=== PATIENT | male | born 1960 | race Caucasian/White ===

== ENCOUNTER 2023-11-04 16:54 | Inpatient (IN) | payer BC, SELFPAY ==
[2023-11-04] VITALS (18 sets, daily range): BP systolic 98–135; BP diastolic 67–115
[2023-11-04] MEDS: LOW STRENGTH ASPIRIN 246 MG PO (14:41)
[2023-11-04 14:48] LABS: % Basophils 0.1 % (0-2); % Eosinophils 0.1 % (0-6); % Immature Granulocytes 0.2 % (0-0.5); % Lymphocytes 19.4 % (20.5-51.1); % Monocytes 8.5 % (1.7-9.3); % Neutrophils 71.7 % (42.2-75.2); Absolute Monocytes 0.9 10^3/uL (0.1-0.6); Absolute Neutrophils 7.2 10^3/uL (1.4-6.5); Hemoglobin 11.5 g/dL (13.0-18.0); Mean Corp Hgb Conc. 32.9 g/dL (33.0-37.0); Mean Corpuscular Hgb 29.2 pg (27.0-31.0); Mean Corpuscular Volume 88.8 fL (80.0-94.0); Mean Platelet Volume 9.5 fL (7.4-10.4); Nucleated Red Blood Cells % 0 % (-); Platelet Count 317 10^3/uL (130-400); Red Blood Cell Count 3.94 10^6/uL (4.70-6.10); Red Cell Dist. Width 12.8 % (11.5-14.5); White Blood Cell Count 10.1 10^3/uL (4.8-10.8)
--- NOTE | 2023-11-04 14:48 | ED.GENMED ---
History of Present Illness
<Jono Rose, DO - Last Filed: 11/04/23 16:08>
General
Chief Complaint: Chest Pain
Source: patient
Exam Limitations: none
Time Seen by Provider: 11/04/23 14:33
History of Present Illness
History of Present Illness:
See MDM
Past History
<Jono Rose, DO - Last Filed: 11/04/23 16:08>
Past History
ED Past Medical History: CVA and NIDDM
Social History
Tobacco: Smoker
Alcohol: None
Phy Exam
<Jono Rose, DO - Last Filed: 11/04/23 16:08>
Physical Exam
Physical Exam:
See MDM
Scores
<Jono Rose, DO - Last Filed: 11/04/23 16:08>
Heart Score for Chest Pain Patients
STEMI patient?: No
History: Highly Suspicious
ECG: Significant ST-Depression
Age: >45 - <65 years
Risk Factors: >/= 3 Risk Factors or History of CAD
Troponin: >/= 3 x Normal Limit
Heart Score for Chest Pain Patients: 9
Heart Score Risk: 72.7 % MACE over next 6 weeks
<Erica Fabian, DO - Last Filed: 11/04/23 16:56>
Heart Score for Chest Pain Patients
Heart Score for Chest Pain Patients: 9
Heart Score Risk: 72.7 % MACE over next 6 weeks
Course
<Jono Rose, DO - Last Filed: 11/04/23 16:08>
Orders/Labs/Results
Orders:
Orders
11/04/23 14:19
Electrocardiogram (*1) Urgent
Reason for Study: Chest Pain
EKG- Treatment ONCE
11/04/23 14:37
Electrocardiogram (*1) Urgent
Reason for Study: Chest Pain
Cardiac Monitoring- Treatment ONCE
IV Insert/Care/Rem.- Treatment PRN
O2 Therapy [RESP] Urgent
Titrate/Wean O2 to maintain O2 sat greater than (%): 90
Special Instructions: Maintain sats >/=90%
Pulse Ox/spot Check [RESP] Urgent
Quantity: 1
Special Instructions: ON ROOM AIR
11/04/23 14:39
Comprehensive Metabolic Panel Urgent
Creatine Phosphokinase Urgent
NT-proBNP Urgent
Comment: ADD ON
Prothrombin Time Urgent
Troponin I Urgent
Aspirin Chewable [Low Strength Aspirin] 324 mg PO NOW STA
11/04/23 14:41
Echo 2D MMode Color/Doppler Routine
Reason for Study: abnormal EKG, chest pain
Complete Blood Count/With Diff Urgent
11/04/23 14:46
Heparin 4,000 units IV NOW STA
11/04/23 14:47
CARDIOLOGY CONSULT Urgent
Consulting Provider: Genaro Ziegler
Was physician already notified: Yes
Nursing to Place Non Medication Order As Directed
Physician Order: PTT 6 hours after initial start of Heparin infusion
Above order entered?: Yes
11/04/23 14:50
CR Chest Portable - 1 View Urgent
Comment:
Reason For Exam: exertional dyspnea
Reason Study Needs to be Portable: Patient Unstable
11/04/23 Dinner
1200 Calorie (10 carb) Diabetic
Flush Continuous pump feedings with water (mL/hr): 25
Heparin 38493 Units/250 ml 25,000 units in 250 ml IV PER PROTOCOL
Weight to be used for heparin protocol in kilograms (kg):: 74.6
Protocol:: Cardiac Tx/Acute Coronary
PTT Goal Range to be used:: PTT 73 to 111 seconds
Order type:: Initial
INITIAL Infusion Dose (UNITS/KG/hr) & then follow protocol:: 15 units/kg/hr
Infusion Dose in UNITS/hr & then follow protocol (UNITS/hr):: 1,100
INFUSION RATE in mL/hr & then follow protocol (mL/hr):: 11
PTT less than or equal to 64 seconds:: Increase rate by 200 units/hr (+ 2 mL/hr)
PTT 64.1 to 72.9 seconds:: Increase rate by 100 units/hr (+ 1 mL/hr)
PTT 73 to 111 seconds:: Target Range. No change in rate.
PTT 111.1 to 130.9 seconds:: Decrease rate by 100 units/hr (- 1 mL/hr)
PTT 131 to 199.9 seconds:: HOLD for 1 hr. Then decrease rate by 200 units/hr (- 2 mL/hr)
PTT greater than or equal to 200 seconds:: HOLD for 2 hrs & Notify Provider. Then decrease by 200 units/hr (-
2 mL/hr)
Lab follow-up:: Each change, PTT q6h until 2 consecutive are therapeutic. Then PTT
daily.
11/04/23 15:22
Add On- LAB Routine
Tests Added?: CK and CK MB
11/04/23 15:44
Add On- LAB Routine
Tests Added?: NT pro BNP
11/04/23 16:07
Add On- LAB Urgent
Tests Added?: BNP
11/04/23 16:43
Admit/Transfer Patient As Directed
Co-Sign Provider:
Level of Care: Inpatient admission
Assign to:: Telemetry
Physician / Group: Rui
Transfer to: Telemetry
Diagnosis: ACS
Patient Condition: Fair
Reason for Telemetry: Chest Pain syndromes
Date to Stop Telemetry: 11/06/23
Time to Stop Telemetry: 11:00
Reason for Hospitalization: ACS
Expected length of stay greater than two midnights?: Yes
ELOS- Estimated Length of Stay in days: 2
I certify the patient meets the requirements for IP care: Yes
11/04/23 16:45
Code Status As Directed
Resuscitation Status: Full Code
11/04/23 16:53
Dextrose 50%-Water [Dextrose 50% Syringe] 12.5 grams IV [id number] PRN
Dextrose 50%-Water [Dextrose 50% Syringe] 12.5 grams IV [id number] PRN
Glucagon [GlucaGen] 1 mg IM PRN PRN
Glucagon [GlucaGen] 1 mg IM PRN PRN
11/04/23 16:54
Bedside Glucose Monitoring As Directed
Frequency: AC&HS
Comment: Change to q6h if pt on TPN, tube feeding or not eating
11/04/23 16:55
Bedside Glucose Monitoring As Directed
Frequency: AC&HS
Comment: Change to q6h if pt on TPN, tube feeding or not eating
11/04/23 18:00
Rosuvastatin Calcium [Crestor] 20 mg PO QPM
11/04/23 20:00
EKG [Electrocardiogram (*1)] Routine
Reason for Study: Abnormal EKG
11/04/23 20:17
PTT Urgent
11/05/23 02:00
Troponin I Q6H
11/05/23 06:00
EKG [Electrocardiogram (*1)] IN AM
Reason for Study: Abnormal EKG
NPO
Allow oral meds: Yes
Allow clear liquids: No
Hgba1c [Glycohemoglobin (HgbA1c)] IN AM
Lipid Profile [Cardiovascular Evaluation] IN AM
11/05/23 07:30
Insulin Aspart Corrective Low [Novolog Flexpen-Low Resistance] See Protocol SC AC
Insulin Aspart Corrective Mod [Novolog Flexpen-Moderate Resistance] See Protocol SC AC
11/05/23 08:00
Aspirin Chewable [Low Strength Aspirin] 81 mg PO DAILY
11/06/23 11:00
DC Protocol for Telemetry ONCE
Abnormal Lab Results
11/04/23 11/04/23
14:39 14:41
RBC 3.94 L 10^6/uL
(4.70-6.10)
Hgb 11.5 L g/dL
(13.0-18.0)
Hct 35.0 L %
(39.0-52.0)
MCHC 32.9 L g/dL
(33.0-37.0)
Absolute Neuts (auto) 7.2 H 10^3/uL
(1.4-6.5)
Absolute Monos (auto) 0.9 H 10^3/uL
(0.1-0.6)
Lymphocytes % 19.4 L %
(20.5-51.1)
PT 15.1 H Sec
(11.4-14.6)
Sodium 131 L mmol/L
(135-145)
BUN 35 H mg/dl
(9-20)
Glucose 218 H mg/dl
(70-99)
Total Bilirubin 2.0 H mg/dl
(0.2-1.3)
Troponin I 7.580 H* ng/ml
11/04/23 14:41
11/04/23 14:39
Vital Signs
Initial and Last Documented VS:
Initial Vital Signs
BP
127/92
11/04/23 14:43
Last Documented Vital Signs
Temp Pulse Resp BP Pulse Ox
99.9 F 99 23 110/74 95
11/04/23 14:48 11/04/23 16:15 11/04/23 16:15 11/04/23 16:15 11/04/23 16:15
<Erica Fabian, DO - Last Filed: 11/04/23 16:56>
Orders/Labs/Results
Orders:
Orders
11/04/23 14:19
Electrocardiogram (*1) Urgent
Reason for Study: Chest Pain
EKG- Treatment ONCE
11/04/23 14:37
Electrocardiogram (*1) Urgent
Reason for Study: Chest Pain
Cardiac Monitoring- Treatment ONCE
IV Insert/Care/Rem.- Treatment PRN
O2 Therapy [RESP] Urgent
Titrate/Wean O2 to maintain O2 sat greater than (%): 90
Special Instructions: Maintain sats >/=90%
Pulse Ox/spot Check [RESP] Urgent
Quantity: 1
Special Instructions: ON ROOM AIR
11/04/23 14:39
Comprehensive Metabolic Panel Urgent
Creatine Phosphokinase Urgent
NT-proBNP Urgent
Comment: ADD ON
Prothrombin Time Urgent
Troponin I Urgent
Aspirin Chewable [Low Strength Aspirin] 324 mg PO NOW STA
11/04/23 14:41
Echo 2D MMode Color/Doppler Routine
Reason for Study: abnormal EKG, chest pain
Complete Blood Count/With Diff Urgent
11/04/23 14:46
Heparin 4,000 units IV NOW STA
11/04/23 14:47
CARDIOLOGY CONSULT Urgent
Consulting Provider: Genaro Ziegler
Was physician already notified: Yes
Nursing to Place Non Medication Order As Directed
Physician Order: PTT 6 hours after initial start of Heparin infusion
Above order entered?: Yes
11/04/23 14:50
CR Chest Portable - 1 View Urgent
Comment:
Reason For Exam: exertional dyspnea
Reason Study Needs to be Portable: Patient Unstable
11/04/23 Dinner
1200 Calorie (10 carb) Diabetic
Flush Continuous pump feedings with water (mL/hr): 25
Heparin 43363 Units/250 ml 25,000 units in 250 ml IV PER PROTOCOL
Weight to be used for heparin protocol in kilograms (kg):: 74.6
Protocol:: Cardiac Tx/Acute Coronary
PTT Goal Range to be used:: PTT 73 to 111 seconds
Order type:: Initial
INITIAL Infusion Dose (UNITS/KG/hr) & then follow protocol:: 15 units/kg/hr
Infusion Dose in UNITS/hr & then follow protocol (UNITS/hr):: 1,100
INFUSION RATE in mL/hr & then follow protocol (mL/hr):: 11
PTT less than or equal to 64 seconds:: Increase rate by 200 units/hr (+ 2 mL/hr)
PTT 64.1 to 72.9 seconds:: Increase rate by 100 units/hr (+ 1 mL/hr)
PTT 73 to 111 seconds:: Target Range. No change in rate.
PTT 111.1 to 130.9 seconds:: Decrease rate by 100 units/hr (- 1 mL/hr)
PTT 131 to 199.9 seconds:: HOLD for 1 hr. Then decrease rate by 200 units/hr (- 2 mL/hr)
PTT greater than or equal to 200 seconds:: HOLD for 2 hrs & Notify Provider. Then decrease by 200 units/hr (-
2 mL/hr)
Lab follow-up:: Each change, PTT q6h until 2 consecutive are therapeutic. Then PTT
daily.
11/04/23 15:22
Add On- LAB Routine
Tests Added?: CK and CK MB
11/04/23 15:44
Add On- LAB Routine
Tests Added?: NT pro BNP
11/04/23 16:07
Add On- LAB Urgent
Tests Added?: BNP
11/04/23 16:43
Admit/Transfer Patient As Directed
Co-Sign Provider:
Level of Care: Inpatient admission
Assign to:: Telemetry
Physician / Group: Rui
Transfer to: Telemetry
Diagnosis: ACS
Patient Condition: Fair
Reason for Telemetry: Chest Pain syndromes
Date to Stop Telemetry: 11/06/23
Time to Stop Telemetry: 11:00
Reason for Hospitalization: ACS
Expected length of stay greater than two midnights?: Yes
ELOS- Estimated Length of Stay in days: 2
I certify the patient meets the requirements for IP care: Yes
11/04/23 16:45
Code Status As Directed
Resuscitation Status: Full Code
11/04/23 16:53
Dextrose 50%-Water [Dextrose 50% Syringe] 12.5 grams IV [id number] PRN
Dextrose 50%-Water [Dextrose 50% Syringe] 12.5 grams IV [id number] PRN
Glucagon [GlucaGen] 1 mg IM PRN PRN
Glucagon [GlucaGen] 1 mg IM PRN PRN
11/04/23 16:54
Bedside Glucose Monitoring As Directed
Frequency: AC&HS
Comment: Change to q6h if pt on TPN, tube feeding or not eating
11/04/23 16:55
Bedside Glucose Monitoring As Directed
Frequency: AC&HS
Comment: Change to q6h if pt on TPN, tube feeding or not eating
11/04/23 18:00
Rosuvastatin Calcium [Crestor] 20 mg PO QPM
11/04/23 20:00
EKG [Electrocardiogram (*1)] Routine
Reason for Study: Abnormal EKG
11/04/23 20:17
PTT Urgent
11/05/23 02:00
Troponin I Q6H
11/05/23 06:00
EKG [Electrocardiogram (*1)] IN AM
Reason for Study: Abnormal EKG
NPO
Allow oral meds: Yes
Allow clear liquids: No
Hgba1c [Glycohemoglobin (HgbA1c)] IN AM
Lipid Profile [Cardiovascular Evaluation] IN AM
11/05/23 07:30
Insulin Aspart Corrective Low [Novolog Flexpen-Low Resistance] See Protocol SC AC
Insulin Aspart Corrective Mod [Novolog Flexpen-Moderate Resistance] See Protocol SC AC
11/05/23 08:00
Aspirin Chewable [Low Strength Aspirin] 81 mg PO DAILY
11/06/23 11:00
DC Protocol for Telemetry ONCE
Abnormal Lab Results
11/04/23 11/04/23
14:39 14:41
RBC 3.94 L 10^6/uL
(4.70-6.10)
Hgb 11.5 L g/dL
(13.0-18.0)
Hct 35.0 L %
(39.0-52.0)
MCHC 32.9 L g/dL
(33.0-37.0)
Absolute Neuts (auto) 7.2 H 10^3/uL
(1.4-6.5)
Absolute Monos (auto) 0.9 H 10^3/uL
(0.1-0.6)
Lymphocytes % 19.4 L %
(20.5-51.1)
PT 15.1 H Sec
(11.4-14.6)
Sodium 131 L mmol/L
(135-145)
BUN 35 H mg/dl
(9-20)
Glucose 218 H mg/dl
(70-99)
Total Bilirubin 2.0 H mg/dl
(0.2-1.3)
Troponin I 7.580 H* ng/ml
11/04/23 14:41
11/04/23 14:39
Vital Signs
Initial and Last Documented VS:
Initial Vital Signs
BP
127/92
11/04/23 14:43
Last Documented Vital Signs
Temp Pulse Resp BP Pulse Ox
99.9 F 99 23 110/74 95
11/04/23 14:48 11/04/23 16:15 11/04/23 16:15 11/04/23 16:15 11/04/23 16:15
<Jono Rose, DO - Last Filed: 11/04/23 16:08>
MDM/Problems Addressed
Differential Diagnosis Includes:
HPI and MDM Narrative:
62-year-old male presenting with exertional dyspnea since Wednesday. Patient followed up with the cardiology office today and had a concerning EKG. He was sent in for further evaluation. The triage nurse came to me immediately after EKG was done.
The EKG was concerning for ST elevation anteriorly with ST depression laterally. This appears unchanged from EKG done earlier in the cardiology office. STEMI alert was not called based on the fact that the patient has no active symptoms. I
reached out to the cardiology team immediately and we discussed loading with aspirin and starting heparin.
Physical exam
General: Well appearing and non-toxic
HEENT: protecting airway
Neck: appears supple
CV: No evidence of cyanosis. Regular rate and rhythm
Resp: No accessory muscle use. Lungs clear
Abd: Non-distended
Extremities: No deformities
Neuro: alert
Psych: Normal affect
Skin: Intact
Problems Addressed including Acute and Chronic Conditions affecting care:
1. Acute coronary syndrome
Acuity: acute
Prognosis: unstable
Details: Given his history his symptoms and concerning EKG, will start heparin and ultimately admit. Patient will require cardiac catheterization.
Updates
4 PM Case rediscussed with cardiology after they evaluated patient. They believe the cardiac event few days the troponin is elevated. Bedside echo happening now. Will continue heparin and admit. On multiple reassessments, patient denies symptoms
at rest
Differential Diagnosis (but not limited to): STEMI, NSTEMI, unstable angina
Testing considered: D-dimer but no leg edema or tenderness
Drug therapy (if applicable): OTC meds, please see d/c instruction regarding Rx drugs
Amount and/or Complexity of Data Reviewed
Clinical info obtained from: Patient
External data reviewed: History of stroke. Patient no longer on Plavix
Labs I independently reviewed (but not limited to): Elevated troponin
Radiology: X-ray independently reviewed: Questional pulmonary edema on chest x-ray
Pulse Ox: not hypoxic
EKG independently reviewed: Sinus rhythm, normal axis, ST elevation in V2 and V3. Lateral ST depression
Plow Holder: Sinus rhythm
Critical Care: The high probability of a clinically significant, sudden or life threatening deterioration of the cardiovascular system(s) required my full and direct attention, intervention and personal management. The aggregate critical care time
was 43 minutes. This time is in addition to time spent performing reported procedures but includes the following:
[x] Data Review and interpretation
[x] Patient assessment and monitoring of vital signs
[x] Documentation
[x] Medication orders and management
Risk of Complication:
Social Determinants of health: Good social support
Discussed with other providers: Cardiology
Escalation of Care includes Admit/Obs: Patient has concerning signs and symptoms for acute coronary syndrome requiring IV heparin and admission
Occasional wrong word or 'sound a like' substitutions may have occurred due to the inherent limitations of voice recognition software. Read the chart carefully and recognize, using context, where substitutions have occurred.
<Jono Rose, DO - Last Filed: 11/04/23 16:08>
*Critical Care Note
Total Time (30-74mins, 75-104mins- exclusive of procedures): 43 min
ED Attending Note
<Jono Rose, DO - Last Filed: 11/04/23 16:08>
-
Portions of this chart may have been created with voice recognition software.� Occasional wrong word or��sound alike� substitutions may have occurred due to the inherent limitations of voice recognition software.
Discharge Plan
Departure
Patient Disposition: Admit
Date of Disposition: 11/04/23
Time of Disposition: 16:07
Admit to: Telemetry
Presentation/result/management discussed w/ accepting MD/DO: Hospitalist
Discharge Problem:
ACS (acute coronary syndrome)
Interventions
Interventions:
*Risk Screen - Suicide Last Done: 11/04/23 14:44
*General Assessment Last Done: 11/04/23 14:46
*Neglect/Abuse Screening Last Done: 11/04/23 14:46
ED- Fall Risk Assessment Last Done: 11/04/23 14:44
*ED COVID-19 Vaccine History Last Done: 11/04/23 14:46
ED- Cardiac Assessment Last Done: 11/04/23 14:44
--- NOTE | 2023-11-04 14:48 | W.PN.CD ---
Addendum entered and electronically signed by Genaro Ziegler MD 11/04/23 16:36:
I saw and examined the patient.
The CUSTOMER OPERATIONS REPRESENTATIVE's note was reviewed and I agree with the note.
Comment: 62M with poorly controlled risk factors presenting 4-5 days after 12-24 hours of anginal type CP. Troponin is 7.6 (CK/MB normal) and echo shows LV dysfunction. This is a missed UT.
- ASA/UFH
- high intensity statin
- echo being done now
- Trend trops -> next should be lower
- Likely LHC in AM
Original Note:
Today's Communication / Plan
-
-Heparin, ASA
-echo now
-cath with timing to be determined
-increase statin dosing
-check lipids , A1C
-follow trops, EKG's
Impression / Plan
-
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 He
has also had ACOSTA. EKG in office was abnormal with sinus tachycardia with ST/T changes. No CP at present. On O2 by HI for SOB, O2 sat 91%.
NSTEMI:
-ASA given, heparin initiated- requires intensive monitoring
-initial trop 7.6, EKG quite abnormal as noted
-currently CP free, possibly occurred Wednesday when he had symptoms
-trend trops, EKG's- echo now
-cardiac cath- timing to be determined
Hx CVA:
-on ASA, statin
-patient with PFO, but declined closure (per OP notes)
DM2:
-on medical therapy as OP
-hold metformin for cath
-SSI
-check A1C
Dyslipidemia:
-update lipids
-continue statin, but increase dosing
Physical Exam
Vital Signs/Labs
Vital Signs
Pulse Resp BP Pulse Ox
112 35 119/84 91
11/04/23 14:45 11/04/23 14:45 11/04/23 14:45 11/04/23 14:45
11/03/23 11/04/23 11/05/23
06:59 06:59 06:59
Actual Weight 74.6 kg
Physical Exam
Constitutional: No acute distress
Respiratory: Other (on O2 by HI)
Neuro/Psych: AO x 3
Data Reviewed
-
Date of Service: November 04, 2023
EKG: Tracing Personally Visualized and interpreted (from office today ST 110 BPM, ST/T abnormalities)
Medical Tests (PFT, Pathology etc): Other (echo ordered)
Labs: Labs Reviewed by me
[2023-11-04] MEDS: HEPARIN 25000 UNITS/250 ML IV (14:57)
[2023-11-04] MEDS: HEPARIN 4000 UNITS IV (15:01)
[2023-11-04 15:03] LABS: INR 1.18; PT 15.1 Sec (11.4-14.6)
[2023-11-04 15:10] LABS: ALT (SGPT) 36 U/L (0-50); AST (SGOT) 41 U/L (17-59); Albumin 4.1 g/dl (3.5-5.0); Alkaline Phosphatase 92 U/L (38-126); Blood Urea Nitrogen 35 mg/dl (9-20); Calcium 9.1 mg/dl (8.4-10.2); Carbon Dioxide 25 mmol/L (22-30); Chloride 98 mmol/L (98-107); Estimated Creatinine Clearance 66 ml/min; Glucose 218 mg/dl (70-99); Potassium 4.2 mmol/L (3.5-5.1); Sodium 131 mmol/L (135-145); Total Protein 6.9 g/dl (6.3-8.2); eGFR > 60.00
[2023-11-04 15:43] LABS: Creatine Phosphokinase 119 U/L (55-170)
[2023-11-04 16:02] LABS: CKMB 2.3 ng/ml (0.0-2.4)
--- NOTE | 2023-11-04 16:21 | CARDSERVLU ---
Echocardiogram with [facility] completed after protocol screening completed. Allergies verified.
Patent IV site: Right antecubital site clear
IV site flushed with 0.9% NaCl pre and post administration.
Diluted bolus method utilized to enhance visualization of ventricular peck.
Total volume given: __3__ mL
Patient tolerated all procedures well without complications.
--- NOTE | 2023-11-04 16:57 | HPS.HSE ---
Addendum entered and electronically signed by Erica Fabian DO 11/04/23 17:56:
Allergies
Allergy/AdvReac Type Severity Reaction Status Date / Time
povidone-iodine Allergy Hives Verified 04/02/23 19:54
[From Betadine]
Home Medications
glipizide 5 mg tablet 5 mg PO BID Diabetes #60 tabs 04/05/23
metformin 500 mg tablet,extended release 24 hr 500 mg PO BID Diabetes #60 tabs 04/05/23
aspirin 81 mg tablet,delayed release 81 mg PO DAILY 11/04/23
rosuvastatin 5 mg tablet 5 mg PO DAILY 11/04/23
Original Note:
Family Physician
-
Family Physician: NO INTERVIEW UNKNOWN
Chief Complaint
-
Chest Pain/SOB x Wednesday
History of Present Illness
62yo M with PMH DM2, HLD, Hx PFO, CVA (2022, cognitive deficits), Former Tobacco Abuse presents to ER with chest and ACOSTA. Pt states on wednesday while at home he noticed substernal 'intense' chest pain 02/01, non radiating. +Chills/Flushing. He states
wednesday he felt better but on Wednesday when doing his routine 1-1.25 mile walk he was SOB 6minutes in (very atypical for him). +LH. Denies fever, chills, chest pain, palps, wheezing, cough, sob, abd pain, n/v/d/c, dysura, calf or leg pain. Pt does
endorse poor po intake lately. Also reports last A1C being increased to around 9 but no changes were made ultimately 2/2 insurance cost complications.
ER course: Pt presents RR 23, HR 99, other V.S.S. Na 131, BUN/Cr 35/1.0, BG 218, Trop 7.58. EKG with concern for ST-Elevations anteriorly and reciprocal ST-depressions laterally. Pt evaluated by cardio. Tentative plan for cath in AM. Started on
heparin gtt.
Medical History
Past Medical History
Past Medical History: Reports Other (DM2, HLD, CVA (2022, cognitive deficit), PFO)
Additional Past Medical History:
CVA, HLD, DM2
Past Surgical History: Reports None
Social History
Tobacco: Former Smoker (Previously 1/2-1PPD smoker x 30 years. Quit 03/2023 after CVA. )
Alcohol: Occasional (socially)
Drug: None
Personal:
Living: With Family
Family History
Family History: Other (Mother wtih DM. Paternal GM withy early age [place]. Brother with Atrial Fibrillation and CVA. Other Brother of unknown cardiac etiology)
Allergies / Home Medications
Allergies reflects when Allergies were last updated in [employer].
Home Medications with original date entered in [employer]
Allergy/Medication List:
None
Review of Systems
-
A 12 point ROS was completed and negative except as noted: Yes
Physical Exam
Vital Signs
Vital Signs
Temp Pulse Resp BP Pulse Ox
99.9 F 99 23 110/74 95
11/04/23 14:48 11/04/23 16:15 11/04/23 16:15 11/04/23 16:15 11/04/23 16:15
Physical Exam
General: Well Developed, Well Nourished and No Apparent Distress
HEENT: NormoCephalic, Moist mucous membranes and Atraumatic
Respiratory: Clear
Cardiac: S1/S2, Regular Rhythm and Other (No reproducible Chest pain); No Murmur or Rub
GI: Soft, Non Tender, Non Distended and Normal Bowel Sounds; No Organomegaly
Rectal: Deferred by Provider
Musculoskeletal: No Clubbing, No Cyanosis and No Edema
Skin: No Rash
Neuro: Nonfocal/grossly intact
Laboratory Results
-
11/04/23 14:41
11/04/23 14:39
Laboratory Results
PT 15.1 Sec (11.4-14.6) H 11/04/23 14:39
INR 1.18 11/04/23 14:39
APTT Cancelled 11/04/23 14:47
Total Bilirubin 2.0 mg/dl (0.2-1.3) H 11/04/23 14:39
AST 41 U/L (17-59) 11/04/23 14:39
ALT 36 U/L (0-50) 11/04/23 14:39
Alkaline Phosphatase 92 U/L (38-126) 11/04/23 14:39
Troponin I Cancelled 11/04/23 20:00
Data Reviewed
-
Diagnostic Radiology: Image Personally Visualized and interpreted
Medical Tests (Nuc Med, Echo, EKG etc): Image Personally Visualized and interpreted
Lab Data: Labs Reviewed by me
Old Records: Reviewed
Impression/Plan
-
ACS / Hx HLD
- EKG ST @ 113bpm, Inferior q-waves, ST-elevation V1-V2, ST-Dep V4-V6, I-AVL, TWI V4-V6, I-AVL, QTC 430ms
- No active chest pain. Suspect acute event likely occurred wednesday
- CXR with possible congestion, though history more likely consistent with mild dehydration. Check BNP
- Trop 7.58. Trend per [facility] protocol. Repeat EKG of AM
- S/P ASA 324mg. Continue heparin bolus/gtt started in ER
- Obtain TTE
- Check Lipids/A1C
- Increase to high intensity statin and continue daily aspirin
- NPO at midnight for tentative cath
Hyponatremia
- Na 131 on admission with chemistry suggestive of pre-renal azotemia. Pt also endorses limited PO intake
- Will give NS @ 70cc/hr and trend for improvement
Uncontrolled DM2 with Hyperglycemia
- BG 218 on admission. Reports A1C rechecked July and increased to ~9
- He was initially told to start jardiance but had insurance cost complications
- Continue home glipizide. SSI/accuchecks. Metformin on hold 08/27 tentative cath
- Recheck A1C
CVA (2022)
- Hx noted. Continue bASA and high intensity statin
Hx PFO
- Declined PFO closure in past
Code Status: Full
Diet: Diabetic, NPO at midnight
DVT ppx - Heparin gtt
[2023-11-04 17:43] LABS: NT-proBNP 10500 pg/ml
[2023-11-04 18:17] LABS: Glucose - Point of Care 165 mg/dl (70-99)
[2023-11-04 20:26] LABS: APTT 48.3 Sec (23.4-35.0)
--- NOTE | 2023-11-04 20:32 | PTCARENOTE ---
ECG obtained as ordered, photo of ECG result sent to LEARNING AND DEVELOPMENT CONSULTANT via tiger text. Pt asymptomatic. No new orders provided. Will continue to monitor.
[2023-11-04] MEDS: CRESTOR 20 MG PO (20:54)
[2023-11-04] MEDS: GLUCOTROL 5 MG PO (20:54)
[2023-11-04] MEDS: 0.45%NACL 1000 IV (20:56)
[2023-11-04 21:34] LABS: Glucose - Point of Care 206 mg/dl (70-99)
[2023-11-05] VITALS (17 sets, daily range): BP systolic 89–122; BP diastolic 61–85; PULSE 107–114; BMI 28.2
[2023-11-05 02:29] LABS: % Basophils 0.1 % (0-2); % Eosinophils 0.6 % (0-6); % Immature Granulocytes 0.2 % (0-0.5); % Lymphocytes 13.2 % (20.5-51.1); % Monocytes 6.9 % (1.7-9.3); Absolute Eosinophils 0.1 10^3/uL (0-0.7); Absolute Lymphocytes 1.3 10^3/uL (1.2-3.4); Absolute Monocytes 0.7 10^3/uL (0.1-0.6); Absolute Neutrophils 7.5 10^3/uL (1.4-6.5); Hematocrit 32.6 % (39.0-52.0); Hemoglobin 11.4 g/dL (13.0-18.0); Mean Corpuscular Hgb 29.8 pg (27.0-31.0); Mean Corpuscular Volume 85.1 fL (80.0-94.0); Mean Platelet Volume 9.3 fL (7.4-10.4); Nucleated Red Blood Cells % 0 % (-); Platelet Count 316 10^3/uL (130-400); Red Blood Cell Count 3.83 10^6/uL (4.70-6.10); Red Cell Dist. Width 12.9 % (11.5-14.5); White Blood Cell Count 9.5 10^3/uL (4.8-10.8)
[2023-11-05] MEDS: TYLENOL 650 MG PO (02:34)
[2023-11-05 02:44] LABS: APTT 42.1 Sec (23.4-35.0)
[2023-11-05 03:14] LABS: Blood Urea Nitrogen 33 mg/dl (9-20); Carbon Dioxide 25 mmol/L (22-30); Chloride 99 mmol/L (98-107); Estimated Creatinine Clearance 73 ml/min; Glucose 198 mg/dl (70-99); HDL Cholesterol 38 mg/dl; LDL Cholesterol, Calculated 85 mg/dl; Magnesium 1.8 mg/dl (1.6-2.3); Sodium 131 mmol/L (135-145); Total Cholesterol 149 mg/dl (50-199); Triglyceride 130 mg/dl (10-149); Very Low Density Lipoprotein 26 mg/dl (0-30); eGFR > 60.00
[2023-11-05 07:27] LABS: Glucose - Point of Care 202 mg/dl (70-99)
[2023-11-05] MEDS: GLUCOTROL PO (07:55)
[2023-11-05] MEDS: LOW STRENGTH ASPIRIN 81 MG PO (09:03)
[2023-11-05] MEDS: NOVOLOG FLEXPEN-MODERATE RESISTANCE 3 UNITS SC (09:04)
[2023-11-05 09:23] LABS: APTT 38.2 Sec (23.4-35.0)
[2023-11-05 09:40] LABS: Osmolality Urine 811 mOsm/kg (300-900)
[2023-11-05 09:58] LABS: Glycohemoglobin (HgbA1c) 8.5 % (4.0-5.6)
[2023-11-05 10:15] LABS: Urine Sodium 6 mmol/L (30-90)
--- NOTE | 2023-11-05 11:23 | W.PN.CD ---
Today's Communication / Plan
-
- LHC today
- Add SLGT2i and BB now
- Add MRA and Entresto after LHC
- repeat echo in 90 days to assess for ICD indication
Impression / Plan
-
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 He
has also had ACOSTA. EKG in office was abnormal with sinus tachycardia with ST/T changes. No CP at present. On O2 by NV for SOB, O2 sat 91%.
NSTEMI:
- ASA/UFH
- statin
- CK/MB/troponin consistent with missed NH
- LHC today
ICM EF 30%
- Add SLGT2i and BB now
- Add MRA and Entresto after LHC
- repeat echo in 90 days to assess for ICD indication
Hx CVA:
-on ASA, statin
-patient with PFO, but declined closure (per OP notes)
DM2:
-on medical therapy as OP
-hold metformin for cath
-SSI
-check A1C -? 8.5
Dyslipidemia:
-update lipids
-continue statin, but increase dosing
Dispo
- LHC
- add GDMT for ICM
Subjective: No CP, palps, or dyspnea
TTE Baljeet 11: Severely reduced left ventricular systolic function. LV ejection fraction is 25-30% by visual assessment. There are regional wall motion abnormalities concerning for severe CAD (below). Mild mitral regurgitation. Color flow pattern
suggestive of PFO. Compared to prior study of Mar 2023, LV dysfunction is new.
Laboratory Data
11/04/23 11/05/23
14:39 02:22
Hgb 11.4 L
Creatinine 0.9
Hemoglobin A1c 8.5 H
Troponin I 7.580 H* 6.000 H*
Triglycerides 130
Total Cholesterol 149
LDL Cholesterol, Calc 85
HDL Cholesterol 38
Generic Name Dose Route Start Last Admin
Trade Name Kari PRN Reason Stop Dose Admin
Heparin Sodium 25,000 units in 250 mls @ 0 mls/hr 11/04/23 15:00 11/04/23 14:57
Heparin 46401 Units/250 Ml IV 250 mls
PER PROTOCOL HAYDE
Protocol
Per Protocol
Rosuvastatin Calcium 20 mg 11/04/23 18:00 11/04/23 20:54
Rosuvastatin (Crestor) 20 Mg Tablet PO 12/02/23 17:59 20 mg
QPM HAYDE
Aspirin 81 mg 11/05/23 08:00 11/05/23 09:03
Aspirin 81 Mg Chewable Tablet PO 12/03/23 07:59 81 mg
DAILY HAYDE
Physical Exam
Vital Signs/Labs
Vital Signs
Temp Pulse Resp BP Pulse Ox
37.1 C 105 20 112/78 90
11/05/23 07:30 11/05/23 07:30 11/05/23 07:30 11/05/23 07:30 11/05/23 07:30
11/04/23 11/05/23 11/06/23
06:59 06:59 06:59
Actual Weight 164 lb
11/05/23 02:22
11/05/23 02:22
PT 15.1 Sec (11.4-14.6) H 11/04/23 14:39
INR 1.18 11/04/23 14:39
APTT Cancelled 11/05/23 18:00
Magnesium 1.8 mg/dl (1.6-2.3) 11/05/23 02:22
Triglycerides 130 mg/dl (10-149) 11/05/23 02:22
LDL Cholesterol, Calc 85 mg/dl 11/05/23 02:22
VLDL Cholesterol, Calc 26 mg/dl (0-30) 11/05/23 02:22
HDL Cholesterol 38 mg/dl 11/05/23 02:22
11/04/23 11/04/23 11/04/23
14:39 16:24 20:00
Dvz-C-Ahgixjwaeur Pept [id number] Cancelled Cancelled
LAB Results
11/04/23 11/04/23 11/05/23
14:39 20:00 02:22
Troponin I 7.580 H* Cancelled 6.000 H*
Physical Exam
Constitutional: No acute distress and Comfortable
EENT: Anicteric and Moist mucous membranes
Cardiovascular: Rhythm & rate is regular, Pedal edema is absent, Systolic murmur absent and Diastolic murmur absent
Respiratory: Respiratory effort normal
GI: Soft, Distention absent, Non tender and Normal bowel sounds
Neuro/Psych: Alert and Oriented
Data Reviewed
-
Date of Service: November 05, 2023
[2023-11-05 11:43] LABS: Glucose - Point of Care 133 mg/dl (70-99)
[2023-11-05] MEDS: NOVOLOG FLEXPEN-MODERATE RESISTANCE SC ×2 (11:52→17:30)
--- NOTE | 2023-11-05 11:55 | W.PN.HOSP.TC ---
Today's Communication/Plan
-
Stop IVF
Lasix 40 IV BID
BB
Cath today
Assessment / Plan
Assessment / Plan
62-year-old male with chest pain which is also some shortness of breath.
Cardiovascular system S1-S2 appreciated
Chest bilateral rales
Abdomen soft and nontender
No pedal edema
# Chest pain
Echo following 24-severely reduced LV systolic function. Ejection fraction 25 to 30%. Regional wall motion abnormalities concerning for coronary artery disease
Patient has ischemic changes on EKG
Elevated troponin
Treating as non-STEMI
Continue aspirin, Statin,BB,heparin drip
# Acute hypoxic respiratory insufficiency
likely secondary to CHF-acute systolic
Chest x-ray reviewed by me
diuresis
SGLT2 inhibitor and beta-blockers added
May benefit from ARNI after cath
# Hyperlipidemia-continue statin
# Hyponatremia-check serum and urine osmolality studies
Likely secondary to hypervolemia
# Poorly controlled diabetes with hyperglycemia
Check hemoglobin A1c hemoglobin A1c 8.5
Sliding scale coverage
Continue glipizide ,hold metformin to the dye
# History of PFO-declined closure in the past
# CVA 2022 continue aspirin and statin
# Ex-smoker
# Full code
# DVT prophylaxis-heparin
Discussed with at bedside
Discussed with nursing
Anticipated Discharge: > 48 hours
Subjective/Interval History
-
Date of Service: November 05, 2023
Objective Data
-
Labs:
Laboratory Results
11/05/23 11/05/23 11/05/23
02:22 08:55 15:00
WBC 9.5
Hgb 11.4 L
Hct 32.6 L
Plt Count 316
APTT 42.1 H 38.2 H Pending
Sodium 131 L
Potassium 5.0
Chloride 99
Carbon Dioxide 25
BUN 33 H
Creatinine 0.9
Glucose 198 H
Calcium 9.0
11/05/23
18:00
WBC
Hgb
Hct
Plt Count
APTT Cancelled
Sodium
Potassium
Chloride
Carbon Dioxide
BUN
Creatinine
Glucose
Calcium
Vital Signs:
Vital Signs
Temp Pulse Resp BP Pulse Ox
98.8 F 105 22 112/78 95
11/05/23 11:40 11/05/23 07:30 11/05/23 11:40 11/05/23 07:30 11/05/23 11:40
I&O
11/04/23 11/05/23 11/06/23
06:59 06:59 06:59
Intake Total 980 / 980
Balance 980 / 980
[2023-11-05] MEDS: FARXIGA 10 MG PO (12:17)
--- NOTE | 2023-11-05 13:30 | CM ---
Consult received from Cardiology regarding medication costs for: Brilinta 90 mg BID, Entresto 24-26 BID, Farxiga 10 mg daily and Jardiance 10 mg daily:
Brilinta 90 mg BID-30-450.15 90-1230.45
Entresto 24-26 BID 30-686.01-90-1876.23
Farxiga 10 mg 30-580.67 90-1587.80
Jardiance 30 mg- 609.41 90-days 1666.47
This information was relayed back to Huong Oro from Cardiology.
Will meet with patient to obtain information for assessment.
[2023-11-05 15:25] LABS: APTT 53.2 Sec (23.4-35.0)
--- NOTE | 2023-11-05 15:41 | CM ---
Reviewed chart, met with patient to obtain information for assessment. Patient stated that he lives with his in a two story home with two steps to enter. He described himself as independent with all his ADLs, personal care, dressing and
bathing. He can drive and can get himself to all his appointments and get to the provider. 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
Patient denied DME. He had o2 at time of assessment but does not have home o2 and is hoping to be able to wean.
He has never had VN services or been to a SNF.
Patient has a prescription plan and uses [facility] in [place] for all of his medications.
His PCP is Dr. Alexandre Mcmillan.
Patient expressed that he feels he will be able to return home with his at discharge. Will watch for o2 needs.
Plan: Case management will continue to follow and assist with discharge planning. Home no needs vrs home with o2.
[2023-11-05] MEDS: LASIX IV (16:01)
--- NOTE | 2023-11-05 16:19 | ITS.CL.CATH ---
[facility] - Catheterization
Cardiac Catheterization
Procedure Report:
CARDIAC CATHETERIZATION REPORT
Date of Procedure: 11/05/2023
Referring: Genaro Ziegler MD
HEMODYNAMIC DATA (RHC done at weight 164 lbs on 6 L/min O2)
AO: 122/82
LV: 122/34
PCWP: 30
PA: 57/34
RV: 57/17
RA: 15
Oximetry: Ao 85%, PA 52%, cardiac output 5.0, cardiac index 2.8
LEFT VENTRICULOGRAPHY: Distal anterolateral and apical akinesis with severe inferior hypokinesis with EF visually estimated at 25%. There is 1+ mitral regurgitation.
CORONARY ANGIOGRAPHY
Dominance: Right
Left Main: 20% distal tapering
LAD: 70% proximal LAD stenosis at the takeoff of the large D1. The mid LAD is occluded at the takeoff of the third septal publications editor with YAMILETH grade 0 flow distal to the occlusion. There is faint retrograde collateral filling of the distal LAD.
The large third septal publications editor has 90% ostial stenosis.
Circumflex: 30% proximal circumflex stenosis. OM1 and OM 2 are small. OM 3 is large with 30% proximal stenosis. There is AV groove collateralization of the distal right AV groove with filling of two right posterolateral branches and the RPDA
RCA: Proximal RCA occlusion. There is [id number]-omrtt collateral filling of the distal RCA branches.
Closure Device: None-the procedure was performed via the right radial artery and right femoral vein. The Bruce's test was normal prior to the procedure.
Radiation (mGy): 307
DAP (cm2.Gy): 33.8
Fluoroscopy time: 4.2 minutes
CONCLUSIONS
1: Late presentation anterior infarction
2: Elevated filling pressures with moderate pulmonary hypertension
3. Distal anterolateral and apical akinesis with severe inferior hypokinesis with EF estimated at 25%
4. Mild mitral regurgitation
5. 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
6. At this time, medical therapy is recommended for his CAD; however, if there is evidence of significant provokable ischemia in the LAD distribution PCI of the proximal and mid LAD is a reasonable option. I see no role for CABG
7. Medication directed at his LV dysfunction and diuresis is recommended at this time. I will order a Lexiscan for Tuesday 11/07 to determine whether there is significant provokable ischemia in the LAD distribution
8. Continue dual antiplatelet therapy (post [place] indication)
Copy to: Tomy Wells DO, Alexandre De La Torre MD
Nick Diaz MD, [facility], [facility]
--- NOTE | 2023-11-05 16:39 | W.PN.UPDATE ---
Update Note
Progress Note Update
Patient arrived for cardiac cath with O2 sat 85% on 6 L/min O2. Left and right heart catheterization performed. The degree of hypoxemia is disproportionate to the elevation in filling pressures and I am concerned about the possibility of a
pulmonary embolism. We will obtain a CT PE study prior to transfer to the IVU
--- NOTE | 2023-11-05 17:05 | PTCARENOTE ---
Received pt from phlebotomist medical lab assistant. AOx3, no complaints of pain or discomfort. Educated pt on bedrest/limitations and expected OOB time. On 6L O2. Oriented to room and unit. Call amezquita within reach.
[2023-11-05 17:07] LABS: Osmolality Serum 287 mOsm/kg (275-300)
[2023-11-05] MEDS: LASIX 40 MG IV (17:24)
[2023-11-05] MEDS: GLUCOTROL 5 MG PO (17:24)
[2023-11-05] MEDS: COZAAR 25 MG PO (17:24)
[2023-11-05] MEDS: CRESTOR 20 MG PO (17:30)
[2023-11-05 17:31] LABS: Glucose - Point of Care 105 mg/dl (70-99)
[2023-11-05 18:01] LABS: Glucose - Point of Care 107 mg/dl (70-99)
--- NOTE | 2023-11-05 18:16 | W.PN.UPDATE ---
Update Note
Progress Note Update
Cardiac cath noted
Lasix ordered
CT with no PE but airspace disease unclear of pneumonia or CHF.
Will treat with doxycycline and ceftriaxone and get blood cultures
Obtain sputum cultures if possible
Check COVID
1 time temperature of 100.7 noted
[2023-11-05 19:22] LABS: COVID-19 Antigen Negative (Negative)
--- NOTE | 2023-11-05 20:00 | PTCARENOTE ---
received pt from previous shift on o2 at 5lnc. o2 sat=96%. pt denies chest pain or discomfort. lungs decreased at r base.occasional dry cough noted.family with pt. very interested in pt care. pt and family educated on cad and chf. booklets given.
questions answered. support provided frequently.blood culture drawn as ordered.
[2023-11-05] MEDS: STERILE WATER FOR INJECTION 10 ML IV (21:10)
[2023-11-05] MEDS: ROCEPHIN 1000 MG IV (21:10)
[2023-11-05] MEDS: VIBRAMYCIN 100 MG PO (21:11)
[2023-11-05 21:33] LABS: Glucose - Point of Care 104 mg/dl (70-99)
[2023-11-05] MEDS: TOPROL XL PO (23:31)
[2023-11-05] MEDS: TOPROL XL 12.5 MG PO (23:32)
[2023-11-06] VITALS (8 sets, daily range): BP systolic 86–112; BP diastolic 59–70; BMI 27.3
--- NOTE | 2023-11-06 00:12 | PTCARENOTE ---
meds given as ordered. weanining o2 as tolerated. pt denies pain or discomfort. states his breathing has improved.o2 sat=97% on 2lnc at this time.bp has been lower. 95/63, 99/70, 89/63. spoke with cardiac pa about toprol xl dose for tonight. dose
decreased to 12.5 mg and given as ordered by cardiac pa.side effects reviewed with pt and . both state understanding.will observe.
[2023-11-06 04:24] LABS: Hematocrit 30.4 % (39.0-52.0); Hemoglobin 10.6 g/dL (13.0-18.0); Mean Corp Hgb Conc. 34.9 g/dL (33.0-37.0); Mean Corpuscular Hgb 29.5 pg (27.0-31.0); Mean Corpuscular Volume 84.7 fL (80.0-94.0); Mean Platelet Volume 9.5 fL (7.4-10.4); Platelet Count 387 10^3/uL (130-400); Red Blood Cell Count 3.59 10^6/uL (4.70-6.10); Red Cell Dist. Width 12.7 % (11.5-14.5); White Blood Cell Count 7.2 10^3/uL (4.8-10.8)
[2023-11-06 07:16] LABS: Glucose - Point of Care 87 mg/dl (70-99)
[2023-11-06] MEDS: NOVOLOG FLEXPEN-MODERATE RESISTANCE SC ×3 (07:25→17:47)
[2023-11-06] MEDS: GLUCOTROL 5 MG PO ×2 (08:36→17:49)
[2023-11-06] MEDS: VIBRAMYCIN 100 MG PO ×2 (08:36→21:07)
[2023-11-06] MEDS: LOW STRENGTH ASPIRIN 81 MG PO (08:36)
[2023-11-06] MEDS: FARXIGA 10 MG PO (08:36)
[2023-11-06] MEDS: LASIX 40 MG IV ×2 (08:37→16:47)
--- NOTE | 2023-11-06 08:53 | W.PN.CD ---
Today's Communication / Plan
-
- Stress Wednesday to eval for ischemia
- Added SLGT2i and BB
- Add MRA and Entresto when BP supports
- continue diuresis
Impression / Plan
-
Assessment/Plan: 62M with late presentation of anterior [place]
Anterior [place]
- ASA/statin
- LHC below
- Stress Wednesday to eval for ischemia
ICM EF 30%
- Added SLGT2i and BB
- Add MRA and Entresto when BP supports
- continue diuresis
- repeat echo in 90 days to assess for ICD indication
Hx CVA:
-on ASA, statin
-patient with PFO, but declined closure (per OP notes)
DM2:
Dyslipidemia:
Dispo: explained situation, etc., at length to patient and family
Subjective: No CP, palps, or dyspnea
TTE Aug 05: Severely reduced left ventricular systolic function. LV ejection fraction is 25-30% by visual assessment. There are regional wall motion abnormalities concerning for severe CAD (below). Mild mitral regurgitation. Color flow pattern
suggestive of PFO. Compared to prior study of Mar 2023, LV dysfunction is new.
RHC Aug 06 (164 lbs.): RA 15, RV 57/17, PA 57/34, PCWP 30
C Aug 06: LVEDP 34, CI 2.8, EF 25%. 70%pLAD and 100% mLAD, 90% third septal, 30 pLCx, 100% pRCA with right to left collateral
Laboratory Data
11/04/23 11/05/23
14:39 02:22
Hgb 11.4 L
Creatinine 0.9
Hemoglobin A1c 8.5 H
Troponin I 7.580 H* 6.000 H*
Triglycerides 130
Total Cholesterol 149
LDL Cholesterol, Calc 85
HDL Cholesterol 38
Generic Name Dose Route Start Last Admin
Trade Name Freq PRN Reason Stop Dose Admin
Heparin Sodium 25,000 units in 250 mls @ 0 mls/hr 11/04/23 15:00 11/04/23 14:57
Heparin 49856 Units/250 Ml IV 250 mls
PER PROTOCOL HAYDE
Protocol
Per Protocol
Rosuvastatin Calcium 20 mg 11/04/23 18:00 11/04/23 20:54
Rosuvastatin (Crestor) 20 Mg Tablet PO 12/02/23 17:59 20 mg
QPM HAYDE
Aspirin 81 mg 11/05/23 08:00 11/05/23 09:03
Aspirin 81 Mg Chewable Tablet PO 12/03/23 07:59 81 mg
DAILY HAYDE
Physical Exam
Vital Signs/Labs
Vital Signs
Temp Pulse Resp BP Pulse Ox
37.0 C 90 16 99/65 95
11/06/23 07:09 11/06/23 07:09 11/06/23 07:09 11/05/23 23:32 11/06/23 07:09
11/05/23 11/06/23 11/07/23
06:59 06:59 06:59
Actual Weight 164 lb
11/06/23 03:56
11/05/23 02:22
PT 15.1 Sec (11.4-14.6) H 11/04/23 14:39
INR 1.18 11/04/23 14:39
APTT Cancelled 11/05/23 18:00
Magnesium 1.8 mg/dl (1.6-2.3) 11/05/23 02:22
Triglycerides 130 mg/dl (10-149) 11/05/23 02:22
LDL Cholesterol, Calc 85 mg/dl 11/05/23 02:22
VLDL Cholesterol, Calc 26 mg/dl (0-30) 11/05/23 02:22
HDL Cholesterol 38 mg/dl 11/05/23 02:22
11/04/23 11/04/23 11/04/23
14:39 16:24 20:00
Nkp-Z-Ntybtofityy Pept [id number] Cancelled Cancelled
LAB Results
11/04/23 11/04/23 11/05/23
14:39 20:00 02:22
Troponin I 7.580 H* Cancelled 6.000 H*
Physical Exam
Constitutional: No acute distress
EENT: Anicteric and Moist mucous membranes
Cardiovascular: Rhythm & rate is regular, Pedal edema is absent, Systolic murmur absent and Diastolic murmur absent
Respiratory: Respiratory effort normal
GI: Soft, Distention absent, Non tender and Normal bowel sounds
Neuro/Psych: Alert
Data Reviewed
-
Date of Service: November 06, 2023
[2023-11-06] MEDS: COZAAR PO (09:31)
[2023-11-06 12:05] LABS: Glucose - Point of Care 146 mg/dl (70-99)
--- NOTE | 2023-11-06 12:23 | PTCARENOTE ---
11/06/23 Received patient from prior shift in bed with and son at bedside. Explained all procedures, plan of care, medications and side effects. All questions were answered and support given. Pt is AAO x4, no complaints of pain or shortness of
breath. BP this am was less then 100 Systolic. Per Cardiology hold Cozaar and Toprol XL discontinued. Pt on 2L NC @97%. Will monitor throughout shift.
--- NOTE | 2023-11-06 12:57 | W.PN.HOSP.TC ---
Today's Communication/Plan
-
see bold
Assessment / Plan
Assessment / Plan
Gen: NAD, AAOx3.
Eyes: EOMI, PERRLA, no scleral icterus.
Neck: supple.
CV: RRR, +S1/S2, no m/r/g.
Resp: CTAB, no rales, wheezes, or rhonchi.
Abd: +BS, soft, NT, ND
Skin: No rashes.
Neuro: CN 2-12 intact, non-focal.
Psych: Normal mood and affect.
Echo: EF 25-30% (new from mar 2023), RWMA concerning for severe CAD, mild MR
Cardiac cath 11/05/23:
1: Late presentation anterior infarction
2: Elevated filling pressures with moderate pulmonary hypertension
3. Distal anterolateral and apical akinesis with severe inferior hypokinesis with EF estimated at 25%
4. Mild mitral regurgitation
5. 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
6. At this time, medical therapy is recommended for his CAD; however, if there is evidence of significant provokable ischemia in the LAD distribution PCI of the proximal and mid LAD is a reasonable option. I see no role for CABG
7. Medication directed at his LV dysfunction and diuresis is recommended at this time. I will order a Lexiscan for Tuesday 11/07 to determine whether there is significant provokable ischemia in the LAD distribution
8. Continue dual antiplatelet therapy (post [place] indication)
Acute NSTEMI:
-trop peaked at 7.580
-was on heparin gtt, now off
-echo and cath above
-stress test 11/08/23
-cont GDMT with ASA/statin/ARB/Farxiga/BB
-for Entresto at some point in future as per cards
Acute hypoxic respiratory insufficiency due to acute HFrEF:
-cont IV lasix
-cont BB
-daily wts, I/Os, FR
Other problems:
DM2: a1c 8.5%. Cont Glipizide/Farxiga/SSI/accuchecks/diabetic diet
Hyperlipidemia: continue statin
Hypervolemic hyponatremia, mild
h/o PFO: declined closure in the past
h/o CVA 2022: cont ASA/statin
h/o tobacco abuse disorder
FULL/Lovenox
Anticipated Discharge: > 48 hours
Subjective/Interval History
-
Date of Service: November 06, 2023
Denies CP/SOB.
Objective Data
-
Labs:
Laboratory Results
11/06/23
03:56
WBC 7.2
Hgb 10.6 L
Hct 30.4 L
Plt Count 387 D
Vital Signs:
Vital Signs
Temp Pulse Resp BP Pulse Ox
98.3 F 95 16 99/65 100
11/06/23 11:24 11/06/23 11:24 11/06/23 11:24 11/05/23 23:32 11/06/23 11:24
I&O
11/05/23 11/06/23 11/07/23
06:59 06:59 06:59
Intake Total 980 / 980
Output Total 600 / 600
Balance 980 / 980 -600 / -600
[2023-11-06 17:44] LABS: Glucose - Point of Care 128 mg/dl (70-99)
[2023-11-06] MEDS: LOVENOX 40 MG SC (17:49)
[2023-11-06] MEDS: CRESTOR 20 MG PO (17:49)
[2023-11-06] MEDS: STERILE WATER FOR INJECTION 10 ML IV (21:07)
[2023-11-06] MEDS: ROCEPHIN 1000 MG IV (21:07)
[2023-11-06 21:16] LABS: Glucose - Point of Care 157 mg/dl (70-99)
[2023-11-06] MEDS: TOPROL XL 25 MG PO (22:19)
[2023-11-07] VITALS (7 sets, daily range): BP systolic 96–137; BP diastolic 61–124; BMI 27.0
[2023-11-07 08:11] LABS: Glucose - Point of Care 112 mg/dl (70-99)
[2023-11-07] MEDS: LASIX 40 MG IV (08:38)
[2023-11-07] MEDS: COZAAR 25 MG PO (08:39)
[2023-11-07] MEDS: VIBRAMYCIN 100 MG PO ×2 (08:39→21:47)
[2023-11-07] MEDS: GLUCOTROL 5 MG PO ×2 (08:39→17:05)
[2023-11-07] MEDS: FARXIGA 10 MG PO (08:39)
[2023-11-07] MEDS: LOW STRENGTH ASPIRIN 81 MG PO (08:39)
[2023-11-07] MEDS: NOVOLOG FLEXPEN-MODERATE RESISTANCE SC ×2 (08:40→12:52)
--- NOTE | 2023-11-07 08:50 | W.PN.CD ---
Today's Communication / Plan
-
- Stress tomorrow to eval for ischemia
- continue diuresis but lower to po and check BMP
Impression / Plan
-
Assessment/Plan: 62M with late presentation of anterior [place]
Anterior [place]
- ASA/statin
- LHC below
- Stress tomorrow to eval for ischemia
ICM EF 30%
- Added ARB, SLGT2i and BB - BP limiting
- Add MRA when BP supports
- continue diuresis but lower to po and check BMP
- repeat echo in 90 days to assess for ICD indication
Hx CVA:
-on ASA, statin
-patient with PFO, but declined closure (per OP notes)
DM2:
Dyslipidemia:
Dispo: Carlos MPI in AM to decide if revascularization is indicated
Subjective: No CP, palps, or dyspnea
TTE Aug 05: Severely reduced left ventricular systolic function. LV ejection fraction is 25-30% by visual assessment. There are regional wall motion abnormalities concerning for severe CAD (below). Mild mitral regurgitation. Color flow pattern
suggestive of PFO. Compared to prior study of Mar 2023, LV dysfunction is new.
RHC Aug 06 (164 lbs.): RA 15, RV 57/17, PA 57/34, PCWP 30
C Aug 06: LVEDP 34, CI 2.8, EF 25%. 70%pLAD and 100% mLAD, 90% third septal, 30 pLCx, 100% pRCA with right to left collateral
Laboratory Data
11/04/23 11/05/23
14:39 02:22
Hgb 11.4 L
Creatinine 0.9
Hemoglobin A1c 8.5 H
Troponin I 7.580 H* 6.000 H*
Triglycerides 130
Total Cholesterol 149
LDL Cholesterol, Calc 85
HDL Cholesterol 38
Generic Name Dose Route Start Last Admin
Trade Name Freq PRN Reason Stop Dose Admin
Heparin Sodium 25,000 units in 250 mls @ 0 mls/hr 11/04/23 15:00 11/04/23 14:57
Heparin 88154 Units/250 Ml IV 250 mls
PER PROTOCOL HAYDE
Protocol
Per Protocol
Rosuvastatin Calcium 20 mg 11/04/23 18:00 11/04/23 20:54
Rosuvastatin (Crestor) 20 Mg Tablet PO 12/02/23 17:59 20 mg
QPM HAYDE
Aspirin 81 mg 11/05/23 08:00 11/05/23 09:03
Aspirin 81 Mg Chewable Tablet PO 12/03/23 07:59 81 mg
DAILY HAYDE
Physical Exam
Vital Signs/Labs
Vital Signs
Temp Pulse Resp BP Pulse Ox
37.0 C 87 20 100/64 96
11/07/23 05:11 11/07/23 05:00 11/07/23 07:36 11/07/23 07:36 11/07/23 07:36
11/06/23 11/07/23 11/08/23
06:59 06:59 06:59
Actual Weight 158 lb 11.725 oz 157 lb 6.561 oz
11/06/23 03:56
11/05/23 02:22
PT 15.1 Sec (11.4-14.6) H 11/04/23 14:39
INR 1.18 11/04/23 14:39
APTT Cancelled 11/05/23 18:00
Magnesium 1.8 mg/dl (1.6-2.3) 11/05/23 02:22
Triglycerides 130 mg/dl (10-149) 11/05/23 02:22
LDL Cholesterol, Calc 85 mg/dl 11/05/23 02:22
VLDL Cholesterol, Calc 26 mg/dl (0-30) 11/05/23 02:22
HDL Cholesterol 38 mg/dl 11/05/23 02:22
11/04/23 11/04/23 11/04/23
14:39 16:24 20:00
Rqy-J-Acoqltbfpbn Pept [id number] Cancelled Cancelled
LAB Results
11/04/23 11/04/23 11/05/23
14:39 20:00 02:22
Troponin I 7.580 H* Cancelled 6.000 H*
Physical Exam
Constitutional: No acute distress
EENT: Anicteric and Moist mucous membranes
Cardiovascular: Rhythm & rate is regular, Pedal edema is absent, JVD pressure is normal, Systolic murmur absent and Diastolic murmur absent
Respiratory: Respiratory effort normal
GI: Soft, Distention absent, Non tender and Normal bowel sounds
Neuro/Psych: Alert
Data Reviewed
-
Date of Service: November 07, 2023
--- NOTE | 2023-11-07 09:25 | W.PN.HOSP.TC ---
Today's Communication/Plan
-
Check BMP
May restart metformin after that
Stress test tomorrow
CXR in am
Assessment / Plan
Assessment / Plan
CT of the chest-no PE. Moderate bilateral upper and lower lobe central space disease concerning for pneumonia. CHF not excluded. Moderate bilateral pleural effusions right larger than left new. Mild bibasilar consolidation which may represent
pneumonia or atelectasis new.
Echo: EF 25-30% (new from mar 2023), RWMA concerning for severe CAD, mild MR
Cardiac cath 11/05/23:
1: Late presentation anterior infarction
2: Elevated filling pressures with moderate pulmonary hypertension
3. Distal anterolateral and apical akinesis with severe inferior hypokinesis with EF estimated at 25%
4. Mild mitral regurgitation
5. 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
6. At this time, medical therapy is recommended for his CAD; however, if there is evidence of significant provokable ischemia in the LAD distribution PCI of the proximal and mid LAD is a reasonable option. I see no role for CABG
7. Medication directed at his LV dysfunction and diuresis is recommended at this time. I will order a Lexiscan for Tuesday 11/07 to determine whether there is significant provokable ischemia in the LAD distribution
8. Continue dual antiplatelet therapy (post [place] indication)
Patient feels a lot better today. Off oxygen
Cardiovascular system S1-S2 appreciated
Chest clear to auscultation
Abdomen soft and nontender
No pedal edema
#Acute NSTEMI:
-trop peaked at 7.580
-echo and cath above
-stress test 11/08/23
-cont GDMT with ASA/statin/ARB/Farxiga/BB
-for Entresto at some point in future as per cards
#Acute hypoxic respiratory insufficiency due to acute HFrEF:
-cont IV lasix
-cont BB
-daily wts, I/Os, FR
-BMP today
# Fever-with findings of pneumonia on CT started the patient on Doxy and ceftriaxone
COVID serology negative
Repeat chest x-ray tomorrow
# Hyponatremia secondary to fluid overload
Continue Lasix
#DM2: a1c 8.5%. Cont Glipizide/Farxiga/SSI/accuchecks/diabetic diet
Restart metformin after BMP
#Hyperlipidemia: continue statin
#h/o PFO: declined closure in the past
#h/o CVA 2022: cont ASA/Statin
#h/o tobacco abuse disorder
#FULL CODE
#DVT Prophylaxis-Lovenox
Discussed with at bedside
Anticipated Discharge: Within 24 hours
Subjective/Interval History
-
Date of Service: November 07, 2023
Objective Data
-
Vital Signs:
Vital Signs
Temp Pulse Resp BP Pulse Ox
98.6 F 87 20 100/64 96
11/07/23 05:11 11/07/23 05:00 11/07/23 07:36 11/07/23 07:36 11/07/23 07:36
I&O
11/06/23 11/07/23 11/08/23
06:59 06:59 06:59
Output Total 600 / 600
Balance -600 / -600
[2023-11-07 10:55] LABS: Blood Urea Nitrogen 39 mg/dl (9-20); Calcium 9.5 mg/dl (8.4-10.2); Carbon Dioxide 31 mmol/L (22-30); Chloride 95 mmol/L (98-107); Estimated Creatinine Clearance 55 ml/min; Glucose 221 mg/dl (70-99); Potassium 4.7 mmol/L (3.5-5.1); Sodium 135 mmol/L (135-145); eGFR > 60.00
[2023-11-07 12:52] LABS: Glucose - Point of Care 141 mg/dl (70-99)
--- NOTE | 2023-11-07 13:46 | CHAP ---
Mr. Macias was in good spirits, smiling. He said his recovery will be a process, but he seemed encouraged. I assured him we're here for him.
[2023-11-07] MEDS: CRESTOR 20 MG PO (17:05)
[2023-11-07] MEDS: LOVENOX 40 MG SC (17:05)
[2023-11-07 17:06] LABS: Glucose - Point of Care 160 mg/dl (70-99)
[2023-11-07] MEDS: NOVOLOG FLEXPEN-MODERATE RESISTANCE 1 UNITS SC (17:06)
[2023-11-07] MEDS: STERILE WATER FOR INJECTION 10 ML IV (21:46)
[2023-11-07] MEDS: ROCEPHIN 1000 MG IV (21:46)
[2023-11-07] MEDS: GLUCOPHAGE XR EXTENDED RELEASE 500 MG PO (21:47)
[2023-11-08] VITALS (8 sets, daily range): BP systolic 90–118; BP diastolic 57–76; BMI 26.7
[2023-11-08 04:27] LABS: Hematocrit 36.3 % (39.0-52.0); Hemoglobin 12.5 g/dL (13.0-18.0); Mean Corp Hgb Conc. 34.4 g/dL (33.0-37.0); Mean Corpuscular Hgb 29.3 pg (27.0-31.0); Mean Platelet Volume 8.8 fL (7.4-10.4); Platelet Count 500 10^3/uL (130-400); Red Blood Cell Count 4.27 10^6/uL (4.70-6.10); Red Cell Dist. Width 12.4 % (11.5-14.5); White Blood Cell Count 7.2 10^3/uL (4.8-10.8)
[2023-11-08 05:00] LABS: Blood Urea Nitrogen 43 mg/dl (9-20); Calcium 9.4 mg/dl (8.4-10.2); Carbon Dioxide 28 mmol/L (22-30); Chloride 95 mmol/L (98-107); Estimated Creatinine Clearance 66 ml/min; Glucose 94 mg/dl (70-99); Potassium 4.1 mmol/L (3.5-5.1); Sodium 135 mmol/L (135-145); eGFR > 60.00
--- NOTE | 2023-11-08 07:37 | W.PN.CD ---
Today's Communication / Plan
-
jardiance 10mg daily
Impression / Plan
-
Assessment/Plan: 62M with late presentation of anterior RI
Anterior RI
- ASA/statin. GOAL LDL<55.
- Was on crestor 5 with LDL 85. Now on crestor 20. Will need lipids in 6-8wks with LFTs
- [facility] 4-12 showed severe CAD with occlusion of mid LAD and prox RCA.
- Stress tomorrow to today for ischemia
-IF there is significant anterior ischemiam favor LAD PCI (prox stenosis and mid occlusion)
ICM EF 30%
- Added ARB, SLGT2i and BB - BP limiting
- Was on Jardiance which was stopped due to high cost. He says after high deductible met it will only be $20/month so will resume
- Add MRA when BP supports
- continue diuresis but lower to po and check BMP
- Feels dramatically better after 9 lb diuresis. Now move to once daily furosemide/KCL
- repeat echo in 90 days to assess for ICD indication
Hx CVA:
-on ASA, statin
-patient with PFO, but declined closure (per OP notes)
DM2:
Dyslipidemia:
Possible PNA: On ABX per medicine
Dispo: Carlos MPI in AM to decide if revascularization is indicated
Subjective: No CP, palps, or dyspnea
TTE Aug 05: Severely reduced left ventricular systolic function. LV ejection fraction is 25-30% by visual assessment. There are regional wall motion abnormalities concerning for severe CAD (below). Mild mitral regurgitation. Color flow pattern
suggestive of PFO. Compared to prior study of Mar 2023, LV dysfunction is new.
[facility] Aug 06 (164 lbs.): RA 15, RV 57/17, PA 57/34, PCWP 30
[facility] Aug 06: LVEDP 34, CI 2.8, EF 25%. 70%pLAD and 100% mLAD, 90% third septal, 30 pLCx, 100% pRCA with right to left collateral
Laboratory Data
11/04/23 11/05/23
14:39 02:22
Hgb 11.4 L
Creatinine 0.9
Hemoglobin A1c 8.5 H
Troponin I 7.580 H* 6.000 H*
Triglycerides 130
Total Cholesterol 149
LDL Cholesterol, Calc 85
HDL Cholesterol 38
Generic Name Dose Route Start Last Admin
Trade Name Kari PRN Reason Stop Dose Admin
Heparin Sodium 25,000 units in 250 mls @ 0 mls/hr 11/04/23 15:00 11/04/23 14:57
Heparin 52539 Units/250 Ml IV 250 mls
PER PROTOCOL HAYDE
Protocol
Per Protocol
Rosuvastatin Calcium 20 mg 11/04/23 18:00 11/04/23 20:54
Rosuvastatin (Crestor) 20 Mg Tablet PO 12/02/23 17:59 20 mg
QPM HAYDE
Aspirin 81 mg 11/05/23 08:00 11/05/23 09:03
Aspirin 81 Mg Chewable Tablet PO 12/03/23 07:59 81 mg
DAILY HAYDE
Physical Exam
Vital Signs/Labs
Vital Signs
Temp Pulse Resp BP Pulse Ox
98.7 F 75 18 96/61 94
11/07/23 20:00 11/07/23 20:00 11/07/23 20:00 11/07/23 16:14 11/07/23 16:15
11/07/23 11/08/23 11/09/23
06:59 06:59 06:59
Actual Weight 158 lb 11.725 oz 155 lb 3.287 oz
11/08/23 04:09
11/08/23 04:09
PT 15.1 Sec (11.4-14.6) H 11/04/23 14:39
INR 1.18 11/04/23 14:39
APTT Cancelled 11/05/23 18:00
Magnesium 1.8 mg/dl (1.6-2.3) 11/05/23 02:22
Triglycerides 130 mg/dl (10-149) 11/05/23 02:22
LDL Cholesterol, Calc 85 mg/dl 11/05/23 02:22
VLDL Cholesterol, Calc 26 mg/dl (0-30) 11/05/23 02:22
HDL Cholesterol 38 mg/dl 11/05/23 02:22
11/04/23 11/04/23 11/04/23
14:39 16:24 20:00
Jhp-O-Nezaciqqrtg Pept 23579 Cancelled Cancelled
Physical Exam
Constitutional: No acute distress and Comfortable
EENT: Anicteric
Cardiovascular: Rhythm & rate is regular
Respiratory: Respiratory effort normal
GI: Soft and Non tender
Neuro/Psych: AO x 3 and Motor deficits absent
Data Reviewed
-
Date of Service: November 08, 2023
[2023-11-08] MEDS: LOW STRENGTH ASPIRIN 81 MG PO (07:48)
[2023-11-08] MEDS: NOVOLOG FLEXPEN-MODERATE RESISTANCE SC ×3 (07:54→19:23)
[2023-11-08 08:03] LABS: Glucose - Point of Care 101 mg/dl (70-99)
[2023-11-08] MEDS: LEXISCAN 0.400000000000000022 MG IV (10:13)
[2023-11-08] MEDS: LASIX 20 MG PO (12:15)
[2023-11-08] MEDS: GLUCOPHAGE XR EXTENDED RELEASE 500 MG PO (12:16)
[2023-11-08] MEDS: COZAAR 25 MG PO (12:17)
[2023-11-08] MEDS: KCL 20 MEQ PO (12:21)
[2023-11-08] MEDS: VIBRAMYCIN 100 MG PO ×2 (12:25→19:53)
[2023-11-08] MEDS: JARDIANCE 10 MG PO (12:26)
[2023-11-08 12:40] LABS: Glucose - Point of Care 135 mg/dl (70-99)
--- NOTE | 2023-11-08 12:47 | W.PN.HOSP.TC ---
Today's Communication/Plan
-
see bold, further plan depends on results of stress test
Assessment / Plan
Assessment / Plan
Gen: NAD, AAOx3.
Eyes: EOMI, PERRLA, no scleral icterus.
Neck: supple.
CV: RRR, +S1/S2, no m/r/g.
Resp: CTAB, no rales, wheezes, or rhonchi.
Abd: +BS, soft, NT, ND
Skin: No rashes.
Neuro: CN 2-12 intact, non-focal.
Psych: Normal mood and affect.
11/05/23 19:35 Blood/Venous Blood Culture - Preliminary
No Growth in 48 hours- Final report to follow
11/05/23 18:55 Blood/Venous Blood Culture - Preliminary
No Growth in 48 hours- Final report to follow
CT of the chest: No PE. Moderate bilateral upper and lower lobe central space disease concerning for pneumonia. CHF not excluded. Moderate bilateral pleural effusions right larger than left new. Mild bibasilar consolidation which may represent
pneumonia or atelectasis new.
Echo: EF 25-30% (new from mar 2023), RWMA concerning for severe CAD, mild MR
Cardiac cath 11/05/23:
1: Late presentation anterior infarction
2: Elevated filling pressures with moderate pulmonary hypertension
3. Distal anterolateral and apical akinesis with severe inferior hypokinesis with EF estimated at 25%
4. Mild mitral regurgitation
5. 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
6. At this time, medical therapy is recommended for his CAD; however, if there is evidence of significant provokable ischemia in the LAD distribution PCI of the proximal and mid LAD is a reasonable option. I see no role for CABG
7. Medication directed at his LV dysfunction and diuresis is recommended at this time. I will order a Lexiscan for Tuesday 11/07 to determine whether there is significant provokable ischemia in the LAD distribution
8. Continue dual antiplatelet therapy (post [place] indication)
Acute NSTEMI:
-trop peaked at 7.580
-echo and cath above
-stress test 11/08/23
-cont GDMT with ASA/statin/ARB/Farxiga/BB
-for Entresto at some point in future as per cards
Acute hypoxic respiratory insufficiency due to acute HFrEF:
-was on IV lasix, now transitioned to PO Lasix
-cont BB
-daily wts, I/Os, FR
-BMP today
B/L PNA:
-COVID NEG
-cont doxy/ceftriaxone
Other problems:
Hypervolemic hyponatremia, resolved with Lasix
DM2: a1c 8.5%. Cont Glipizide/Farxiga/SSI/Metformin/accuchecks/diabetic diet
Hyperlipidemia: continue statin
h/o PFO: declined closure in the past
h/o CVA 2022: cont ASA/Statin
h/o tobacco abuse disorder
FULL/Lovenox
Anticipated Discharge: Within 24 hours
Subjective/Interval History
-
Date of Service: November 08, 2023
Denies CP/SOB.
Objective Data
-
Labs:
Laboratory Results
11/08/23
04:09
WBC 7.2
Hgb 12.5 L
Hct 36.3 L
Plt Count 500 H D
Sodium 135
Potassium 4.1
Chloride 95 L
Carbon Dioxide 28
BUN 43 H
Creatinine 1.0
Glucose 94
Calcium 9.4
Vital Signs:
Vital Signs
Temp Pulse Resp BP Pulse Ox
98.1 F 84 16 96/58 98
11/08/23 12:00 11/08/23 08:30 11/08/23 12:00 11/08/23 07:41 11/08/23 12:00
--- NOTE | 2023-11-08 13:47 | CM ---
Reviewed chart. Mr. Macias was transferred to IVU. Met with and Mrs. Macias to review discharge plans. He states prior to admission he resdies with his spouse in a two story home with two steps to enter. He states his bedroom/full bathroom
are on the first floor. He states prior to admission he was independent with ambulation and adls. He states he does not have any DME in the home. He has a prescription plan. His Jardiance co-pay would be $609. a month until his deductible of
$6000.00 has been met. After he mets his deductible his co-pay would be $25.00 a month. The Entresto co-pay would be $686.01 then after his deductible has been met his co-pay would be $25.00 a month and 90 day supply would be $50.00 . Placed the
free and $10.00 coupon in his red discharge folder. Medical work-up in progress. The discharge plan is to return home with his spouse when medically stable.
--- NOTE | 2023-11-08 16:27 | W.PN.UPDATE ---
Update Note
Progress Note Update
billing
[2023-11-08] MEDS: CRESTOR 20 MG PO (17:35)
[2023-11-08] MEDS: GLUCOTROL PO (17:35)
[2023-11-08] MEDS: GLUCOTROL 5 MG PO (17:36)
[2023-11-08] MEDS: LOVENOX 40 MG SC (17:37)
[2023-11-08 18:14] LABS: Glucose - Point of Care 123 mg/dl (70-99)
[2023-11-08] MEDS: ROCEPHIN 1000 MG IV (19:52)
[2023-11-08] MEDS: STERILE WATER FOR INJECTION 10 ML IV (19:53)
--- NOTE | 2023-11-08 20:45 | PTCARENOTE ---
Pt without complaints at change of shift- at bedside- plan of care discussed- pt verbalized understanding. BP soft- 90s/50s. HR 80s-90s. Ambulating the room/halls as a self.
[2023-11-08 22:03] LABS: Glucose - Point of Care 76 mg/dl (70-99)
[2023-11-08] MEDS: GLUCOPHAGE XR EXTENDED RELEASE PO (22:05)
[2023-11-08] MEDS: TOPROL XL 25 MG PO (22:05)
[2023-11-09] VITALS (15 sets, daily range): BP systolic 82–101; BP diastolic 56–76; PULSE 68–72; BMI 26.5
[2023-11-09 07:18] LABS: Glucose - Point of Care 91 mg/dl (70-99)
[2023-11-09] MEDS: GLUCOTROL 5 MG PO ×2 (07:37→18:22)
[2023-11-09] MEDS: LOW STRENGTH ASPIRIN 81 MG PO (07:37)
[2023-11-09] MEDS: VIBRAMYCIN 100 MG PO ×2 (07:37→19:48)
[2023-11-09] MEDS: LASIX 20 MG PO (07:38)
[2023-11-09] MEDS: COZAAR 25 MG PO (07:38)
[2023-11-09] MEDS: KCL 20 MEQ PO (07:38)
[2023-11-09] MEDS: JARDIANCE 10 MG PO (07:48)
[2023-11-09] MEDS: NOVOLOG FLEXPEN-MODERATE RESISTANCE SC ×3 (09:06→18:25)
--- NOTE | 2023-11-09 09:07 | W.PN.HOSP.TC ---
Today's Communication/Plan
-
d/c
Assessment / Plan
Assessment / Plan
Gen: NAD, AAOx3.
Eyes: EOMI, PERRLA, no scleral icterus.
Neck: supple.
CV: remains RRR, +S1/S2, no m/r/g.
Resp: remains CTAB, no rales, wheezes, or rhonchi.
Abd: +BS, soft, NT, ND
Skin: No rashes.
Neuro: remains CN 2-12 intact, non-focal.
Psych: Normal mood and affect.
11/05/23 19:35 Blood/Venous Blood Culture - Preliminary
No Growth in 72 hours- Final report to follow
11/05/23 18:55 Blood/Venous Blood Culture - Preliminary
No Growth in 72 hours- Final report to follow
CT of the chest: No PE. Moderate bilateral upper and lower lobe central space disease concerning for pneumonia. CHF not excluded. Moderate bilateral pleural effusions right larger than left new. Mild bibasilar consolidation which may represent
pneumonia or atelectasis new.
CXR 11/08/23: Unremarkable exam
Echo: EF 25-30% (new from mar 2023), RWMA concerning for severe CAD, mild MR
Cardiac cath 11/05/23:
1: Late presentation anterior infarction
2: Elevated filling pressures with moderate pulmonary hypertension
3. Distal anterolateral and apical akinesis with severe inferior hypokinesis with EF estimated at 25%
4. Mild mitral regurgitation
5. 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
6. At this time, medical therapy is recommended for his CAD; however, if there is evidence of significant provokable ischemia in the LAD distribution PCI of the proximal and mid LAD is a reasonable option. I see no role for CABG
7. Medication directed at his LV dysfunction and diuresis is recommended at this time. I will order a Lexiscan for Tuesday 11/07 to determine whether there is significant provokable ischemia in the LAD distribution
8. Continue dual antiplatelet therapy (post [place] indication)
Acute NSTEMI:
-trop peaked at 7.580
-echo and cath above
-Nuclear stress test 11/08/23: Large perfusion defects consistent with prior infarct involving apical, anterior, inferior septal and distal anterolateral and distal inferolateral peck. Small degree of olena-infarct ischemia (distal inferolateral and
anterolateral peck).
-cont GDMT with ASA/statin/ARB/Farxiga/BB
-for Entresto at some point in future as per cards
Acute hypoxic respiratory insufficiency due to acute HFrEF:
-was on IV lasix, now transitioned to PO Lasix
-cont BB
-daily wts, I/Os, FR
-BMP today
Possible B/L PNA:
-CT scan and CXR above. In retrospect, acute HFrEF due to acute NSTEMI is more likely the diagnosis.
-COVID NEG
-afebrile, no leukocytosis, not hypoxemic
-cont doxy/ceftriaxone (today day 5, last day)
Other problems:
Hypervolemic hyponatremia, resolved with Lasix
DM2: a1c 8.5%. Cont Glipizide/Farxiga/SSI/Metformin/accuchecks/diabetic diet
Hyperlipidemia: continue statin
h/o PFO: declined closure in the past
h/o CVA 2022: cont ASA/Statin
h/o tobacco abuse disorder
FULL/Lovenox
Total time spent on d/c = 34 min. This included today's physical exam, progress note, review of laboratory and diagnostic data, preparation of discharge documents and prescriptions, and discussions about the pt's hospital course and discharge plan
with the patient and other biomedical scientist involved in the patient's care.
Anticipated Discharge: Today
Subjective/Interval History
-
Date of Service: November 09, 2023
Denies CP/SOB.
Objective Data
-
Vital Signs:
Vital Signs
Temp Pulse Resp BP Pulse Ox
98 F 78 16 95/67 98
11/09/23 07:08 11/09/23 08:00 11/09/23 07:08 11/09/23 07:10 11/09/23 08:00
I&O
11/08/23 11/09/23 11/10/23
06:59 06:59 06:59
Intake Total 480 / 480
Balance 480 / 480
[2023-11-09] MEDS: GLUCOPHAGE XR EXTENDED RELEASE 500 MG PO ×2 (09:11→22:12)
--- NOTE | 2023-11-09 09:16 | W.PN.UPDATE ---
Update Note
Progress Note Update
ara 11/09/23. Large perfusion defects consistent with prior infarct involving apical, anterior, inferior septal and distal anterolateral and distal inferolateral peck. Small degree of periinfarct ischmia ( distal inferolateral and
anteralateral peck). Full report to follow
--- NOTE | 2023-11-09 12:12 | W.PN.CD ---
Today's Communication / Plan
-
patient feels well. relatively low blood pressures.
ambulate and check orthostatics vitals . If continues to be without symptoms BP stable then can consider discharge
Impression / Plan
-
Assessment/Plan: 62M with late presentation of anterior KS
Anterior KS
- ASA/statin. GOAL LDL<55.
- Was on crestor 5 with LDL 85. Now on crestor 20. Will need lipids in 6-8wks with LFTs
- [facility] 4-12 showed severe CAD with occlusion of mid LAD and prox RCA.
- stress with large areas of infarct and small periinfarct ischemia. Plan for continued medical therapy
-
ICM EF 30%
- Added ARB, SLGT2i and BB - BP limiting
- Was on Jardiance which was stopped due to high cost. He says after high deductible met it will only be $20/month so will resume
- Feels dramatically better after 9 lb diuresis. Now move to once daily furosemide/KCL
- repeat echo in 90 days to assess for ICD indication
Hx CVA:
-on ASA, statin
-patient with PFO, but declined closure (per OP notes)
DM2:
Dyslipidemia:
Possible PNA: On ABX per medicine
Dispo: Carlos MPI in AM to decide if revascularization is indicated
Subjective: No CP, palps, or dyspnea
TTE Aug 05: Severely reduced left ventricular systolic function. LV ejection fraction is 25-30% by visual assessment. There are regional wall motion abnormalities concerning for severe CAD (below). Mild mitral regurgitation. Color flow pattern
suggestive of PFO. Compared to prior study of Mar 2023, LV dysfunction is new.
[facility] Aug 06 (164 lbs.): RA 15, RV 57/17, PA 57/34, PCWP 30
[facility] Aug 06: LVEDP 34, CI 2.8, EF 25%. 70%pLAD and 100% mLAD, 90% third septal, 30 pLCx, 100% pRCA with right to left collateral
Laboratory Data
11/04/23 11/05/23
14:39 02:22
Hgb 11.4 L
Creatinine 0.9
Hemoglobin A1c 8.5 H
Troponin I 7.580 H* 6.000 H*
Triglycerides 130
Total Cholesterol 149
LDL Cholesterol, Calc 85
HDL Cholesterol 38
Generic Name Dose Route Start Last Admin
Trade Name Kari PRN Reason Stop Dose Admin
Heparin Sodium 25,000 units in 250 mls @ 0 mls/hr 11/04/23 15:00 11/04/23 14:57
Heparin 32632 Units/250 Ml IV 250 mls
PER PROTOCOL HAYDE
Protocol
Per Protocol
Rosuvastatin Calcium 20 mg 11/04/23 18:00 11/04/23 20:54
Rosuvastatin (Crestor) 20 Mg Tablet PO 12/02/23 17:59 20 mg
QPM HAYDE
Aspirin 81 mg 11/05/23 08:00 11/05/23 09:03
Aspirin 81 Mg Chewable Tablet PO 12/03/23 07:59 81 mg
DAILY HAYDE
Physical Exam
Vital Signs/Labs
Vital Signs
Temp Pulse Resp BP Pulse Ox
98.4 F 77 16 95/67 99
11/09/23 11:19 11/09/23 11:19 11/09/23 11:19 11/09/23 07:10 11/09/23 11:19
11/08/23 11/09/23 11/10/23
06:59 06:59 06:59
Actual Weight 70.4 kg 70 kg
11/08/23 04:09
11/08/23 04:09
PT 15.1 Sec (11.4-14.6) H 11/04/23 14:39
INR 1.18 11/04/23 14:39
APTT Cancelled 11/05/23 18:00
Magnesium 1.8 mg/dl (1.6-2.3) 11/05/23 02:22
Triglycerides 130 mg/dl (10-149) 11/05/23 02:22
LDL Cholesterol, Calc 85 mg/dl 11/05/23 02:22
VLDL Cholesterol, Calc 26 mg/dl (0-30) 11/05/23 02:22
HDL Cholesterol 38 mg/dl 11/05/23 02:22
11/04/23 11/04/23 11/04/23
14:39 16:24 20:00
Psx-F-Siyjkulpdko Pept [id number] Cancelled Cancelled
Physical Exam
Constitutional: No acute distress
Cardiovascular: Rhythm & rate is regular
Respiratory: Respiratory effort normal
GI: Soft
Data Reviewed
-
Date of Service: November 09, 2023
Medical Decision Making: Reviewed Test Results
X-Ray/CT/US/MRI/NUC/PET: Report Reviewed by me
Medical Tests (PFT, Pathology etc): Report Reviewed by me
Labs: Labs Reviewed by me
[2023-11-09 12:17] LABS: Glucose - Point of Care 139 mg/dl (70-99)
[2023-11-09] MEDS: ROCEPHIN 1000 MG IV (12:27)
[2023-11-09] MEDS: STERILE WATER FOR INJECTION 10 ML IV (12:27)
--- NOTE | 2023-11-09 16:03 | W.PN.UPDATE ---
Update Note
Progress Note Update
billing
[2023-11-09 18:06] LABS: Glucose - Point of Care 110 mg/dl (70-99)
--- NOTE | 2023-11-09 18:13 | PTCARENOTE ---
Pt with no c/o today. Ambulating in the hallway with his . Blood pressures in the mid 80's systolic starting around 11:20. Pt asymptomatic. Md aware. Losartan dose decreased for tomorrow's dose. Bp 97/59 at this time.
[2023-11-09] MEDS: LOVENOX 40 MG SC (18:22)
[2023-11-09] MEDS: CRESTOR 20 MG PO (18:22)
[2023-11-09 21:46] LABS: Glucose - Point of Care 132 mg/dl (70-99)
[2023-11-09] MEDS: TOPROL XL PO ×2 (22:47→22:50)
[2023-11-10 04:29] VITALS: BP 103/65
--- NOTE | 2023-11-10 05:09 | DOWNTIME ---
There was a [employer] Client Job Coach/Job Developer Downtime on 11/10/2023 from 0100 to 11/10/2023 at 0439. Downtime documentation of patient's care, including medication administrations, has been reconciled in the electronic record per guidelines. Refer to the
patient's paper chart under the miscellaneous tab to see printed paper medication records and downtime forms.
[2023-11-10 05:27] VITALS: BMI 26.7
--- NOTE | 2023-11-10 05:28 | PTCARENOTE ---
Patient ambulating self in room. Denies any dizziness or lightheadedness. Tele remains SR. Patient due for Toprol XL 25mg at 22:00, BP 91/58. Dr. Moulton made aware, and instructed RN to hold HS dose.Denies any chest pain or discomfort. Call
belll in reach.
--- NOTE | 2023-11-10 05:28 | DOWNTIME ---
There was a [employer] Client Medicaid Billing Clerk Downtime on 11/10/2023 from 0100 to 11/10/2023 at 0439. Downtime documentation of patient's care, including medication administrations, has been reconciled in the electronic record per guidelines. Refer to the
patient's paper chart under the miscellaneous tab to see printed paper medication records and downtime forms.
[2023-11-10 07:28] VITALS: BP 100/62
[2023-11-10 07:35] LABS: Glucose - Point of Care 90 mg/dl (70-99)
[2023-11-10] MEDS: GLUCOTROL 5 MG PO (07:55)
[2023-11-10] MEDS: GLUCOPHAGE XR EXTENDED RELEASE 500 MG PO (07:55)
[2023-11-10] MEDS: LOW STRENGTH ASPIRIN 81 MG PO (07:55)
[2023-11-10] MEDS: VIBRAMYCIN 100 MG PO (07:56)
[2023-11-10] MEDS: COZAAR 12.5 MG PO (07:56)
[2023-11-10] MEDS: KCL 20 MEQ PO (07:59)
[2023-11-10] MEDS: JARDIANCE 10 MG PO (08:00)
[2023-11-10] MEDS: NOVOLOG FLEXPEN-MODERATE RESISTANCE SC ×2 (08:01→12:32)
--- NOTE | 2023-11-10 09:55 | W.PN.HOSP.TC ---
Addendum entered and electronically signed by Yoan Baxter MD 11/10/23 13:30:
Total time spent on d/c = 33 min. This included today's physical exam, progress note, review of laboratory and diagnostic data, preparation of discharge documents and prescriptions, and discussions about the pt's hospital course and discharge plan
with the patient and other medical center manager involved in the patient's care.
Original Note:
Today's Communication/Plan
-
possible d/c later today
Assessment / Plan
Assessment / Plan
Gen: NAD, AAOx3.
Eyes: EOMI, PERRLA, no scleral icterus.
Neck: supple.
CV: continues to remain RRR, +S1/S2, no m/r/g.
Resp: continues to remain CTAB, no rales, wheezes, or rhonchi.
Abd: +BS, soft, NT, ND
Skin: No rashes.
Neuro: continues to remain CN 2-12 intact, non-focal.
Psych: Normal mood and affect.
11/08/23 17:17 Nose MRSA Screen - Final
No Methicillin Resistant Staphylococcus aureus isolated.
11/05/23 19:35 Blood/Venous Blood Culture - Preliminary
No Growth in 4 days- Final report to follow
11/05/23 18:55 Blood/Venous Blood Culture - Preliminary
No Growth in 4 days- Final report to follow
CT of the chest: No PE. Moderate bilateral upper and lower lobe central space disease concerning for pneumonia. CHF not excluded. Moderate bilateral pleural effusions right larger than left new. Mild bibasilar consolidation which may represent
pneumonia or atelectasis new.
CXR 11/08/23: Unremarkable exam
Echo: EF 25-30% (new from mar 2023), RWMA concerning for severe CAD, mild MR
Cardiac cath 11/05/23:
1: Late presentation anterior infarction
2: Elevated filling pressures with moderate pulmonary hypertension
3. Distal anterolateral and apical akinesis with severe inferior hypokinesis with EF estimated at 25%
4. Mild mitral regurgitation
5. 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
6. At this time, medical therapy is recommended for his CAD; however, if there is evidence of significant provokable ischemia in the LAD distribution PCI of the proximal and mid LAD is a reasonable option. I see no role for CABG
7. Medication directed at his LV dysfunction and diuresis is recommended at this time. I will order a Lexiscan for Tuesday 11/07 to determine whether there is significant provokable ischemia in the LAD distribution
8. Continue dual antiplatelet therapy (post [place] indication)
Acute NSTEMI:
-trop peaked at 7.580
-echo and cath above
-Nuclear stress test 11/08/23: Large perfusion defects consistent with prior infarct involving apical, anterior, inferior septal and distal anterolateral and distal inferolateral peck. Small degree of olena-infarct ischemia (distal inferolateral and
anterolateral peck).
-cont GDMT with ASA/statin/ARB (decreased dose for hypotension)/Farxiga/BB (if BP can tolerate)
-for Entresto at some point in future as per cards (currently limited by hypotension)
Acute hypoxic respiratory insufficiency due to acute HFrEF:
-was on IV lasix, then transitioned to PO Lasix which is now on hold due to hypotension
-cont BB with holding parameters (note, not given 11/09/23 due to hypotension)
-daily wts, I/Os, FR
Possible B/L PNA:
-CT scan and CXR above. In retrospect, acute HFrEF due to acute NSTEMI is more likely the diagnosis.
-COVID NEG
-afebrile, no leukocytosis, not hypoxemic
-completed a course of doxy/ceftriaxone
Other problems:
Hypervolemic hyponatremia, resolved with Lasix
DM2: a1c 8.5%. Cont Glipizide/Farxiga/SSI/Metformin/accuchecks/diabetic diet
Hyperlipidemia: continue statin
h/o PFO: declined closure in the past
h/o CVA 2022: cont ASA/Statin
h/o tobacco abuse disorder
FULL/Lovenox
Anticipated Discharge: Within 24 hours
Subjective/Interval History
-
Date of Service: November 10, 2023
Denies CP/SOB.
Objective Data
-
Vital Signs:
Vital Signs
Temp Pulse Resp BP Pulse Ox
98.3 F 83 18 103/65 99
11/10/23 07:00 11/10/23 05:00 11/10/23 07:00 11/10/23 04:29 11/10/23 07:00
I&O
11/09/23 11/10/23 11/11/23
06:59 06:59 06:59
Intake Total 480 / 480 480 / 480
Balance 480 / 480 480 / 480
--- NOTE | 2023-11-10 10:34 | CM ---
Reviewed chart. Met with and Mrs. Macias to review discharge plans. He states he is feeling well and maybe able to go home soon. Prior to admission he resides with his spouse in a two story home with two steps to enter. He bedroom/full
bathroom are on the first floor. Prior to admission he was independent with ambulation and adls. He does not have any DME in the home. He has a prescription plan. Medical work-up in progress. The discharge plan is to return home with his spouse
when medically stable.
--- NOTE | 2023-11-10 11:16 | W.PN.CD ---
Today's Communication / Plan
-
- no cardiac contraindication to discharge
- MEDS: rosuvastatin 20 po qd (new dose), ASA 81 po qd, Jardiance 10 po qd, Toprol XL 25 HS, Lasix 20 po qd, Kcl 20 meq qd, losartan 12.5 po qd
- Labs: BMP in 7-10 days
- Follow up: Rosalinda Grigsby Nov 17 at 1:40
Impression / Plan
-
Assessment/Plan: 62M with late presentation of anterior OK.
Anterior OK
- ASA/statin. GOAL LDL<55.
- Was on crestor 5 with LDL 85. Now on crestor 20. Will need lipids in 6-8wks with LFTs
- LHC 4-12 showed severe CAD with occlusion of mid LAD and prox RCA.
- stress with large areas of infarct and small periinfarct ischemia. Plan for continued medical therapy
ICM EF 30%
- Added ARB, SLGT2i and BB - BP limiting
- Was on Jardiance which was stopped due to high cost. He says after high deductible met it will only be $20/month so will resume
- Feels dramatically better after 9 lb diuresis. Now move to once daily furosemide/KCL
- repeat echo in 90 days to assess for ICD indication
Hx CVA:
-on ASA, statin
-patient with PFO, but declined closure (per OP notes)
DM2:
Dyslipidemia:
Possible PNA: On ABX per medicine
Dispo:
- no cardiac contraindication to discharge
- MEDS: rosuvastatin 20 po qd (new dose), ASA 81 po qd, Jardiance 10 po qd, Toprol XL 25 HS, Lasix 20 po qd, Kcl 20 meq qd, losartan 12.5 po qd
- Labs: BMP in 7-10 days
- Follow up: Rosalinda Grigsby Nov 17 at 1:40
Subjective: No CP, palps, or dyspnea
TTE Aug 05: Severely reduced left ventricular systolic function. LV ejection fraction is 25-30% by visual assessment. There are regional wall motion abnormalities concerning for severe CAD (below). Mild mitral regurgitation. Color flow pattern
suggestive of PFO. Compared to prior study of Mar 2023, LV dysfunction is new.
[facility] Aug 06 (164 lbs.): RA 15, RV 57/17, PA 57/34, PCWP 30
[facility] Aug 06: LVEDP 34, CI 2.8, EF 25%. 70%pLAD and 100% mLAD, 90% third septal, 30 pLCx, 100% pRCA with right to left collateral
Physical Exam
Vital Signs/Labs
Vital Signs
Temp Pulse Resp BP Pulse Ox
36.8 C 85 18 100/62 99
11/10/23 07:00 11/10/23 08:00 11/10/23 07:00 11/10/23 07:28 11/10/23 07:28
11/09/23 11/10/23 11/11/23
06:59 06:59 06:59
Actual Weight 154 lb 5.177 oz 155 lb 10.342 oz
11/08/23 04:09
PT 15.1 Sec (11.4-14.6) H 11/04/23 14:39
INR 1.18 11/04/23 14:39
APTT Cancelled 11/05/23 18:00
Magnesium 1.8 mg/dl (1.6-2.3) 11/05/23 02:22
Triglycerides 130 mg/dl (10-149) 11/05/23 02:22
LDL Cholesterol, Calc 85 mg/dl 11/05/23 02:22
VLDL Cholesterol, Calc 26 mg/dl (0-30) 11/05/23 02:22
HDL Cholesterol 38 mg/dl 11/05/23 02:22
11/04/23 11/04/23 11/04/23
14:39 16:24 20:00
[facility] Pept [id number] Cancelled Cancelled
Physical Exam
Constitutional: No acute distress
EENT: Anicteric and Moist mucous membranes
Cardiovascular: Rhythm & rate is regular, Pedal edema is absent, Systolic murmur absent and Diastolic murmur absent
Respiratory: Respiratory effort normal
GI: Soft, Distention absent and Normal bowel sounds
Neuro/Psych: Alert
Data Reviewed
-
Date of Service: November 10, 2023
[2023-11-10 12:32] LABS: Glucose - Point of Care 84 mg/dl (70-99)
[2023-11-10 13:14] VITALS: BP 99/67
--- NOTE | 2023-11-10 13:30 | W.DCSUMMARY ---
Discharge Summary
Discharge Data
Date of Admission: 11/04/23
Date of Discharge: 11/10/23
-
Pending Results: No
Hospital Course
Primary diagnoses:
Acute non-ST elevation myocardial infarction
Acute hypoxic respiratory failure due to acute heart failure with reduced ejection fraction
Possible bilateral pneumonia
Secondary diagnoses:
Hypervolemic hyponatremia
Type 2 diabetes mellitus
Hyperlipidemia
h/o patent foramen ovale (declined closure in the past)
h/o cerebrovascular accident 2022
h/o tobacco abuse disorder
Consultants:
Cardiology
Imaging/Studies:
CT of the chest: No PE. Moderate bilateral upper and lower lobe central space disease concerning for pneumonia. CHF not excluded. Moderate bilateral pleural effusions right larger than left new. Mild bibasilar consolidation which may represent
pneumonia or atelectasis new.
CXR 11/08/23: Unremarkable exam
Echo: EF 25-30% (new from mar 2023), RWMA concerning for severe CAD, mild MR
Cardiac cath 11/05/23:
1: Late presentation anterior infarction
2: Elevated filling pressures with moderate pulmonary hypertension
3. Distal anterolateral and apical akinesis with severe inferior hypokinesis with EF estimated at 25%
4. Mild mitral regurgitation
5. 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
6. At this time, medical therapy is recommended for his CAD; however, if there is evidence of significant provokable ischemia in the LAD distribution PCI of the proximal and mid LAD is a reasonable option. I see no role for CABG
7. Medication directed at his LV dysfunction and diuresis is recommended at this time. I will order a Lexiscan for Tuesday 11/07 to determine whether there is significant provokable ischemia in the LAD distribution
8. Continue dual antiplatelet therapy (post VT indication)
Nuclear stress test 11/08/23: Large perfusion defects consistent with prior infarct involving apical, anterior, inferior septal and distal anterolateral and distal inferolateral peck. Small degree of olena-infarct ischemia (distal inferolateral and
anterolateral peck).
62-year-old male who presented with chief complaints of chest pain and shortness of breath as outlined in the H&P done on admission. Hospital course per problem list:
Acute NSTEMI: The patient's troponin peaked at 7.580. Echocardiogram and cardiac catheterization above. Based on the results of the studies the patient underwent a nuclear stress test on 11/08/23which showed large perfusion defects consistent with
prior infarct involving apical, anterior, inferior septal and distal anterolateral and distal inferolateral peck. Small degree of olena-infarct ischemia (distal inferolateral and anterolateral peck). Patient did not receive coronary stenting. He
was placed on goal-directed medical therapy that was adjusted based on his blood pressure and heart rate. Hopefully at some point in the future he can be placed on Entresto should his hypotension improved.
Acute hypoxic respiratory failure due to acute HFrEF: Patient was diuresed with IV Lasix and then transition to oral Lasix. Patient required up to 6L NC O2 and was weaned to room air prior to discharge. He was placed on beta-blaine.
Possible B/L PNA: CT chest and CXR above. The patient's COVID testing was negative. Patient was afebrile and did not have leukocytosis. His hypoxemia resolved with diuresis. He completed a course of doxycycline and Rocephin. In retrospect, acute
HFrEF due to acute NSTEMI was more likely the diagnosis.
Discharge Plan
-
Patient Disposition: Home (Routine Discharge)
Discharge Diagnosis/Procedures: Acute non-ST elevation myocardial infarction, cardiac catherization, acute hypoxemic respiratory insufficiency due to acute heart failure with reduced ejection fraction
Condition: Good
Diet: Low Cholesterol, 2 Gram Sodium and Diabetic, Carb Controlled
Activity: As tolerated
Driving Restrictions: No driving for 24 hours
Bathing Restrictions: None
Specialty Instructions: Weigh Daily- Call MD for wt gain/loss 3 lbs overnight/5 lbs in 1 week
Stand Alone Forms: DC Instructions- Cath/EP Lab
Referrals:
Tomy Wells DO [Active] - 12/02/23 3:20 pm
Alexandre De La Torre MD [Family Provider] - in less than 1 week
Prescriptions:
New
losartan 25 mg Tablet
12.5 mg PO DAILY Qty: 15 2RF
rosuvastatin 20 mg Tablet
20 mg PO QPM Qty: 90 0RF
Jardiance 10 mg Tablet
10 mg PO DAILY Qty: 30 2RF
furosemide 20 mg Tablet
20 mg PO DAILY Qty: 90 0RF
potassium chloride 20 mEq Tablet,Er Particles/Crystals
20 meq PO DAILY Qty: 30 0RF
metoprolol succinate [Toprol XL] 25 mg tablet extended release 24 hr
25 mg PO HS Qty: 30 0RF
Continued
metformin 500 mg Tablet Extended Release 24 Hr
500 mg PO BID Qty: 60 0RF
glipizide 5 mg Tablet
5 mg PO BID Qty: 60 0RF
aspirin 81 mg Tablet,Delayed Release (Dr/Ec)
81 mg PO DAILY
Discontinued
rosuvastatin 5 mg Tablet
5 mg PO DAILY
Discharge Orders:
Discharge Patient (As Directed); Ordered 11/10/23
Ordered By: Yoan Baxter
Discharge Date and Time
Print Language: WELSH
[2023-11-10 15:40] LABS: Blood Urea Nitrogen 32 mg/dl (9-20); Calcium 9.7 mg/dl (8.4-10.2); Carbon Dioxide 29 mmol/L (22-30); Chloride 99 mmol/L (98-107); Estimated Creatinine Clearance 66 ml/min; Glucose 90 mg/dl (70-99); Potassium 5.1 mmol/L (3.5-5.1); Sodium 135 mmol/L (135-145); eGFR > 60.00
--- NOTE | 2023-11-10 16:02 | PTCARENOTE ---
Pt with no c/o today. Blood pressure stable at 100/62. Ambulating in the hallway with his . Denies any pain, sob or lightheadedness. Pt discharged to home with his . Discharge instructions given and reviewed with good understanding.
--- NOTE | 2023-11-10 16:23 | PTCARENOTE ---
Pt received this am on 6L midflow 02. Decreased to 2L by 1500. Stats 94 - 96%. Pt still having incisional pain, relief with toradol. Pt OOB in the room, gait steady.
== END 2023-11-10 16:59 | disposition home or self-care (01) | DRG 280 ==
LOC: IVU 16:54
PROVIDERS: Hospitalist; Internal Medicine Cardiovascular Disease; Nurse Practitioner; ADMITTING PHYSICIAN Internal Medicine; ATTENDING PHYSICIAN Internal Medicine; EMERGENCY PHYSICIAN Student in an Organized Health Care Education/Training Program; FAMILY PHYSICIAN Family Medicine
PROC: B2111ZZ Fluoroscopy of Multiple Coronary Arteries using Low Osmolar Contrast (ICD-10-PCS; 2023-11-05)
PROC: B2151ZZ Fluoroscopy of Left Heart using Low Osmolar Contrast (ICD-10-PCS; 2023-11-05)
PROC: 4A023N7 Measurement of Cardiac Sampling and Pressure, Left Heart, Percutaneous Approach (ICD-10-PCS; 2023-11-05)
DX: I21.4 Non-ST elevation (NSTEMI) myocardial infarction (principal); I50.21 Acute systolic (congestive) heart failure; J18.9 Pneumonia, unspecified organism; E87.1 Hypo-osmolality and hyponatremia; E11.65 Type 2 diabetes mellitus with hyperglycemia; E78.5 Hyperlipidemia, unspecified; I34.0 Nonrheumatic mitral (valve) insufficiency; I27.20 Pulmonary hypertension, unspecified; I25.110 Atherosclerotic heart disease of native coronary artery with unstable angina pectoris; Z79.02 Long term (current) use of antithrombotics/antiplatelets
CPT/HCPCS: 71045; 71046; 71275; 78452; 80048; 80053; 80061; 82533; 82550; 82553; 82962; 83036; 83735; 83880; 83930; 83935; 84300; 84484; 85025; 85027; 85610; 85730; 87040; 87070; 87811; 93005; 93017; 93306; 93460; 96374; 96375; 99291; A9500; C1894; J2785; Q9967

== ENCOUNTER 2023-11-16 18:21 | Inpatient (IN) | payer BC, SELFPAY ==
[2023-11-16] VITALS (12 sets, daily range): BP systolic 97–135; BP diastolic 58–81; BMI 28.0; BMI 27.3
[2023-11-16 17:02] LABS: % Basophils 0.5 % (0-2); % Eosinophils 1.3 % (0-6); % Immature Granulocytes 0.2 % (0-0.5); % Lymphocytes 33.5 % (20.5-51.1); % Monocytes 6.3 % (1.7-9.3); % Neutrophils 58.2 % (42.2-75.2); Absolute Eosinophils 0.1 10^3/uL (0-0.7); Absolute Lymphocytes 2.9 10^3/uL (1.2-3.4); Absolute Monocytes 0.5 10^3/uL (0.1-0.6); Hematocrit 36.7 % (39.0-52.0); Hemoglobin 12.3 g/dL (13.0-18.0); Mean Corp Hgb Conc. 33.5 g/dL (33.0-37.0); Mean Corpuscular Hgb 29.2 pg (27.0-31.0); Mean Corpuscular Volume 87.2 fL (80.0-94.0); Nucleated Red Blood Cells % 0 % (-); Platelet Count 523 10^3/uL (130-400); Red Blood Cell Count 4.21 10^6/uL (4.70-6.10); Red Cell Dist. Width 12.7 % (11.5-14.5); White Blood Cell Count 8.6 10^3/uL (4.8-10.8)
--- NOTE | 2023-11-16 17:14 | ED.GENMED ---
History of Present Illness
General
Chief Complaint: Fainting/Passed Out
Time Seen by Provider: 11/16/23 16:41
Travel History
Have you had any contact with someone who has COVID-19?: No
Do you have any symptoms of coronavirus? Fever > 100 degrees, chills, cough, shortness of breath, sore throat, loss of taste or smell, muscle aches, or headache?: No
History of Present Illness
History of Present Illness:
62-year-old male with history of coronary artery disease and bxq-[id number]-hrjoocbmb diabetes presents to the emergency department for evaluation of a witnessed unprovoked syncopal event. He was apparently sitting in a chair at a computer when he
suddenly began to feel dizzy and lightheaded. According to his spouse he slumped backward and displayed myoclonic jerking of the arms. He awoke within 1 minute and was profoundly diaphoretic, no reported confusion or urinary incontinence. He was
recently discharged from this hospital after myocardial infarction, noted to have a late/delayed presentation of anterior DE, underwent cardiac catheterization on November 04 which showed LAD disease but no PCI was undertaken due to the delayed
presentation. EF was noted to be 25% at that time. He currently denies any chest pain or shortness of breath
Past History
Past History
ED Past Medical History: CVA and NIDDM
Social History
Tobacco: Smoker
Alcohol: None
Review of Systems
Review of Systems
Allergies reviewed?: Yes
All Other Systems: ROS reviewed and negative except as documented in HPI and ROS
Phy Exam
Physical Exam
Physical Exam:
GEN: Well appearing, NAD, WDWN
Eyes: PERRLA, EOMs intact, no scleral icterus
HENT: NCAT, oral mucosa moist, no JVD, no cervical adenopathy.
Lungs: CTAB, no wheezes, rales, rhonchi, normal chest wall excursion
Cardiac: RRR, no M/R/G, no peripheral edema. Radial pulses 2+ bilat
Abdomen: S, NT, ND, NABS, no masses or hepatosplenomegaly
Neuro: AO x 3, no focal deficits to BUE/BLE, normal sensation throughout
MSK: No gross deformity or ecchymosis. No edema. No digital clubbing
Skin: No rashes, petechiae. Normal color, no pallor or jaundice.
Psych: Calm, cooperative, proper hygiene
Course
Orders/Labs/Results
Orders:
Orders
11/16/23 Breakfast
Cholesterol Lowering
At Your Request: Full Participation
Cholesterol Lowering: Sodium, 2 Gram
11/16/23 16:39
Electrocardiogram (*1) Urgent
Reason for Study: Syncope
EKG- Treatment ONCE
11/16/23 16:49
Complete Blood Count/With Diff Urgent
Comprehensive Metabolic Panel Urgent
Magnesium Urgent
Comment: ADD ON
Troponin I Urgent
11/16/23 17:10
Add On- LAB Urgent
Tests Added?: magnesium
11/16/23 18:02
Admit/Transfer Patient As Directed
Co-Sign Provider:
Level of Care: Inpatient admission
Assign to:: Telemetry
Physician / Group: jose
Diagnosis: syncope
Reason for Telemetry: Syncope
Date to Stop Telemetry: 11/18/23
Time to Stop Telemetry: 11:00
Reason for Hospitalization: syncope
Expected length of stay greater than two midnights?: Yes
ELOS- Estimated Length of Stay in days: 3
I certify the patient meets the requirements for IP care: Yes
11/16/23 18:04
Code Status As Directed
Resuscitation Status: Full Code
11/16/23 20:22
Acetaminophen [Tylenol] 650 mg PO Q4HPRN PRN
Bisacodyl [Dulcolax] 10 mg RECTAL [id number] PRN
Dextrose 50%-Water [Dextrose 50% Syringe] 12.5 grams IV [id number] PRN
Docusate W/Senna [Senokot-S] 1 tablet PO BIDPRN PRN
Glucagon [GlucaGen] 1 mg IM PRN PRN
Heparin 5,000 units SC Q12
Polyethylene Glycol Powder [Miralax] 17 grams PO DAILYPRN PRN
Potassium Chloride [KCl] 10 meq PO BID
11/16/23 20:22
CARDIOLOGY CONSULT Routine
Consulting Provider: Freddie Valerio
Was physician already notified: Yes
Activity As Directed
Activity Level: As Tolerated
Bedside Glucose Monitoring As Directed
Frequency: AC&HS
Additional Instructions:: Change to q6h if pt on TPN, tube feeding or not eating
Neurological Checks As Directed
Frequency: Per unit guidelines
Orthostatic Vital Signs As Directed
Orthostatic VS Frequency: BID
Vital Signs As Directed
Frequency: Per unit guidelines
DX Deep Vein Thrombosis Video Routine
11/16/23 22:00
Metoprolol Xl [Toprol Xl] 25 mg PO HS
11/17/23 01:00
Troponin I Q6H
11/17/23 06:00
EKG [Electrocardiogram (*1)] IN AM
Reason for Study: Chest Pain
NPO
Allow oral meds: Yes
Allow clear liquids: No
NPO for procedure after (time): 11/16/23 2820
Basic Metabolic Panel IN AM
Complete Blood Count/No Diff IN AM
Magnesium IN AM
TSH Reflex To Free T4 IN AM
11/17/23 07:00
Troponin I Q6H
11/17/23 07:30
Insulin Aspart Corrective Low [Novolog Flexpen-Low Resistance] See Protocol SC AC
11/17/23 08:00
Aspirin Low Dose EC [Aspir Low (Enteric Coated)] 81 mg PO DAILY
Losartan [Cozaar] 12.5 mg PO DAILY
Rosuvastatin Calcium [Crestor] 20 mg PO DAILY
11/18/23 06:00
Basic Metabolic Panel IN AM
Complete Blood Count/No Diff IN AM
11/18/23 11:00
DC Protocol for Telemetry ONCE
11/19/23 06:00
Basic Metabolic Panel IN AM
Complete Blood Count/No Diff IN AM
11/20/23 06:00
Basic Metabolic Panel IN AM
Complete Blood Count/No Diff IN AM
11/21/23 06:00
Basic Metabolic Panel IN AM
Complete Blood Count/No Diff IN AM
Abnormal Lab Results
11/16/23
16:49
RBC 4.21 L 10^6/uL
(4.70-6.10)
Hgb 12.3 L g/dL
(13.0-18.0)
Hct 36.7 L %
(39.0-52.0)
Plt Count 523 H 10^3/uL
(130-400)
Sodium 134 L mmol/L
(135-145)
BUN 31 H mg/dl
(9-20)
Glucose 121 H mg/dl
(70-99)
Troponin I 0.088 H* ng/ml
11/16/23 16:49
11/16/23 16:49
Vital Signs
Initial and Last Documented VS:
Initial Vital Signs
BP
129/79
11/16/23 16:35
Last Documented Vital Signs
Temp Pulse Resp BP Pulse Ox
97.8 F 90 17 100/62 99
11/16/23 16:40 11/16/23 22:00 11/16/23 22:00 11/16/23 22:00 11/16/23 21:05
MDM/Problems Addressed
MDM/Problems Addressed:
EKG independently interpreted by me shows normal sinus rhythm at a rate of 89, inferior lateral ST depressions as well as anterior T wave inversions are comparable to prior, there is frequent ventricular ectopy
62-year-old male presents with an unprovoked syncopal event. This is highly concerning for a ventricular dysrhythmia in the immediate aftermath of a coronary obstruction/lesion and severely reduced ejection fraction. Discussed the case with
cardiology, will admit to the hospitalist service for further telemetry and close monitoring
*Critical Care Note
Total Time (30-74mins, 75-104mins- exclusive of procedures): Not Applicable
ED Attending Note
-
Portions of this chart may have been created with voice recognition software.� Occasional wrong word or��sound alike� substitutions may have occurred due to the inherent limitations of voice recognition software.
Discharge Plan
Departure
Patient Disposition: Admit
Date of Disposition: 11/16/23
Time of Disposition: 17:49
Admit to: IVU
Presentation/result/management discussed w/ accepting MD/DO: Hospitalist
Discharge Problem:
Syncope
Interventions
Interventions:
*Risk Screen - Suicide Last Done: 11/16/23 16:40
*General Assessment Last Done: 11/16/23 16:40
*Neglect/Abuse Screening Last Done: 11/16/23 16:40
ED- Fall Risk Assessment Last Done: 11/16/23 17:59
*ED COVID-19 Vaccine History Last Done: 11/16/23 16:40
*Nursing Disposition Last Done: 11/16/23 20:57
ED- Cardiac Assessment Last Done: 11/16/23 17:59
ED- Neurological Assessment Last Done: 11/16/23 17:59
[2023-11-16 17:18] LABS: ALT (SGPT) 23 U/L (0-50); AST (SGOT) 24 U/L (17-59); Albumin 4.3 g/dl (3.5-5.0); Alkaline Phosphatase 69 U/L (38-126); Blood Urea Nitrogen 31 mg/dl (9-20); Calcium 9.8 mg/dl (8.4-10.2); Carbon Dioxide 27 mmol/L (22-30); Chloride 100 mmol/L (98-107); Estimated Creatinine Clearance 55 ml/min; Glucose 121 mg/dl (70-99); Potassium 4.6 mmol/L (3.5-5.1); Sodium 134 mmol/L (135-145); Total Bilirubin 0.6 mg/dl (0.2-1.3); eGFR > 60.00
[2023-11-16 17:23] LABS: Magnesium 2.2 mg/dl (1.6-2.3)
[2023-11-16 17:45] LABS: Troponin I 0.088 ng/ml
--- NOTE | 2023-11-16 18:16 | HPS.HSE ---
Family Physician
-
Family Physician: INTERVIEWE UNKNOWN - PT NOT
Chief Complaint
-
syncope
History of Present Illness
62 y/o M, hx of recent anterior OR, ICM (EF 30%), hx of CVA, type 2 DM, HLD presents to ER with syncope. Patient states he was in his usual state of health and overall feeling well (as he was since discharge) until today he passed out. His
witnessed the event. Patient was sitting at his work desk on the second floor. Immediately he passed out, roughly for 1 minute and came back to and back to his usual self. He was sweating so family checked glucose, it was 133. Patient does not
recall any prior palpitations, SOB or chest pain, no lightheadedness. No seizure like activity per . Patient reports no other complaints. He states he has felt well since discharge from hospital for anterior OR and is compliant with meds. No
recent med changes. He was his PCP routinely yesterday and reports everything was felt to be ok at that time.
In ER, on monitor patient slightly tachycardic with PVC.
Medical History
Past Medical History
Past Medical History: Reports Other (recent anterior OR, ICM (EF 30%), hx of CVA, type 2 DM, HLD)
Past Surgical History: Reports Cardiac (recent cath)
Social History
Tobacco: Former Smoker
Alcohol: None
Drug: None
Personal:
Living: With Family
Employment: Employed
Family History
Family History: Not pertinent
Allergies / Home Medications
Allergies reflects when Allergies were last updated in [employer].
Home Medications with original date entered in [employer]
Allergy/Medication List:
Allergies
Allergy/AdvReac Type Severity Reaction Status Date / Time
povidone-iodine Allergy Hives Verified 04/02/23 19:54
[From Betadine]
Home Medications
metformin 500 mg tablet,extended release 24 hr 500 mg PO BID Diabetes #60 tabs 04/05/23
aspirin 81 mg tablet,delayed release 81 mg PO DAILY Blood Clot Prevention/Tx 11/04/23
empagliflozin 10 mg tablet (Jardiance) 10 mg PO DAILY #30 tabs 11/09/23
furosemide 20 mg tablet 20 mg PO DAILY #90 tabs 11/09/23
losartan 25 mg tablet 12.5 mg (1/2 x 25 mg) PO DAILY #15 tabs 11/09/23
metoprolol succinate 25 mg tablet,extended release 24 hr (Toprol XL) 25 mg PO HS #30 tabs 11/10/23
glipizide 5 mg tablet 2.5 mg PO BID Diabetes 11/16/23
potassium chloride 20 mEq tablet,extended release(part/cryst) (Klor-Con M) 10 meq PO BID 11/16/23
rosuvastatin 20 mg tablet 20 mg PO DAILY 11/16/23
Review of Systems
-
A 12 point ROS was completed and negative except as noted: Yes
Physical Exam
Vital Signs
Vital Signs
Temp Pulse Resp BP Pulse Ox
97.8 F 103 17 135/81 95
11/16/23 16:40 11/16/23 18:00 11/16/23 18:00 11/16/23 17:05 11/16/23 18:00
Physical Exam
General: Well Developed and Well Nourished
HEENT: NormoCephalic and Anicteric
Respiratory: No Wheezes or Rales
Cardiac: S1/S2 and Regular Rhythm
GI: Soft and Non Tender
Neuro: AO x 3
Hematologic/Lymphatic: No Lymphadenopathy
Psych: Calm
Laboratory Results
-
11/16/23 16:49
11/16/23 16:49
Laboratory Results
Total Bilirubin 0.6 mg/dl (0.2-1.3) 11/16/23 16:49
AST 24 U/L (17-59) 11/16/23 16:49
ALT 23 U/L (0-50) 11/16/23 16:49
Alkaline Phosphatase 69 U/L (38-126) 11/16/23 16:49
Troponin I 0.088 ng/ml H* 11/16/23 16:49
Data Reviewed
-
Lab Data: Labs Reviewed by me
Impression/Plan
-
Assessment:
Unprovoked syncope
- high suspicious for ventricular arrhythmia a few weeks after large OR
- PVC seen on monitor
- thankfully no chest pain
- check orthostatics
- admit IVU - monitor tele
- Cards/EP evaluation; keep npo p MN in case of ICD
- keep K>4, Mg >2
Recent NSTEMI
- s/p LHC: severe CAD with occlusion of mid LAD and prox RCA. subsequent stress test showed with large areas of infarct and small olena-infarct ischemia
- continue ASA/Statin/BB
- trop likely elevated from prior OR, will trend for now
Ischemic cardiomyopathy
- hold Jardiance/Lasix
- continue ARB
- continue BB
Hx of CVA - continue ASA/Statin
Type 2 DM
- hold Jardiance/MFM
- SSI
- recent A1c: 8.5%
HLD - statin
DVT ppx: SC heparin
Code: Full
[2023-11-16] MEDS: KCL 10 MEQ PO (21:50)
[2023-11-16] MEDS: HEPARIN 5000 UNITS SC (21:54)
[2023-11-16] MEDS: TOPROL XL 25 MG PO (22:43)
[2023-11-17] VITALS (42 sets, daily range): BP systolic 83–183; BP diastolic 47–132; BMI 27.1
--- NOTE | 2023-11-17 00:27 | PTCARENOTE ---
Patient assisted to IVU, walked into room, placed on tele. NSR frequent PVC's and couplets. VSS, denies pain or lightheadedness, at bedside. Verbalized understanding of the plan of care, hs snack provided, NPO at midnight
[2023-11-17 01:47] LABS: Glucose - Point of Care 169 mg/dl (70-99)
[2023-11-17 01:51] LABS: B.E. 3.4 mmol/L; HCO3 26.7 mmol/L (21-28); O2 Saturation % 99.9 % (94-98); PCO2 35 mmHg (35-48); PO2 450 mmHg (83-108); pH 7.49 (7.35-7.45)
[2023-11-17 01:54] LABS: Hematocrit 35.7 % (39.0-52.0); Hemoglobin 12.5 g/dL (13.0-18.0); Mean Corpuscular Hgb 29.8 pg (27.0-31.0); Red Cell Dist. Width 12.8 % (11.5-14.5); White Blood Cell Count 11.2 10^3/uL (4.8-10.8)
[2023-11-17 01:56] LABS: INR 1.08; PT 13.8 Sec (11.4-14.6)
[2023-11-17 01:57] LABS: APTT 29.3 Sec (23.4-35.0)
--- NOTE | 2023-11-17 02:00 | PTCARENOTE ---
rec'd pt post code into Rm 3362, oriented to icu routine, chg bath done on adm, orientedx3, does not recall events that just occurred, MENDEZ, SR w/ pvc's, couplets, triplets, amiodarone gtt at 1mg, Daniella Vargas, LEARNING OPERATIONS SPECIALIST aware of ectopy, BP stable, + pulses,
no edema, skin warm/dry, o2 6liters nc, sat 88%, incr to 10 liters midflow, sat 95, lungs clear, + bowel sounnds, no bm, abd soft/nontender, no n/v, npo, urinal at bedside, pt pain free
and sons updated and in to see pt
[2023-11-17 02:01] LABS: ALT (SGPT) 20 U/L (0-50); AST (SGOT) 21 U/L (17-59); Albumin 3.8 g/dl (3.5-5.0); Alkaline Phosphatase 65 U/L (38-126); Blood Urea Nitrogen 27 mg/dl (9-20); Calcium 9.7 mg/dl (8.4-10.2); Carbon Dioxide 22 mmol/L (22-30); Chloride 105 mmol/L (98-107); Estimated Creatinine Clearance 60 ml/min; Glucose 153 mg/dl (70-99); Magnesium 2.2 mg/dl (1.6-2.3); Potassium 5.4 mmol/L (3.5-5.1); Sodium 137 mmol/L (135-145); Total Bilirubin 0.7 mg/dl (0.2-1.3); Total Protein 6.3 g/dl (6.3-8.2); eGFR > 60.00
--- NOTE | 2023-11-17 02:06 | W.PN.UPDATE ---
Addendum entered and electronically signed by TAMMIE Guerra 11/17/23 03:32:
patient had 10 beat run of vtach, continues on amio gtt. Dr. Valerio, skein yard drier updated, recommendation received give x1 metoprolol xl 25mg PO now and continue amio gtt.
Original Note:
Update Note
Progress Note Update
Code 9 called at 0123 in IVU, patient in Vtach shocked with 200j and given epi. Refractory Vtach patient was shocked x4 (in total during code 9), given epi, bicarb, calcium, magnesium, amio 300mg, and lidocaine 70mg IV. Amiodarone gtt was
initiated for arrhythmia. Initially patient was less responsive but then became groggy but easily arousable after each shock for vtach arrhythmia. Hospitalist Dr. Erica Fabian and [facility] MAURICIO Estefany Santana both at bedside during code 9.
Land Leasing Examiner Dr. Valerio updated on code 9 events, agreed to continue Amio gtt and plan will be for ICD placement. Patient was transferred to ICU. Patient's Rody Macias updated at bedside.
--- NOTE | 2023-11-17 02:10 | PTCARENOTE ---
Walked into patients room to draw his troponin at 0115. Patient became unresponsive, eyes rolling back, and breathing was agonal. VT on the monitor. Code blue called. CPR started. See code sheet for further information. Report given to Candie and
patient transferred to [facility]. Bel[facility] to [facility].
[2023-11-17 02:11] LABS: Troponin I 0.078 ng/ml
[2023-11-17] MEDS: NSS 1000 IV ×2 (02:26→15:57)
--- NOTE | 2023-11-17 03:27 | PTCARENOTE ---
burst VTach, bp stable,had some palpitations, Daniella Vargas NP aware
[2023-11-17] MEDS: TOPROL XL 25 MG PO ×2 (03:37→21:35)
--- NOTE | 2023-11-17 03:38 | PTCARENOTE ---
toprol XL 25 mg po given as ordered
--- NOTE | 2023-11-17 04:05 | PTCARENOTE ---
sys reviewed, at bedside, pt resting, sat 97, o2 decr to 8 liters midflow
--- NOTE | 2023-11-17 05:15 | PTCARENOTE ---
Addendum entered by Candie Barksdale RN 11/17/23 05:59:
o2 decr to 4 liters midflow sat 95
Original Note:
very anxious, xanax 0.5 mg po given as ordered
[2023-11-17] MEDS: XANAX 0.5 MG PO (05:18)
[2023-11-17 05:55] LABS: Hemoglobin 11.9 g/dL (13.0-18.0); Mean Corp Hgb Conc. 33.1 g/dL (33.0-37.0); Mean Corpuscular Hgb 29.7 pg (27.0-31.0); Mean Corpuscular Volume 89.8 fL (80.0-94.0); Mean Platelet Volume 9.7 fL (7.4-10.4); Platelet Count 495 10^3/uL (130-400); Red Blood Cell Count 4.01 10^6/uL (4.70-6.10); Red Cell Dist. Width 12.7 % (11.5-14.5)
--- NOTE | 2023-11-17 06:00 | PTCARENOTE ---
Addendum entered by Candie Barksdale RN 11/17/23 06:29:
resting comf
Original Note:
decr to 2 liters o2 sat 96
[2023-11-17 06:08] LABS: Blood Urea Nitrogen 27 mg/dl (9-20); Carbon Dioxide 26 mmol/L (22-30); Chloride 103 mmol/L (98-107); Estimated Creatinine Clearance 55 ml/min; Glucose 212 mg/dl (70-99); Magnesium 2.4 mg/dl (1.6-2.3); Potassium 4.6 mmol/L (3.5-5.1); Sodium 135 mmol/L (135-145); eGFR > 60.00
[2023-11-17 06:24] LABS: Troponin I 0.178 ng/ml
--- NOTE | 2023-11-17 06:30 | PTCARENOTE ---
Addendum entered by Candie Barksdale RN 11/17/23 07:00:
also notified of trop
Original Note:
c/o chest pain- unsure if its angina or from the compressions, EKG done, bp 111/77, copy of EKG sent to Dr Burnette- will be in shortly to see pt; at this time pt does not want any pain med
[2023-11-17 06:35] LABS: TSH Reflex To Free T4 3.36 uIU/ml (0.47-4.68)
--- NOTE | 2023-11-17 07:35 | CON.CAR ---
Consultation
Consultation Request
Date/Time Consultation Requested: 11/17/23
Date/Time Consultation Performed: 11/17/23
Requesting Provider: Dr. Mustafa
Performing Provider: Dr. Valerio
Reason for Consultation: Syncope
Medical History
-
Chief Complaint: Syncope/VT
History of Present Illness:
62-year-old male with recently discovered coronary artery disease (catheterization on 11/05/2023 revealed mid LAD occlusion and chronic total proximal RCA occlusion with left to right collaterals; medical management due to late presentation anterior
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 The patient's
syncopal event was current sertraline for cardiac arrhythmia; he was just sitting at his desk at home and lost consciousness. The patient was admitted for observation and developed refractory VT whereby the patient was coded and shocked 4 times in
total as per ACLS protocol. The patient is currently lucid and did not have to be intubated. He is currently on an amiodarone drip; he did receive lidocaine 70 mg in addition to amiodarone 300 mg, epinephrine, bicarbonate, calcium, and magnesium
during the code. The patient has reproducible chest pain due to compressions. He denies shortness of breath. His and 2 sons are currently at bedside in the ICU. The patient has had no recurrence of VT on telemetry in the ICU since being on
the amiodarone drip.
Past Medical History
Past Medical History: CAD, CHF (EF 25-30%), CVA, HTN and Hypercholesterolemia
Past Surgical History: Cardiac (Cardiac catheterization/07/18)
Social History
Tobacco: Former Smoker (Quit 03/2023)
Alcohol: None
Drug: None
Personal:
Living: With Family
Employment: Employed
Family History
Family History: Reviewed & Not Pertinent
Allergies / Home Medications
Allergy/AdvReac Type Severity Reaction Status Date / Time
povidone-iodine Allergy Hives Verified 11/16/23 23:41
[From Betadine]
�Medication �Instructions �Recorded �Confirmed �Type
metformin 500 mg tablet,extended 500 mg PO BID Diabetes #60 tabs 04/05/23 11/16/23 Rx
release 24 hr
aspirin 81 mg tablet,delayed 81 mg PO DAILY Blood Clot 11/04/23 11/16/23 History
release Prevention/Tx
empagliflozin 10 mg tablet 10 mg PO DAILY #30 tabs 11/09/23 11/16/23 Rx
(Jardiance)
furosemide 20 mg tablet 20 mg PO DAILY #90 tabs 11/09/23 11/16/23 Rx
losartan 25 mg tablet 12.5 mg (1/2 x 25 mg) PO DAILY #15 11/09/23 11/16/23 Rx
tabs
metoprolol succinate 25 mg 25 mg PO HS #30 tabs 11/10/23 11/16/23 Rx
tablet,extended release 24 hr
(Toprol XL)
glipizide 5 mg tablet 2.5 mg PO BID Diabetes 11/16/23 11/16/23 History
potassium chloride 20 mEq 10 meq PO BID 11/16/23 11/16/23 History
tablet,extended
release(part/cryst) (Klor-Con M)
rosuvastatin 20 mg tablet 20 mg PO DAILY 11/16/23 11/16/23 History
Review of Systems
-
History Source: Family
All other systems: Negative unless noted
Cardiac: Chest Pain and Syncope
Physical Exam
Vital Signs
Temp Pulse Resp BP Pulse Ox
99.2 F 86 17 111/77 95
11/17/23 04:00 11/17/23 06:35 11/17/23 06:35 11/17/23 06:35 11/17/23 06:35
Lab Results
11/17/23 05:33
11/17/23 05:33
Troponin I 0.178 ng/ml H* D 11/17/23 05:33
Physical Exam
General: Well Developed, No Apparent Distress and Comfortable
HEENT: Anicteric
Respiratory: Rhonchi (Bibasilar)
Cardiac: S1/S2 and Regular Rhythm
Breast: N/A
GI: Soft
Rectal: Deferred by Provider
Musculoskeletal: No Clubbing, No Cyanosis and No Edema
Skin: Warm and Dry
Neuro: AO x 3
Psych: Calm
Impression / Plan
-
62-year-old male with recently discovered coronary artery disease (catheterization on 11/05/2023 revealed mid LAD occlusion and chronic total proximal RCA occlusion with left to right collaterals; medical management due to late presentation anterior
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 The patient's
syncopal event was current sertraline for cardiac arrhythmia; he was just sitting at his desk at home and lost consciousness. The patient was admitted for observation and developed refractory VT whereby the patient was coded and shocked 4 times in
total as per ACLS protocol. The patient is currently lucid and did not have to be intubated. He is currently on an amiodarone drip; he did receive lidocaine 70 mg in addition to amiodarone 300 mg, epinephrine, bicarbonate, calcium, and magnesium
during the code. The patient has reproducible chest pain due to compressions. He denies shortness of breath. His and 2 sons are currently at bedside in the ICU. The patient has had no recurrence of VT on telemetry in the ICU since being on
the amiodarone drip.
Refractory VT:
-The patient needs an ICD for secondary prevention; will arrange with EP Cardiology for today.
-Continue amiodarone drip.
-Continue Toprol-XL 25 mg daily.
-Continue monitor technician in the ICU.
-Keep NPO.
Coronary artery disease (catheterization on 11/05/2023 revealed mid LAD occlusion and chronic total proximal RCA occlusion with left to right collaterals; medical management due to late presentation anterior [place]):
-Continue aspirin, rosuvastatin, and metoprolol succinate.
Troponin elevation:
-Secondary to acute nonischemic myocardial injury in the setting of tachycardia/defibrillatory shocks.
Acute HFrEF/ICM (EF 25-30%):
-Fairly compensated on examination.
-Continue Toprol-XL and losartan.
-Will resume Jardiance.
Hypertension:
-Blood pressure is controlled on current management.
Hyperlipidemia:
-Continue rosuvastatin.
NIDDM:
-Hemoglobin A1c 8.5%.
-Management as per primary team; on metformin, glipizide, and Jardiance at home.
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
-Continue aspirin and statin; no occult A-fib was noted on heart monitor.
Chronic cigarette use (approximately [id number]; quit 04/02/2023)
-Patient should continue to refrain from tobacco use.
Data Reviewed
-
EKG: Report Reviewed by me (Sinus rhythm at 85 bpm with LVH with QRS widening and repolarization. Lateral ST/T abnormality.)
Medical Tests (Nuc Med, Echo etc): Report Reviewed by me (Transthoracic echocardiogram (11/04/2023): LVEF 25-30%, regional wall motion abnormalities concerning for severe CAD.)
Labs: Labs Reviewed by me, Discussed with Patient and Discussed with Family ( and sons at bedside)
Critical Care Time (in minutes): 65
[2023-11-17] MEDS: ASPIR LOW (ENTERIC COATED) 81 MG PO (07:45)
[2023-11-17] MEDS: CRESTOR 20 MG PO (07:46)
[2023-11-17] MEDS: HEPARIN 5000 UNITS SC ×3 (07:46→23:09)
[2023-11-17] MEDS: COZAAR 12.5 MG PO (07:46)
[2023-11-17 08:06] LABS: Glucose - Point of Care 219 mg/dl (70-99)
[2023-11-17] MEDS: NOVOLOG FLEXPEN-LOW RESISTANCE 2 UNITS SC (08:11)
[2023-11-17] MEDS: KCL PO (08:12)
--- NOTE | 2023-11-17 08:13 | CON.INTV ---
Consultation
Consultation Request
Date/Time Consultation Requested: 11/17/2023221
Date/Time Consultation Performed: 11/17/2023 - 801
Requesting Provider: TAMMIE Harris
Performing Provider: Jason Duran MD
Reason for Consultation: VF/VT
Medical History
-
Chief Complaint: I passed out
History of Present Illness:
62-year-old male with a past medical history of recent anterior [place] with severe CAD, ICM/HFrEF, history of embolic CVA due to PFO (patient declined closure per documentation from cardiology), DM type II, dyslipidemia, and former tobacco use disorder
who presents with syncope. 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 He denies any head trauma. After about 1 minute he awoken and was back to his usual self. He was sweating and his family checked his glucose but it was normal at
133. There was no preceding symptoms like shortness of breath or chest pain or lightheadedness. Also no seizure-like activity during or after episode. Patient was recently hospitalized here from 11/03ue to a late anterior [place].
Nuclear stress test at that time showed large perfusion defects with small olena-infarct ischemia. Coronary stenting and CT surgical revascularization was not recommended. Medical therapy was recommended. He was sent home and says he has been
feeling well since that time. In the ER he was having PVCs. Pt admitted to IVU where he developed sustained VT and was shocked with 200J and given epi due to hypotension. He required 4 shocks in total due to refractory VT and given bicarb,
calcium, magnesium, 70 mg lidocaine and also started on amiodarone. Patient never lost pulse. Also he was lucid after this event and did not need to be intubated. Patient transferred to the ICU for further care and critical care services
consulted for additional management/recommendations.
This AM went into sustained VT, never lost pulse, shocked x 1 with 200J with return of NSR. Given lopressors 5mg IVP x1 after event, then given re-bolus of amiodarone and he continues to remain on amio infusion. Cardiology aware of event and he
is pending ICD/PPM placement. When I saw the patient, multiple for members at bedside. I answered all the questions. He remains on supplemental oxygen 11 L/min midflow nasal cannula. Patient currently denies chest pain, headache, shortness of
breath, abdominal pain, diarrhea, fevers or chills.
PMHx: CAD, HFrEF, ICM, hypertension, hyperlipidemia, DM type II, history of embolic CVA secondary to PFO, tobacco use disorder
PSHx: Right leg repair, coronary cath
Past Medical History
Past Medical History: Other (Above as per HPI)
Past Surgical History: Other (Above as per HPI)
Social History
Tobacco: Former Smoker
Alcohol: None
Drug: None
Personal:
Living: With Family
Employment: Employed
Family History
Family History: Reviewed & Not Pertinent
Allergies / Home Medications
Allergies
Allergy/AdvReac Type Severity Reaction Status Date / Time
povidone-iodine Allergy Hives Verified 11/16/23 23:41
[From Betadine]
Home Medications
�Medication �Instructions �Recorded �Confirmed �Last Taken �Type
metformin 500 mg tablet,extended 500 mg PO BID Diabetes #60 tabs 04/05/23 11/16/23 11/16/23 Rx
release 24 hr
aspirin 81 mg tablet,delayed 81 mg PO DAILY Blood Clot 11/04/23 11/16/23 11/16/23 History
release Prevention/Tx
empagliflozin 10 mg tablet 10 mg PO DAILY #30 tabs 11/09/23 11/16/23 11/16/23 Rx
(Jardiance)
furosemide 20 mg tablet 20 mg PO DAILY #90 tabs 11/09/23 11/16/23 11/16/23 Rx
losartan 25 mg tablet 12.5 mg (1/2 x 25 mg) PO DAILY #15 11/09/23 11/16/23 11/16/23 Rx
tabs
metoprolol succinate 25 mg 25 mg PO HS #30 tabs 11/10/23 11/16/23 11/15/23 Rx
tablet,extended release 24 hr
(Toprol XL)
glipizide 5 mg tablet 2.5 mg PO BID Diabetes 11/16/23 11/16/23 11/16/23 History
potassium chloride 20 mEq 10 meq PO BID 11/16/23 11/16/23 11/16/23 History
tablet,extended
release(part/cryst) (Klor-Con M)
rosuvastatin 20 mg tablet 20 mg PO DAILY 11/16/23 11/16/23 11/16/23 History
Review of Systems
-
History Source: Patient
All other systems: Negative unless noted (12 point ROS performed and is negative unless mentioned above.)
Vitals / Labs / Diagnostic Testing
Vital Signs
Temp Pulse Resp BP Pulse Ox
98.9 F 81 19 110/73 95
11/17/23 07:59 11/17/23 09:00 11/17/23 09:00 11/17/23 09:00 11/17/23 09:00
Lab Data
11/17/23 05:33
11/17/23 05:33
Laboratory Results
11/17/23
01:45
PT 13.8
INR 1.08
APTT 29.3
pH 7.49 H
pCO2 35
pO2 450 H
HCO3 26.7
O2 Delivery Level Not Reportable
Diagnostic Testing:
Physical Exam
-
HEENT: Normocephalic and Anicteric
Cardiovascular: S1/S2 and Peripheral Edema (negative)
Respiratory: Wheeze (negative), Rales (Bilaterally), Rhonchi (negative) and Non-Labored Respirations
GI: Soft, Non Distended and Non Tender
Neurology: AO x 3
Skin: Warm and Dry
General: Comfortable, Chills (negative) and Sweats (negative)
Assessment
-
Assessment: 62-year-old male with a past medical history of recent late�presentation anterior [place] with severe CAD, ICM/HFrEF, history of embolic CVA due to PFO (patient declined closure per documentation from cardiology), DM type II, dyslipidemia,
and former tobacco use disorder who presents with syncope. 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 He denies any head trauma. After about 1 minute he awoken and was back to his usual self. He was sweating and his family checked
his glucose but it was normal at 133. There was no preceding symptoms like shortness of breath or chest pain or lightheadedness. Also no seizure-like activity during or after episode. Patient was recently hospitalized here from 11/03
due to a late anterior [place]. Nuclear stress test at that time showed large perfusion defects with small olena-infarct ischemia. Coronary stenting and CT surgical revascularization was not recommended. Medical therapy was recommended. He was sent
home and says he has been feeling well since that time. In the ER he was having PVCs. Pt admitted to IVU where he developed sustained VT and was shocked with 200J and given epi due to hypotension. He required 4 shocks in total due to refractory
VT and given bicarb, calcium, magnesium, 70 mg lidocaine and also started on amiodarone. Patient never lost pulse. Also he was lucid after this event and did not need to be intubated. Patient transferred to the ICU for further care and critical
care services consulted for additional management/recommendations.
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
Impression:
#Refractory VT - likely due to known CAD
#Hyperglycemia
#Acute respiratory failure with hypoxia on supplemental oxygen
#Acute cardiogenic pulmonary edema
#Elevated troponin (initial troponin 0.088) - likely due to demand ischemia
#Hx of CAD
#Hx of embolic CVA with Hx of PFO
#Former tobacco use disorder (quit 03/2023 with [id number] Hx)
#ICM/acute HFrEF
Plan:
- Going down for BiV-ICD placement and possible VT-ablation
- Starting lidocaine gtt as per cardiology
- Continue ASA
- Maintain SpO2 >94%
- Maintain MAP>65
- Replete electrolytes with K>4, Mg>2
- Continue amio gtt
- Keep Zol pads on patient in case need to cardiovert
- Keep NPO until after procedure BiV-ICD is done
- Maintain euglycemia with goal BG 140-180
- prn nebulized bronchodilators
- Incentive spirometer
- He qualifies for lung cancer screening via LDCT chest given his [id number] history of smoking and quit in March 2023 - this can be discussed with us in the office. Also, there were no significant nodule seen on CTA chest from 11/05/2023. He
did however have bilateral opacities likely due to acute pulmonary edema +/- pneumonia seen on the CTA chest, hence he should have repeat imaging in about 6 weeks from the date of that CTA chest (mid-November 2023).
- DVT ppx
Critical care statement: A total of 40 minutes of critical care time was provided for this patient today. This includes management of unstable vital signs, evaluation of the patient at bedside, reviewing the patient's pertinent medical records
including radiographs, microbiology, laboratory evaluations, and discussion with primary team, consultants, pharmacy, nutrition, physical therapy, case management, charge nurse, critical care nursing, and respiratory therapy.
Data:
CXR 11-17-2023: Borderline cardiomegaly with mild-moderate pulmonary edema
TTE 11-04-2023:
Severely reduced left ventricular systolic function. LV ejection fraction is
25-30% by visual assessment.
There are regional wall motion abnormalities concerning for severe CAD (below)
Mild mitral regurgitation.
Color flow pattern suggestive of PFO.
Compared to prior study of Mar 2023, LV dysfunction is new.
--- NOTE | 2023-11-17 09:06 | PTCARENOTE ---
Assumed care of pt. VSS with bursts of VT 2-5beats. Anxious, family at bedside. Connected to defribrillator. Amio gtt at 1mg/hr, NSS at 80cc/hr.
[2023-11-17] MEDS: LOPRESSOR 2.5 MG IV ×2 (09:49→10:00)
--- NOTE | 2023-11-17 09:56 | W.PN.UPDATE ---
Update Note
Progress Note Update
Patient with runs of NSVT prompted by R on T PVCs. Lopressor 2.5mg IV given x 1.
NVST increased and he had run of VT. He was shocked with 200 J.
Additional Lopressor ordered, 2.5mg x1 now.
Amiodarone 150mg bolus in addition to gtt.
[2023-11-17] MEDS: CORDARONE 103 MG IV (10:03)
--- NOTE | 2023-11-17 10:08 | PTCARENOTE ---
At 0944 pt went into sustained Vtach. Pt became unresponsive. 200J shock delivered with return to sinus rhythm. 2.5mg Lopressor X2 administered followed by Amiodarone 150mg bolus.
[2023-11-17] MEDS: XYLOCAINE 2 GRAM 500 IV (11:02)
[2023-11-17 11:22] LABS: Glucose - Point of Care 177 mg/dl (70-99)
[2023-11-17] MEDS: NOVOLOG FLEXPEN-MODERATE RESISTANCE 1 UNITS SC (12:20)
--- NOTE | 2023-11-17 13:59 | W.PN.HOSP.TC ---
Today's Communication/Plan
-
see outlined plan
Assessment / Plan
Assessment / Plan
Assessment:
Unprovoked syncope
Confirmed V-Tach
- Coded 11/16 at 1 AM and shocked
- further VT seen today with NSVT and R on T PVCs, while awake - again shocked
- now on Amiodarone drip
- now on Lidocaine drip
- continue BB
- for ICD placement now for secondary prevention with CBC cards/EP
- keep K>4, Mg >2
Recent NSTEMI
- s/p LHC: severe CAD with occlusion of mid LAD and prox RCA. subsequent stress test showed with large areas of infarct and small olena-infarct ischemia
- continue ASA/Statin/BB
- trop likely elevated from prior NE, will trend for now
Ischemic cardiomyopathy
- hold Jardiance/Lasix
- continue ARB
- continue BB
Hx of CVA - continue ASA/Statin
Type 2 DM
- hold Jardiance/MFM
- SSI
- recent A1c: 8.5%
HLD - statin
DVT ppx: SC heparin
Code: Full
Total Critical Care Time 41 minutes. I was immediately available to the patient and staff. I personally examined, reviewed labs, diagnostic images/reports, interpretations, treatment plans, discussed patient care with other providers and family
or caregivers (if patient is unable to make decisions), entered orders as appropriate and documented the medical record.
Anticipated Discharge: > 48 hours
Subjective/Interval History
-
Date of Service: November 17, 2023
overnight events of CODE and todays events reviewed
currently asymptomatic but remains on Amio and Lidocaine drips
for EP lab now for ICD placement
Objective Data
-
Labs:
Laboratory Results
11/17/23 11/17/23
01:45 05:33
WBC 13.0 H
Hgb 11.9 L
Hct 36.0 L
Plt Count 495 H
PT 13.8
INR 1.08
APTT 29.3
Sodium 137 135
Potassium 5.4 H 4.6
Chloride 105 103
Carbon Dioxide 22 26
BUN 27 H 27 H
Creatinine 1.1 1.2
Glucose 153 H 212 H
Calcium 9.7 10.0
Total Bilirubin 0.7
AST 21
ALT 20
Alkaline Phosphatase 65
Vital Signs:
Vital Signs
Temp Pulse Resp BP Pulse Ox
98.7 F 76 25 111/76 98
11/17/23 11:17 11/17/23 12:00 11/17/23 12:00 11/17/23 12:00 11/17/23 11:00
I&O
11/16/23 11/17/23 11/18/23
06:59 06:59 06:59
Intake Total 508.2 / 621.5 873.1 / 873.1
Output Total 400 / 400
Balance 508.2 / 621.5 473.1 / 473.1
Physical Exam
-
General: No Apparent Distress
HEENT: Normocephalic and Atraumatic
Respiratory: Negative Wheezes
Cardiac: Regular Rhythm and Other (ectopy, R on T )
Genito-urinary: No Costovertebral Tender
Musculoskeletal: No Edema
Neuro: AO x 3
Hematologic / Lymphatic: No Lymphadenopathy
Psych: Calm
Data Reviewed
-
Critical Care Time (in minutes): 41
Labs: Labs Reviewed by me
--- NOTE | 2023-11-17 14:19 | CM ---
CM following re: discharge planning.
Reviewed pt's chart, met with pt. Pt's spouse, brother and sister in law at bedside.
Pt is a 62 year old male, admitted with primary dx of Sepsis.
Pt lives with spouse and a son in a 2[place], has 2 supportive children. 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
PCP: Alexandre Mcmillan.
Pharmacy: [facility]
D/C plan: home with anticipated no needs. Family to transport at discharge.
CM will follow with discharge plan updates as hospitalization progresses
--- NOTE | 2023-11-17 14:38 | PTCARENOTE ---
Pt to EP lab at 1355 with lab RNs, attached to defibrillator. VSS on amio and lidocaine gtts.
--- NOTE | 2023-11-17 15:34 | ITS.CL.ICD ---
Gis Developer - ICD
Implantable Cardioverter Defibrillator
Procedure Report:
Dual Chamber Implantable Cardioverter Defibrillator Placement:
Mr. Macias is a very pleasant 62 years old gentleman with cardiac arrest and multiple episodes of VT arrest in the ICU on Amiodarone and lidocaine gtt has frequent PVCs and ahd short coupled PVC with R on T causing polymorphic VT that regulates
into monomorphic VT is in need for pacing to overdrive suppression of PVCs and ICD for his repeated cardiac arrest.
He is recommended a dual chamber ICD placement.
Indications: Monomorphic and polymorphic VT with repeated cardiac arrest
Date of the Procedure: 11/17/2023
Pre-Operative Diagnosis: Secondary prevention of sudden cardiac for ventricular tachycardia
Post-Operative Diagnosis: Secondary prevention of sudden cardiac for ventricular tachycardia
Procedure Performed: DUAL CHAMBER IMPLANTABLE CARDIOVERTER DEFIBRILLATOR IMPLANTATION
Surgeon:
Remy Montoya MD
Anesthesia:
See anesthesia records
Detailed Description of the Procedure:
The patient was identified using hospital identification and informed consent obtained for the procedure. The risks were explained including, but not limited to: Bleeding, infection, arrhythmia, stroke, vascular/cardiac/lung puncture, surgery,
pacemaker dependency/device malfunction. All questions were answered.
The patient was brought to the electrophysiology laboratory in stable condition in fasting state. Continuous electrocardiographic and hemodynamic monitoring was initiated. The initial rhythm was normal sinus rhythm with PVCs.
The procedure site was meticulously prepared with surgical scrub and allowed to dry with no pooling. Sterile draping was applied to cover the procedure site. The image intensifier was draped with sterile bag and positioned over the patient.
The left infraclavicular region was prepped and draped in the usual sterile fashion. Local anesthesia was administered subcutaneously using 1% lidocaine / Bupivacaine. The left cephalic vein cutdown was performed with an incision at the
delto-pectoral groove, and vascular sheaths were introduced for lead access. These were advanced into the right ventricle and the right atrium. The right ventricular lead was secured in position with an active fixation technique at the apical septal
location. The RA lead was attached in the right atrial appendage with active fixation. There was excellent sensing, pacing, and impedance from the leads, with no diaphragmatic stimulation at 10 V output.�Bovie cautery, antibiotics, and fluoroscopy
were used.
The sheath was withdrawn, and the thresholds remained acceptable. The leads were secured in position at the venous entry site with 0-silk and anchored to the underlying fascia. A pocket was fashioned contiguous to the incision. The electrode
terminals were connected to the pulse generator, which was placed into the pocket. The wound was irrigated thoroughly with antibiotic solution.
The wound was closed in 3 layers using 2-0 Vloc sutures followed by 4-0 V-loc sutures. Steri-Strips and a bandage were applied externally.�
Procedure End:
The procedure was tolerated well. A bandage was applied to the incision area.
Estimated Blood loss:
5 cc
Specimens Removed:
No cultures and no specimens were obtained. No intraoperative pathology was identified.
Urine output:
None
Packs / Drains/ Tubes:
None
Instrument / Sponge Count Correct:
Yes
Complications of the Procedure:
None
Condition of Patient at Time of Transfer:
Hemodynamically stable with no neurological or vascular compromise.
Device information:�
Generator: [employer]; Model: [id number]; Serial # [id number]�
Atrial Lead: St [employer]; Model: Tendril [id number] [id number]; Serial # [id number]
Measured data in the right atrium was sensing of 2.8 mV, impedance of 390 ohms and threshold of 1.0 V at 0.5ms�
RV Lead: St Taiwo [employer]nis; Model: [id number]; Serial # [id number]
Measured data in the RV lead was sensing of 12 mV, impedance of 530ohms and threshold of 0.75 V at 0.5ms�
PROGRAMMING PARAMETERS:�
Taqueria parameter settings were DDDR 85-130 bpm
����������� Mode switch: On
����������� Rate responsive A-V delay: Off
����������� Ventricular intrinsic Preference (VIP): on
����������� VIP extension:� 200 ms
����������� Search interval 30 sec
Tachy parameter settings:
����������� SVT discrimination: On
����������� AF/AFl: On
����������� SVT limit: 260 msec
����������� VT zone:
����������������������� Slow VT: 150-166 bpm --> Monitor
����������������������� Fast VT: 166-200--> ATP x3 then Shock x3
����������������������� VF: >200 bpm--> ATP x1 then Shock x6
�����������
Summary:
Successful implantation of MRI compatible dual chamber Dalton ICD pacemaker
Results/Recommendations:
-Please follow up CXR�
1. Please provide patient with adequate pain control�
Instructions to be given to patient:�
- Please follow up with [facility] at [address] [place] [address] ([phone]) to get your wound checked within 7 days of your discharge.
- Do not wet incision site until after it is evaluated at cardiology clinic. No showers until then. Sponge baths are OK.�
- Allow 'steri strips' to fall off on their own�
- Do not lift left elbow above shoulder, particularly with sudden jerking movements, for 1 month�
- Do not lift anything weighing more than 5 pounds with the left arm for 1 month�
- If you notice any fevers, shortness of breath, lightheadedness, chest pain, or worsening swelling in the wound site, please contact the arrhythmia clinic, contact your sandblaster supervisor, or present to the hospital for evaluation.�
Remy Montoya MD
Electrophysiology
[2023-11-17] MEDS: CORDARONE 518 MG IV (16:12)
[2023-11-17 16:34] LABS: Glucose - Point of Care 200 mg/dl (70-99)
[2023-11-17] MEDS: NOVOLOG FLEXPEN-MODERATE RESISTANCE 3 UNITS SC (16:41)
--- NOTE | 2023-11-17 17:13 | PTCARENOTE ---
Pt returned from EP lab. Sequential VS started. Pt A&O without c/o pain. HR 100% A-paced at 85. BP WNL. Amio and lidocaine gtt continues as ordered. L chest wall with AICD under aquacel and pressure dressing. LUE immobilizer in place. Family at
bedside.
--- NOTE | 2023-11-17 20:00 | PTCARENOTE ---
rec`d pt at 1900 laying in bed, AAOx3, very pleasant. afebrile. + pulses, no edema. pt 100% A paced via AICD. setting DDDR 85-130. Hr currently 86 on monitor. pt has original post op dressing and stabilizer in place. dressing c/d/i. rt FA 20, LT AC
20, LT w 20. amio and lidocaine gtts continued. not titrated per MD orders. 8L midflow satting at 97%. clear lung sounds. low choles diet. pt uses urinal. pt a 1x assist. call amezquita in reach, safe environment maintained.
[2023-11-17] MEDS: ANCEF 5 IV (21:35)
[2023-11-17 21:55] LABS: Glucose - Point of Care 228 mg/dl (70-99)
[2023-11-18] VITALS (21 sets, daily range): BP systolic 85–130; BP diastolic 55–86; BMI 28.1
--- NOTE | 2023-11-18 | PTCARENOTE ---
pt reassessed. no changes in pt assessment. call amezquita in reach.
[2023-11-18] MEDS: NSS 1000 IV (03:06)
--- NOTE | 2023-11-18 04:00 | PTCARENOTE ---
pt reassessed. no changes in pt assessment. call amezquita in reach.
[2023-11-18 04:31] LABS: Hematocrit 34.8 % (39.0-52.0); Hemoglobin 11.7 g/dL (13.0-18.0); Mean Corp Hgb Conc. 33.6 g/dL (33.0-37.0); Mean Corpuscular Hgb 29.3 pg (27.0-31.0); Mean Corpuscular Volume 87.2 fL (80.0-94.0); Mean Platelet Volume 9.7 fL (7.4-10.4); Platelet Count 446 10^3/uL (130-400); Red Blood Cell Count 3.99 10^6/uL (4.70-6.10); Red Cell Dist. Width 12.9 % (11.5-14.5)
[2023-11-18 04:59] LABS: Blood Urea Nitrogen 36 mg/dl (9-20); Calcium 9.5 mg/dl (8.4-10.2); Carbon Dioxide 18 mmol/L (22-30); Chloride 104 mmol/L (98-107); Estimated Creatinine Clearance 51 ml/min; Glucose 170 mg/dl (70-99); Magnesium 2.2 mg/dl (1.6-2.3); Phosphorus 5.2 mg/dl (2.5-4.5); Potassium 5.2 mmol/L (3.5-5.1); Sodium 132 mmol/L (135-145); eGFR > 60.00
[2023-11-18 05:04] LABS: NT-proBNP 6700 pg/ml
[2023-11-18] MEDS: NOVOLIN R 10 UNITS IV (05:26)
[2023-11-18] MEDS: DEXTROSE 50% SYRINGE 25 GRAMS IV (05:28)
[2023-11-18] MEDS: ANCEF 5 IV (05:38)
--- NOTE | 2023-11-18 07:40 | W.PN.CD ---
Today's Communication / Plan
-
- Decreased Amioda gtt
- stop Lidocaine gtt after 24 hours
- Lasix 40 mg IV x1 today
- ECHO today
Impression / Plan
-
62-year-old male with recently discovered coronary artery disease (catheterization on 11/05/2023 revealed mid LAD occlusion and chronic total proximal RCA occlusion with left to right collaterals; medical management due to late presentation anterior
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 The patient's
syncopal event was current sertraline for cardiac arrhythmia; he was just sitting at his desk at home and lost consciousness. The patient was admitted for observation and developed refractory VT whereby the patient was coded and shocked 4 times in
total as per ACLS protocol. The patient is currently lucid and did not have to be intubated. He is currently on an amiodarone drip; he did receive lidocaine 70 mg in addition to amiodarone 300 mg, epinephrine, bicarbonate, calcium, and magnesium
during the code. The patient has reproducible chest pain due to compressions. He denies shortness of breath. His and 2 sons are currently at bedside in the ICU. The patient has had no recurrence of VT on telemetry in the ICU since being on
the amiodarone drip.
Refractory VT:
-VT storm associated with short coupled PVC and start of Torsades with sustained VT with monomorphic pattern
-Recent infarct - LAD territory - ectopy with reperfusion and scar based reentry to sustain
- s/p dual chamber ICD (St Taiwo 11/17/23)
- atrial pacing at 85 bpm - suppressing PVC with overdrive pacing
- No more VT since the atrially paced at 85 bpm
- Continue Amiodarone gtt - decrease dose to 0.5 mg/min
- Continue Lidocaine gtt 1 mg/nib for 24 hours.
- Continue Toprol-XL 25 mg daily. likely would like to increase if BP allows.
- Continue monitoring tech in the ICU.
- ECHO today
Coronary artery disease (catheterization on 11/05/2023 revealed mid LAD occlusion and chronic total proximal RCA occlusion with left to right collaterals; medical management due to late presentation anterior [place]):
-Continue aspirin, rosuvastatin, and metoprolol succinate.
Troponin elevation:
-Secondary to acute nonischemic myocardial injury in the setting of tachycardia/defibrillatory shocks.
Acute HFrEF/ICM (EF 25-30%):
-Fairly compensated on examination.
-Continue Toprol-XL and losartan.
-Will resume Jardiance once stable
Pulm Edema
-hyopxic resp failure with increasing oxygen requirements.
-CXR shows pulm / interstitial edema
- Lasix as tolerrated based on his BP
- start lasix 40 mg IV.
- Replete K and Mg accordingly (K is 5.2 now and acceptable. Goal is to keep > 4.5)
Hypertension:
-Blood pressure is controlled on current management.
Hyperlipidemia:
-Continue rosuvastatin.
NIDDM:
-Hemoglobin A1c 8.5%.
-Management as per primary team; on metformin, glipizide, and Jardiance at home.
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
-Continue aspirin and statin; no occult A-fib was noted on heart monitor.
Chronic cigarette use (approximately [id number]; quit 04/02/2023)
-Patient should continue to refrain from tobacco use.
Physical Exam
Vital Signs/Labs
Vital Signs
Temp Pulse Resp BP Pulse Ox
98.4 F 86 17 99/70 92
11/18/23 03:34 11/18/23 05:00 11/18/23 05:00 11/18/23 05:00 11/18/23 05:00
11/17/23 11/18/23 11/19/23
06:59 06:59 06:59
Actual Weight 71.5 kg 74.1 kg
11/18/23 04:13
11/18/23 04:13
PT 13.8 Sec (11.4-14.6) 11/17/23 01:45
INR 1.08 11/17/23 01:45
APTT 29.3 Sec (23.4-35.0) 11/17/23 01:45
Magnesium 2.2 mg/dl (1.6-2.3) 11/18/23 04:13
11/18/23
04:13
Kzu-U-Bxhroufmbos Pept 6700
LAB Results
11/16/23 11/17/23 11/17/23
16:49 01:00 01:45
Troponin I 0.088 H* Cancelled 0.078 H*
11/17/23
05:33
Troponin I 0.178 H* D
Physical Exam
Constitutional: No acute distress and Comfortable
EENT: Anicteric and Moist mucous membranes
Cardiovascular: Rhythm & rate is regular, JVD present and Systolic murmur present
Respiratory: Respiratory effort normal, Crackles Present and Rhonchi Present
GI: Soft, Non tender and Normal bowel sounds
Neuro/Psych: Alert, Oriented and AO x 3
Other: Cardiac Device Site
Data Reviewed
-
Date of Service: November 18, 2023
Medical Decision Making: Reviewed Test Results, Independent Historian Assessment and Test Interpretation
EKG: Tracing Personally Visualized and interpreted
Echo: Ordered by me
X-Ray/CT/US/MRI/NUC/PET: Image Personally Visualized and interpreted
Labs: Labs Reviewed by me
Old Records: Reviewed
Critical Care Time (in minutes): 40
[2023-11-18 07:47] LABS: Glucose - Point of Care 135 mg/dl (70-99)
--- NOTE | 2023-11-18 08:00 | PTCARENOTE ---
Received patient from night clerk auditor. patient AAOx3, awake, conversant, pleasant. also present at bedside. Patient is Paced on monitor, no edema. remains on 8L midflow, saturating 93-94%. lungs are coarse, fine bibasilar crackles auscultated.
cholesterol lowering diet ordered, using urinal to void, on heparin for DVT prophylaxis. Amio, lidocaine, and IVF running peripherally. Will review orders, call amezquita within reach.
[2023-11-18] MEDS: NOVOLOG FLEXPEN-MODERATE RESISTANCE SC ×2 (08:02→12:23)
[2023-11-18] MEDS: JARDIANCE 10 MG PO (08:02)
[2023-11-18] MEDS: COZAAR 12.5 MG PO (08:04)
[2023-11-18] MEDS: ASPIR LOW (ENTERIC COATED) 81 MG PO (08:08)
[2023-11-18] MEDS: CRESTOR 20 MG PO (08:08)
[2023-11-18] MEDS: HEPARIN 5000 UNITS SC ×3 (08:08→23:31)
--- NOTE | 2023-11-18 08:18 | W.PN.INTV ---
Today's Communication / Plan
Recommendations
A-paced
Zoll pads on patient
Amio gtt as per cardiology
Repeat TTE today
Wean down O2 flow rate to maintain SpO2 >90-94%
Stop IVF, resume lasix, keep net negative as tolerated
Repeat CXR in AM
Outpatient pulmonary follow up
Continue ICU level of care for another 24 hours
Assessment
-
Assessment: 62-year-old male with a past medical history of recent late�presentation anterior [place] with severe CAD, ICM/HFrEF, history of embolic CVA due to PFO (patient declined closure per documentation from cardiology), DM type II, dyslipidemia,
and former tobacco use disorder who presents with syncope. 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 He denies any head trauma. After about 1 minute he awoken and was back to his usual self. He was sweating and his family checked
his glucose but it was normal at 133. There was no preceding symptoms like shortness of breath or chest pain or lightheadedness. Also no seizure-like activity during or after episode. Patient was recently hospitalized here from 11/03
due to a late anterior [place]. Nuclear stress test at that time showed large perfusion defects with small olena-infarct ischemia. Coronary stenting and CT surgical revascularization was not recommended. Medical therapy was recommended. He was sent
home and says he has been feeling well since that time. In the ER he was having PVCs. Pt admitted to IVU where he developed sustained VT and was shocked with 200J and given epi due to hypotension. He required 4 shocks in total due to refractory
VT and given bicarb, calcium, magnesium, 70 mg lidocaine and also started on amiodarone. Patient never lost pulse. Also he was lucid after this event and did not need to be intubated. Patient transferred to the ICU for further care and critical
care services consulted for additional management/recommendations.
Chronic conditions FLAME GOUGER: CAD, HFrEF, ICM, hypertension, hyperlipidemia, DM type II, history of embolic CVA secondary to PFO, former tobacco use disorder
Impression:
#Refractory VT - likely due to known CAD - s/p BiV-ICD placement on 11/17/2023
#Hyperglycemia
#Acute respiratory failure with hypoxia on supplemental oxygen
#Acute cardiogenic pulmonary edema
#Elevated troponin (initial troponin 0.088) - likely due to demand ischemia
#Hx of CAD
#Hx of embolic CVA with Hx of PFO
#Former tobacco use disorder (quit 03/2023 with [id number] Hx)
#ICM/acute HFrEF
Plan:
- Went down for BiV-ICD placement on 11/16 --> currently A-pacing at 85bpm, suppressing PVCs with overdrive pacing
- Continue lidocaine gtt and wean off after 24 hrs as per cardiology
- For repeat echo today
- Continue ASA and high-intensity statin
- Goal LDL<70 (85 on 11/05/2023)
- Goal BG 140-180mg/dL --> consult diabetic CAMPAIGN MARKETING SPECIALIST for insulin management and education
- Consult project planner as well
- Maintain SpO2 >94%
- Maintain MAP>65
- Replete electrolytes with K>4, Mg>2
- Continue amio gtt as per cardiology
- Toprol-XL - raise dose as BP allows
- Keep Zol pads on patient in case need to cardiovert
- Maintain euglycemia as stated above
- Consult nurses educator
- prn nebulized bronchodilators
- Incentive spirometer
- Stop IVF, resume lasix 40mg IV daily while trending UOP, and maintain net negative fluid balance as BP tolerates
- Re-check CXR tomorrow to re-assess extent of pulmonary edema
- He qualifies for lung cancer screening via LDCT chest given his 18-[id number]-hthl history of smoking and quit in March 2023 - this can be discussed with us in the office. Also, there were no significant nodule seen on CTA chest from 11/05/2023. He
did however have bilateral opacities likely due to acute pulmonary edema +/- pneumonia seen on the CTA chest, hence he should have repeat imaging in about 6 weeks from the date of that CTA chest (-November 2023)
- Also, given that he will likely be on amiodarone long-term, he should follow with us in office for bi-annual spirometry to trend his FVC
- DVT ppx: HSQ
Considering patient remains A-paced with overdrive pacing suppressing PVCs with possible recurrent VT as his atrial-pacing rate is reduced, patient requires q1hr vital signs and will remain in ICU for another 24 hrs.
Critical care statement: A total of 41 minutes of critical care time was provided for this patient today. This includes management of unstable vital signs, evaluation of the patient at bedside, reviewing the patient's pertinent medical records
including radiographs, microbiology, laboratory evaluations, and discussion with primary team, consultants, pharmacy, nutrition, physical therapy, case management, charge nurse, critical care nursing, and respiratory therapy.
Data:
CXR 11-17-2023: Borderline cardiomegaly with mild-moderate pulmonary edema
TTE 11-04-2023:
Severely reduced left ventricular systolic function. LV ejection fraction is
25-30% by visual assessment.
There are regional wall motion abnormalities concerning for severe CAD (below)
Mild mitral regurgitation.
Color flow pattern suggestive of PFO.
Compared to prior study of Mar 2023, LV dysfunction is new.
Subjective Dataa
Subjective Data
Date of Service:
Date of Service: November 18, 2023
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
Subjective:
Pt seen this AM alongside . No episodes of VT overnight. He is on amio gtt at 0.5mg/min and lidocaine gtt at 1mg/min. He is currently A-paced. He is on midflow at 8L/min this AM, but when I saw him he was on 11L/min. BP 89/63 with HR 85.
Received Lasix 40mg IVP x1 this morning. He also is on NS 0.9% @ 80cc/hr this AM, which was stopped this AM.
Review of Systems
General: Other (Negative unless mentioned above)
Objective Data
Data Reviewed
Vital Signs / I&O / Oxygen:
Vital Signs
Temp Pulse Resp BP Pulse Ox
98.7 F 86 18 96/71 98
11/18/23 07:54 11/18/23 08:04 11/18/23 08:04 11/18/23 08:04 11/18/23 08:46
Intake and Output
11/17/23 11/18/23 11/19/23
06:59 06:59 06:59
Intake Total 508.2 / 621.5 2525.9 / 2637.6 223.4 / 223.4
Output Total 900 / 900
Balance 508.2 / 621.5 1625.9 / 1737.6 223.4 / 223.4
SaO2 98
Nasal Cannula flow liters per 8
minute
Physical Exam
General: Respiratory Distress (Negative) and Comfortable
HEENT: Normocephalic and Anicteric
Cardiovascular: S1-S2 and Peripheral Edema (negative)
Respiratory: Wheeze (negative), Crackles (Bilaterally), Rhonchi (negative) and Non-Labored Respirations
GI: Soft, Non Distended, Non Tender and Normal Bowel Sounds
Neurology: AO x 3 and Tremors (negative)
Skin: Warm, Dry and Jaundice (negative)
Labs/Micro/Reports
Lab Data
11/18/23 04:13
11/18/23 04:13
[2023-11-18] MEDS: CORDARONE 518 MG IV (08:48)
[2023-11-18] MEDS: LASIX 40 MG IV (08:49)
--- NOTE | 2023-11-18 11:30 | PTCARENOTE ---
Stopped patient's lidocaine gtt per Dr. oMntoya. wanted him on gtt for 24 hours. Also stopped IVF. patient is eating, drinking, urinating.
--- NOTE | 2023-11-18 12:34 | PN.DE.MGMTRT ---
Insulin Management
- -
11/18/2023 Diabetes Management Consult
Patient admitted 11/15 with syncope, suspected v-tach s/p code 9. PMH include type 2 diabetes ~ 4 years, recent MO with EF 30%, CVA, HTN, HLD, cardiac cath 11/04. Prior to admission was taking glipizide 2.5 (reduced from 5 BID by primary) and
metformin 500 mg BID. Had been taking Jardiance but stopped ~ 2 weeks ago due to cost. A1C 8.5% 11/04, cr 1.3, eGFR >60.
Patient is awake alert, oriented able to discuss diabetes care, is at bedside. He immediately stated that he has a FSA account that he will purchase the Jardiance till he meets his $6,000 deductible. States 'I will do whatever it takes'.
Very motivated, very supportive.
Provided and instructed on use of Contour Next glucose monitor, preferred by his insurance; he was testing at home but with a different meter. Provided times to test and target glucose ranges.
Patient has been receiving Jardiance, glucose had trended up >200. Fasting this AM 135. Will resume glipizide 2.5 mg BID, first dose with dinner. Will continue to hold metformin in the event he would need additional studies.
Written instructions and my number provided. I did review dietary guidelines but will have dietitian see patient also.
Diabetes History
- -
Type of Diabetes: 2
Pre-Admission Diabetes Regimen
11/18/23
04:13
Creatinine 1.3
Insulin Pump Settings
IP Diabetes Regimen
11/17/23 11/17/23 11/18/23
16:23 21:44 04:13
Glucose 170 H
POC Glucose 200 H 228 H
11/18/23
07:36
Glucose
POC Glucose 135 H
Patient Education
[2023-11-18] MEDS: NSS IV (12:58)
--- NOTE | 2023-11-18 13:33 | W.PN.HOSP.TC ---
Today's Communication/Plan
-
continue amio drip
continue BB
Assessment / Plan
Assessment / Plan
Assessment:
Unprovoked syncope
Confirmed V-Tach, refractory with VT storm
- Coded 11/16 at 1 AM and shocked; the next day with NSVT and R on T, PVCs
- s/p dual chamber ICD (St Taiwo 11/17/23) placed for secondary prevention
- now on Amiodarone drip
- weaned off Lidocaine drip
- continue BB
- keep K>4, Mg >2
- Echo pending
Recent NSTEMI
- s/p LHC: severe CAD with occlusion of mid LAD and prox RCA. subsequent stress test showed with large areas of infarct and small olena-infarct ischemia
- continue ASA/Statin/BB
- trop likely elevated from prior OR, will trend for now
Ischemic cardiomyopathy
acute HFrEF
- IV Lasix x 1; holding PO Lasix
- continue Jardiance
- continue ARB
- continue BB
Hx of CVA - continue ASA/Statin
Type 2 DM
- continue Jardiance/glipizide
- hold MFM
- SSI
- recent A1c: 8.5%
HLD - statin
DVT ppx: SC heparin
Code: Full
Total Critical Care Time 41 minutes. I was immediately available to the patient and staff. I personally examined, reviewed labs, diagnostic images/reports, interpretations, treatment plans, discussed patient care with other providers and family
or caregivers (if patient is unable to make decisions), entered orders as appropriate and documented the medical record.
Anticipated Discharge: > 48 hours
Subjective/Interval History
-
Date of Service: November 18, 2023
Lidocaine weaned off
continues on Amio drip
Objective Data
-
Labs:
Laboratory Results
11/18/23
04:13
WBC 14.0 H
Hgb 11.7 L
Hct 34.8 L
Plt Count 446 H
Sodium 132 L
Potassium 5.2 H
Chloride 104
Carbon Dioxide 18 L
BUN 36 H
Creatinine 1.3
Glucose 170 H
Calcium 9.5
Vital Signs:
Vital Signs
Temp Pulse Resp BP Pulse Ox
98.6 F 86 21 89/63 95
11/18/23 11:35 11/18/23 12:00 11/18/23 12:00 11/18/23 12:00 11/18/23 12:00
I&O
11/17/23 11/18/23 11/19/23
06:59 06:59 06:59
Intake Total 508.2 / 621.5 2525.9 / 2637.6 496.9 / 496.9
Output Total 900 / 900 550 / 550
Balance 508.2 / 621.5 1625.9 / 1737.6 -53.1 / -53.1
Physical Exam
-
General: No Apparent Distress
HEENT: Normocephalic, Atraumatic and Other (Left chest wall defib)
Respiratory: Negative Wheezes or Rales
Cardiac: Regular Rhythm and S1/S2
GI: Soft
Genito-urinary: No Costovertebral Tender
Musculoskeletal: No Edema
Neuro: AO x 3
Psych: Calm
Data Reviewed
-
Critical Care Time (in minutes): 41
Labs: Labs Reviewed by me
[2023-11-18] MEDS: NOVOLOG FLEXPEN-LOW RESISTANCE 1 UNITS SC (14:21)
[2023-11-18 14:32] LABS: Glucose - Point of Care 187 mg/dl (70-99)
--- NOTE | 2023-11-18 15:19 | CM ---
CM following re: discharge planning.
Discussed in Rounds, reviewed pt's chart, met with t. Per Rounds meeting, pt remains on 8L midflow, saturating 93-94%, continue supportive care.
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
D/C plan: home with anticipated no needs. Family to transport at discharge.
CM will follow with discharge plan updates as hospitalization progresses
[2023-11-18] MEDS: GLUCOTROL 2.5 MG PO (17:11)
--- NOTE | 2023-11-18 17:52 | PTCARENOTE ---
Moved patient's amio gtt to new site, left peripheral IV.
[2023-11-18 18:37] LABS: Glucose - Point of Care 126 mg/dl (70-99)
[2023-11-18] MEDS: NOVOLOG FLEXPEN-LOW RESISTANCE SC (18:39)
--- NOTE | 2023-11-18 20:00 | PTCARENOTE ---
rec`d pt at 1900 laying in bed, AAOx3, very pleasant. afebrile. + pulses, trace edema bilateral hands- elevated on pillows. AICD in place. setting DDDR 85-130. Hr currently 85 on monitor. pt has original post op dressing. dressing c/d/i. rt FA 20,
LT AC 20, LT w 20. amio gtt at 0.5 continued. 8L midflow satting at 95%. clear lung sounds. 2200 diabetic diet. pt uses urinal. call amezquita in reach, safe environment maintained.
[2023-11-18] MEDS: TOPROL XL 25 MG PO (21:10)
[2023-11-19] VITALS (25 sets, daily range): BP systolic 89–134; BP diastolic 55–83; BMI 28.3
--- NOTE | 2023-11-19 | PTCARENOTE ---
pt reassessed. no changes in pt assessment. call amezquita in reach
[2023-11-19 03:35] LABS: Hematocrit 32.3 % (39.0-52.0); Hemoglobin 11.2 g/dL (13.0-18.0); Mean Corp Hgb Conc. 34.7 g/dL (33.0-37.0); Mean Corpuscular Hgb 29.6 pg (27.0-31.0); Mean Corpuscular Volume 85.4 fL (80.0-94.0); Mean Platelet Volume 9.5 fL (7.4-10.4); Platelet Count 384 10^3/uL (130-400); Red Blood Cell Count 3.78 10^6/uL (4.70-6.10); Red Cell Dist. Width 13.2 % (11.5-14.5); White Blood Cell Count 13.6 10^3/uL (4.8-10.8)
[2023-11-19 04:07] LABS: Blood Urea Nitrogen 35 mg/dl (9-20); Calcium 9.1 mg/dl (8.4-10.2); Carbon Dioxide 22 mmol/L (22-30); Chloride 104 mmol/L (98-107); Estimated Creatinine Clearance 55 ml/min; Glucose 98 mg/dl (70-99); Magnesium 2.1 mg/dl (1.6-2.3); Phosphorus 4.1 mg/dl (2.5-4.5); Potassium 4.3 mmol/L (3.5-5.1); Sodium 134 mmol/L (135-145); eGFR > 60.00
[2023-11-19] MEDS: NOVOLOG FLEXPEN-LOW RESISTANCE SC ×2 (07:40→14:27)
--- NOTE | 2023-11-19 07:47 | PN.DE.MGMTRT ---
Insulin Management
- -
11/19/2023 Diabetes Management Consult
Patient admitted 11/15 with syncope, suspected v-tach s/p code 9. PMH include type 2 diabetes ~ 4 years, recent TN with EF 30%, CVA, HTN, HLD, cardiac cath 11/04. Prior to admission was taking glipizide 2.5 (reduced from 5 BID by primary) and
metformin 500 mg BID. Had been taking Jardiance but stopped ~ 2 weeks ago due to cost. A1C 8.5% 11/04, cr 1.3, eGFR >60.
Patient is awake alert, oriented , sitting up in chair, able to discuss diabetes care, is at bedside.
His Glipizide was resumed yesterday, received 1st dose at dinner, No HS glucose obtained, 3AM blood sugar was 98(V), FBG 141(finger stick).
Will make no changes to current regimen, Cont Jardiance 10mg daily and Glipizide 2.5 mg BID. Metformin remains on hold- can resume at discharge.
Pt states that he has a FSA account that he will pay the 1 time cost of $600 for Jardiance till he meets his $6,000 deductible, which is happening soon, then his co-pay goes down to $10/month. He is very motivated and is very supportive.
Pt received instructions on use of Contour Next glucose monitor yesterday. Discussed importance of checking blood sugars 2x/day to assess food/medication effect on his BS, reducing CHO intake, being active and losing weight. Provided information and
handout on outpt education classes.
Will need RX for test strips and lancets for the Contour Next Ez glucometer, testing 2x/day at discharge.
All questions and concerns were addressed and answered to their satisfaction.
Diabetes History
- -
Type of Diabetes: 2 requiring insulin
Pre-Admission Diabetes Regimen
11/19/23
03:24
Creatinine 1.2
Insulin Pump Settings
IP Diabetes Regimen
11/18/23 11/18/23 11/18/23
07:36 14:20 18:25
Glucose
POC Glucose 135 H 187 H 126 H
11/19/23
03:24
Glucose 98
POC Glucose
Patient Education
--- NOTE | 2023-11-19 07:47 | W.PN.CD ---
Today's Communication / Plan
-
- IV lasix for diuresis
- Switch Amiodarone to PO
- OK to transfer to IVU
- Continue atrial pacing rate at 85 bpm for now.
Impression / Plan
-
62-year-old male with recently discovered coronary artery disease (catheterization on 11/05/2023 revealed mid LAD occlusion and chronic total proximal RCA occlusion with left to right collaterals; medical management due to late presentation anterior
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 The patient's
syncopal event was current sertraline for cardiac arrhythmia; he was just sitting at his desk at home and lost consciousness. The patient was admitted for observation and developed refractory VT whereby the patient was coded and shocked 4 times in
total as per ACLS protocol. The patient is currently lucid and did not have to be intubated. He is currently on an amiodarone drip; he did receive lidocaine 70 mg in addition to amiodarone 300 mg, epinephrine, bicarbonate, calcium, and magnesium
during the code. The patient has reproducible chest pain due to compressions. He denies shortness of breath. His and 2 sons are currently at bedside in the ICU. The patient has had no recurrence of VT on telemetry in the ICU since being on
the amiodarone drip.
Refractory VT:
-VT storm associated with short coupled PVC and start of Torsades with sustained VT with monomorphic pattern
-Recent infarct - LAD territory - ectopy with reperfusion and scar based reentry to sustain
- s/p dual chamber ICD (St Taiwo 11/17/23)
- atrial pacing at 85 bpm - suppressing PVC with overdrive pacing
- No more VT since the atrially paced at 85 bpm
- Will switch Amiodarone gtt to 400 mg TID
- Off the Lidocaine gtt after 24 hours. Can consider adding mexiletine if VT noted.
- Continue Toprol-XL 25 mg daily. likely would like to increase if BP allows.
- Continue cardiac monitor technician in the ICU.
- ECHO 11/18/23 - LVEF 25% with anteroseptal and inferior hypokinesis and lateral wall lety - unchanged from 11/04/23
Coronary artery disease (catheterization on 11/05/2023 revealed mid LAD occlusion and chronic total proximal RCA occlusion with left to right collaterals; medical management due to late presentation anterior NV):
-Continue aspirin, rosuvastatin, and metoprolol succinate.
Troponin elevation:
-Secondary to acute nonischemic myocardial injury in the setting of tachycardia/defibrillatory shocks.
Acute HFrEF/ICM (EF 25-30%):
-Continue Toprol-XL and losartan.
-Will resume Jardiance once stable
Pulm Edema
-hyopxic resp failure with increasing oxygen requirements.
-CXR shows pulm / interstitial edema
- Lasix as tolerated based on his BP
- start lasix 40 mg IV QD.
- Replete K and Mg accordingly (K is 4.3 now and acceptable. Goal is to keep > 4.5)
Hypertension:
-Blood pressure is controlled on current management.
Hyperlipidemia:
-Continue rosuvastatin.
NIDDM:
-Hemoglobin A1c 8.5%.
-Management as per primary team; on metformin, glipizide, and Jardiance at home.
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
-Continue aspirin and statin; no occult A-fib was noted on heart monitor.
Chronic cigarette use (approximately [id number]; quit 04/02/2023)
-Patient should continue to refrain from tobacco use.
Physical Exam
Vital Signs/Labs
Vital Signs
Temp Pulse Resp BP Pulse Ox
98.6 F 86 18 112/76 98
11/19/23 04:00 11/19/23 06:00 11/19/23 06:00 11/19/23 06:00 11/19/23 06:00
11/18/23 11/19/23 11/20/23
06:59 06:59 06:59
Actual Weight 74.1 kg 74.6 kg
11/19/23 03:24
11/19/23 03:24
PT 13.8 Sec (11.4-14.6) 11/17/23 01:45
INR 1.08 11/17/23 01:45
APTT 29.3 Sec (23.4-35.0) 11/17/23 01:45
Magnesium 2.1 mg/dl (1.6-2.3) 11/19/23 03:24
11/18/23
04:13
Hvt-T-Zwwvcafrlsg Pept 6700
LAB Results
11/16/23 11/17/23 11/17/23
16:49 01:00 01:45
Troponin I 0.088 H* Cancelled 0.078 H*
11/17/23
05:33
Troponin I 0.178 H* D
Physical Exam
Constitutional: No acute distress and Comfortable
EENT: Anicteric and Moist mucous membranes
Cardiovascular: Rhythm & rate is regular, Pedal edema present, JVD present and Systolic murmur present
Respiratory: Respiratory effort normal and Crackles Present
GI: Soft and Non tender
Neuro/Psych: Alert, Oriented and AO x 3
Other: Cardiac Device Site
Data Reviewed
-
Date of Service: November 19, 2023
Medical Decision Making: Reviewed Test Results, Independent Historian Assessment and Test Interpretation
EKG: Tracing Personally Visualized and interpreted
Echo: Tracing Personally Visualized and interpreted
X-Ray/CT/US/MRI/NUC/PET: Image Personally Visualized and interpreted
Labs: Labs Reviewed by me
Old Records: Reviewed
Critical Care Time (in minutes): 32
[2023-11-19 07:49] LABS: Glucose - Point of Care 141 mg/dl (70-99)
[2023-11-19] MEDS: COZAAR 12.5 MG PO (08:00)
[2023-11-19] MEDS: GLUCOTROL 2.5 MG PO ×2 (08:00→16:02)
[2023-11-19] MEDS: PACERONE 400 MG PO ×3 (08:00→21:02)
[2023-11-19] MEDS: ASPIR LOW (ENTERIC COATED) 81 MG PO (08:00)
--- NOTE | 2023-11-19 08:00 | PTCARENOTE ---
Received patient from overnight caregiver RN. Patient AAOx3, on 6L midflow, lungs clear, slightly diminished in base. A-paced on monitor, left arm immobilizer remains on post AICD placement. trace edema to upper extremities. Amio gtt infusing into left
peripheral IV. will transition to PO. Patient has been ordering meals, good appetite, blood sugar 141 this morning, no sliding scale coverage required. using urinal at bedside. Will review orders, plan to get patient OOB, and ambulating.
[2023-11-19] MEDS: HEPARIN 5000 UNITS SC ×3 (08:01→23:03)
[2023-11-19] MEDS: JARDIANCE 10 MG PO (08:01)
[2023-11-19] MEDS: CRESTOR 20 MG PO (08:01)
--- NOTE | 2023-11-19 08:08 | W.PN.INTV ---
Today's Communication / Plan
Recommendations
A-paced
PO amio load as per cardiology
Wean down O2 flow rate to maintain SpO2 >90-94%
Lasix 40mg IVP x1 today - keep net negative as tolerated
Outpatient pulmonary follow up
Transfer out of ICU to IVU. Implementation Manager/Pulmonary service will now sign off. Please reconsult if there are any additional questions/concerns, or if patient's respiratory status deteriorates.
Assessment
-
Assessment: 62-year-old male with a past medical history of recent late�presentation anterior ND with severe CAD, ICM/HFrEF, history of embolic CVA due to PFO (patient declined closure per documentation from cardiology), DM type II, dyslipidemia,
and former tobacco use disorder who presents with syncope. 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 He denies any head trauma. After about 1 minute he awoken and was back to his usual self. He was sweating and his family checked
his glucose but it was normal at 133. There was no preceding symptoms like shortness of breath or chest pain or lightheadedness. Also no seizure-like activity during or after episode. Patient was recently hospitalized here from 11/03
due to a late anterior ND. Nuclear stress test at that time showed large perfusion defects with small olena-infarct ischemia. Coronary stenting and CT surgical revascularization was not recommended. Medical therapy was recommended. He was sent
home and says he has been feeling well since that time. In the ER he was having PVCs. Pt admitted to IVU where he developed sustained VT and was shocked with 200J and given epi due to hypotension. He required 4 shocks in total due to refractory
VT and given bicarb, calcium, magnesium, 70 mg lidocaine and also started on amiodarone. Patient never lost pulse. Also he was lucid after this event and did not need to be intubated. Patient transferred to the ICU for further care and critical
care services consulted for additional management/recommendations.
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
Impression:
#Refractory VT - likely due to known CAD - s/p BiV-ICD placement on 11/17/2023
#Hyperglycemia - resolved
#Acute respiratory failure with hypoxia on supplemental oxygen
#Acute cardiogenic pulmonary edema
#Elevated troponin (initial troponin 0.088) - likely due to demand ischemia
#Hx of CAD
#Hx of embolic CVA with Hx of PFO
#Former tobacco use disorder (quit 03/2023 with [id number] Hx)
#ICM/acute HFrEF
Plan:
- Went down for BiV-ICD placement on 11/16 --> currently A-pacing at 85bpm, suppressing PVCs with overdrive pacing
- s/p lidocaine gtt
- Repeat TTE from yesterday shows LVEF 25-30% with apical akinesis; normal RV size and function
- Continue ASA and high-intensity statin
- Goal LDL<70 (85 on 11/05/2023)
- Goal BG 140-180mg/dL --> consult diabetic HEADEND TECHNICIAN for insulin management and education
- Stereoplotter Operator consulted
- Maintain SpO2 >94%
- Maintain MAP>65
- Replete electrolytes with K>4, Mg>2
- Continue amio PO load as per cardiology
- Toprol-XL 25mg HS - raise dose as BP allows
- Ok to remove Zoll pads given he has had no arrhythmias for last 48 hrs
- Maintain euglycemia as stated above
- telehealth nurse educator consulted
- prn nebulized bronchodilators
- Incentive spirometer
- Give lasix again today (40mg IVP x1) given continued acute pulmonary edema; trend UOP, and maintain net negative fluid balance as BP tolerates
- He qualifies for lung cancer screening via LDCT chest given his [id number] history of smoking and quit in March 2023 - this can be discussed with us in the office. Also, there were no significant nodule seen on CTA chest from 11/05/2023. He
did however have bilateral opacities likely due to acute pulmonary edema +/- pneumonia seen on the CTA chest, hence he should have repeat imaging in about 6 weeks from the date of that CTA chest (mid-November 2023)
- Also, given that he will likely be on amiodarone long-term, he should follow with us in office for bi-annual spirometry to trend his FVC
- DVT ppx: HSQ
Dispo: Transfer out of ICU to IVU. Implementation Manager/Pulmonary service will now sign off � as stated above, I will arrange for outpatient office follow-up with me. Thank you for allowing us to be involved in the care of this patient. Please reconsult
if there are any additional questions/concerns, or if patient's respiratory status deteriorates.
Total time spent today was 55 minutes for this encounter. Time includes reviewing laboratory test/imaging results, reviewing pertinent medical records, obtaining and reviewing medical history, performing an appropriate exam, ordering medications,
tests and procedures. Time also includes documentation of this encounter, coordinating patient care and communicating with other healthcare professionals. Total time does not include separately billed tests performed on this date of service.
Data:
CXR 11-18-2023:
1. SEVERE ACUTE INTERSTITIAL CARDIOGENIC PULMONARY EDEMA without definitive change from 11/17/2023.
2. Small bilateral pleural effusions.
3. Left-sided AICD in place.
CXR 11-17-2023: Borderline cardiomegaly with mild-moderate pulmonary edema
TTE 11-04-2023:
Severely reduced left ventricular systolic function. LV ejection fraction is
25-30% by visual assessment.
There are regional wall motion abnormalities concerning for severe CAD (below)
Mild mitral regurgitation.
Color flow pattern suggestive of PFO.
Compared to prior study of Mar 2023, LV dysfunction is new.
Subjective Dataa
Subjective Data
Date of Service:
Date of Service: November 19, 2023
Chief Complaint: Implementation Manager Follow Up
Subjective:
Patient seen and evaluate this morning. No arrhythmias overnight. Still remains A-paced at 85bpm. Off amio gtt and now on PO load. He is on 2L/min NC this AM.
Review of Systems
General: Other (Negative unless mentioned above)
Objective Data
Data Reviewed
Vital Signs / I&O / Oxygen:
Vital Signs
Temp Pulse Resp BP Pulse Ox
97.2 F 85 19 97/59 95
11/19/23 07:55 11/19/23 08:17 11/19/23 08:17 11/19/23 08:17 11/19/23 08:53
Intake and Output
11/18/23 11/19/23 11/20/23
06:59 06:59 06:59
Intake Total 2525.9 / 2637.6 780.8 / 797.5 376.7 / 376.7
Output Total 900 / 900 1750 / 1750
Balance 1625.9 / 1737.6 -969.2 / -952.5 376.7 / 376.7
SaO2 95
Nasal Cannula flow liters per 2
minute
Physical Exam
General: Respiratory Distress (Negative) and Comfortable
HEENT: Normocephalic and Anicteric
Cardiovascular: S1-S2 and Peripheral Edema (negative)
Respiratory: Wheeze (negative), Crackles (Bilaterally), Rhonchi (negative) and Non-Labored Respirations
GI: Soft, Non Distended, Non Tender and Normal Bowel Sounds
Neurology: AO x 3 and Tremors (negative)
Skin: Warm, Dry and Jaundice (negative)
Labs/Micro/Reports
Lab Data
11/19/23 03:24
11/19/23 03:24
--- NOTE | 2023-11-19 08:52 | PTCARENOTE ---
Patient OOB to chair with standby assist. Now on room air, placed back on 2L nasal cannula and encouraged deep breathing
[2023-11-19] MEDS: LASIX 40 MG IV (11:39)
[2023-11-19] MEDS: KCL 40 MEQ PO (11:39)
--- NOTE | 2023-11-19 12:49 | PTCARENOTE ---
Patient remains OOB in chair, will ring for blood sugar check, continues to have no pain. awaiting cardiology.
[2023-11-19 13:52] LABS: Glucose - Point of Care 110 mg/dl (70-99)
--- NOTE | 2023-11-19 14:13 | CM ---
CM following re: discharge planning.
Discussed in Rounds, reviewed pt's chart, met with t. Per Rounds meeting, on 2L NC of O2, continue supportive care.
Pt lives with spouse and a son in a 2SH, has 2 supportive children and pt is independent in all areas [employer] MEN.
D/C plan: home with anticipated no needs. Family to transport at discharge.
CM will follow with discharge plan updates as hospitalization progresses
--- NOTE | 2023-11-19 15:15 | W.PN.HOSP.TC ---
Today's Communication/Plan
-
tx to IVU
Assessment / Plan
Assessment / Plan
Assessment:
Unprovoked syncope
Confirmed V-Tach, refractory with VT storm
- Coded 11/16 at 1 AM and shocked; the next day with NSVT and R on T, PVCs
- s/p dual chamber ICD (St Taiwo 11/17/23) placed for secondary prevention
- now transitioned to PO Amio load
- continue BB
- keep K>4, Mg >2
- Echo: Severely reduced left ventricular systolic function. LV ejection fraction is 25-30% by visual assessment. There are regional wall motion abnormalities concerning for severe CAD (below). Mild mitral regurgitation.
Color flow pattern suggestive of PFO. Compared to prior study of Mar 2023, LV dysfunction is new.
Recent NSTEMI
- s/p LHC: severe CAD with occlusion of mid LAD and prox RCA. subsequent stress test showed with large areas of infarct and small olena-infarct ischemia
- continue ASA/Statin/BB
- trop likely elevated from prior LA, will trend for now
Ischemic cardiomyopathy
acute HFrEF
- IV Lasix prn to keep negative fluid balance
- hold PO Lasix
- continue Jardiance
- continue ARB
- continue BB
Hx of CVA - continue ASA/Statin
Type 2 DM
- continue Jardiance/glipizide
- hold MFM until discharge
- SSI
- recent A1c: 8.5%
- GIS GEOGRAPHER team following; education provided
HLD - statin
DVT ppx: SC heparin
Code: Full
Total Critical Care Time 40 minutes. I was immediately available to the patient and staff. I personally examined, reviewed labs, diagnostic images/reports, interpretations, treatment plans, discussed patient care with other providers and family
or caregivers (if patient is unable to make decisions), entered orders as appropriate and documented the medical record.
Tx: to IVU
Anticipated Discharge: > 48 hours
Subjective/Interval History
-
Date of Service: November 19, 2023
improving O2 needs, on 2L/min
no arrhythmia overnight
Objective Data
-
Labs:
Laboratory Results
11/19/23
03:24
WBC 13.6 H
Hgb 11.2 L
Hct 32.3 L
Plt Count 384
Sodium 134 L
Potassium 4.3
Chloride 104
Carbon Dioxide 22
BUN 35 H
Creatinine 1.2
Glucose 98
Calcium 9.1
Vital Signs:
Vital Signs
Temp Pulse Resp BP Pulse Ox
97.5 F 86 19 129/83 97
11/19/23 11:51 11/19/23 14:00 11/19/23 14:00 11/19/23 14:00 11/19/23 14:00
I&O
11/18/23 11/19/23 11/20/23
06:59 06:59 06:59
Intake Total 2525.9 / 2637.6 780.8 / 797.5 376.7 / 376.7
Output Total 900 / 900 1750 / 1750 900 / 900
Balance 1625.9 / 1737.6 -969.2 / -952.5 -523.3 / -523.3
Physical Exam
-
General: No Apparent Distress
HEENT: Normocephalic and Atraumatic
Respiratory: Crackles; Negative Wheezes
Cardiac: Regular Rhythm and S1/S2
GI: Soft
Genito-urinary: No Costovertebral Tender
Neuro: AO x 3
Hematologic / Lymphatic: No Lymphadenopathy
Psych: Calm
Data Reviewed
-
Critical Care Time (in minutes): 40
Labs: Labs Reviewed by me
--- NOTE | 2023-11-19 16:46 | PTCARENOTE ---
No changes in patient's assessment. Patient had episode around 1400 where he stated he felt 'weird'. [place] like he was going to start to be dizzy. Elevated legs, checked, blood pressure, blood sugar and obtained EKG. No neurological changes and
assisted patient into bed. Patient was seen at bedside by Dr. Duran, no further orders. Patient also stated he feels very anxious, has been reluctant to move out of bed, feels apprehensive about going home.
[2023-11-19] MEDS: NOVOLOG FLEXPEN-LOW RESISTANCE 1 UNITS SC (18:11)
[2023-11-19 18:30] LABS: Glucose - Point of Care 159 mg/dl (70-99)
--- NOTE | 2023-11-19 20:00 | PTCARENOTE ---
Received patient at 1900. Pt. awake, alert, and oriented. Anxious. Denies pain/discomfort. Afebrile. Heart rhythm 100% A Paced. Blood pressure normotensive. Currently on 2L nasal cannula. Lungs sound diminished. Ordered a cholesterol lowering diet,
good appetite. Voiding in urinal without issue. Skin as documented. Discussed plan of care with patient. Vital signs stable at this time.
[2023-11-19] MEDS: TOPROL XL 25 MG PO (21:03)
[2023-11-20] VITALS (20 sets, daily range): BP systolic 95–123; BP diastolic 64–86; BMI 27.6
--- NOTE | 2023-11-20 00:12 | PTCARENOTE ---
Pt. assessment unchanged. at bedside. Pt. denies pain/discomfort. Vital signs stable at this time.
[2023-11-20 05:24] LABS: Hematocrit 36.4 % (39.0-52.0); Hemoglobin 12.1 g/dL (13.0-18.0); Mean Corp Hgb Conc. 33.2 g/dL (33.0-37.0); Mean Corpuscular Hgb 29.6 pg (27.0-31.0); Mean Platelet Volume 9.7 fL (7.4-10.4); Platelet Count 358 10^3/uL (130-400); Red Blood Cell Count 4.09 10^6/uL (4.70-6.10); Red Cell Dist. Width 12.9 % (11.5-14.5); White Blood Cell Count 11.2 10^3/uL (4.8-10.8)
--- NOTE | 2023-11-20 05:30 | PTCARENOTE ---
Pt. assessment unchanged. AM labs drawn. Vital signs stable at this time.
[2023-11-20 05:49] LABS: Blood Urea Nitrogen 33 mg/dl (9-20); Calcium 9.3 mg/dl (8.4-10.2); Carbon Dioxide 24 mmol/L (22-30); Chloride 104 mmol/L (98-107); Estimated Creatinine Clearance 60 ml/min; Glucose 109 mg/dl (70-99); Potassium 4.7 mmol/L (3.5-5.1); Sodium 135 mmol/L (135-145); eGFR > 60.00
[2023-11-20 07:33] LABS: Glucose - Point of Care 100 mg/dl (70-99)
[2023-11-20] MEDS: NOVOLOG FLEXPEN-LOW RESISTANCE SC ×3 (07:43→18:01)
--- NOTE | 2023-11-20 07:55 | W.PN.CD ---
Today's Communication / Plan
-
-Interrogated the device, reprogrammed it to 70 bpm.
-AV delay decreased for sensed AV delay and increased for paced AV delay currently a sensed V sensed
-Continue IV Lasix for diuresis.
Impression / Plan
-
62-year-old male with recently discovered coronary artery disease (catheterization on 11/05/2023 revealed mid LAD occlusion and chronic total proximal RCA occlusion with left to right collaterals; medical management due to late presentation anterior
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 The patient's
syncopal event was current sertraline for cardiac arrhythmia; he was just sitting at his desk at home and lost consciousness. The patient was admitted for observation and developed refractory VT whereby the patient was coded and shocked 4 times in
total as per ACLS protocol. The patient is currently lucid and did not have to be intubated. He is currently on an amiodarone drip; he did receive lidocaine 70 mg in addition to amiodarone 300 mg, epinephrine, bicarbonate, calcium, and magnesium
during the code. The patient has reproducible chest pain due to compressions. He denies shortness of breath. His and 2 sons are currently at bedside in the ICU. The patient has had no recurrence of VT on telemetry in the ICU since being on
the amiodarone drip.
Refractory VT:
-VT storm associated with short coupled PVC and start of Torsades with sustained VT with monomorphic pattern
-Recent infarct - LAD territory - ectopy with reperfusion and scar based reentry to sustain
- s/p dual chamber ICD (St Taiwo 11/17/23)
- atrial pacing at 85 bpm - suppressing PVC with overdrive pacing
- No more VT since the atrially paced at 85 bpm -will plan to decrease atrial pacing rate to 70 bpm
- On Amiodarone gtt to 400 mg TID
- Off the Lidocaine gtt after 24 hours. Can consider adding mexiletine if VT noted.
- Continue Toprol-XL 25 mg daily. likely would like to increase if BP allows.
- Continue gambling monitor in the ICU.
- ECHO 11/18/23 - LVEF 25% with anteroseptal and inferior hypokinesis and lateral wall lety - unchanged from 11/04/23
Coronary artery disease (catheterization on 11/05/2023 revealed mid LAD occlusion and chronic total proximal RCA occlusion with left to right collaterals; medical management due to late presentation anterior [place]):
-Continue aspirin, rosuvastatin, and metoprolol succinate.
Troponin elevation:
-Secondary to acute nonischemic myocardial injury in the setting of tachycardia/defibrillatory shocks.
Acute HFrEF/ICM (EF 25-30%):
-Continue Toprol-XL and losartan.
-Will resume Jardiance once stable
Pulm Edema
-hyopxic resp failure with increasing oxygen requirements.
-CXR shows pulm / interstitial edema
- Lasix as tolerated based on his BP
- start lasix 40 mg IV QD.
- Replete K and Mg accordingly (K is 4.3 now and acceptable. Goal is to keep > 4.5)
Hypertension:
-Blood pressure is controlled on current management.
Hyperlipidemia:
-Continue rosuvastatin.
NIDDM:
-Hemoglobin A1c 8.5%.
-Management as per primary team; on metformin, glipizide, and Jardiance at home.
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
-Continue aspirin and statin; no occult A-fib was noted on heart monitor.
Chronic cigarette use (approximately [id number]; quit 04/02/2023)
-Patient should continue to refrain from tobacco use.
Physical Exam
Vital Signs/Labs
Vital Signs
Temp Pulse Resp BP Pulse Ox
98.2 F 93 19 117/78 98
11/20/23 04:00 11/20/23 06:00 11/20/23 06:00 11/20/23 06:00 11/20/23 06:00
11/19/23 11/20/23 11/21/23
06:59 06:59 06:59
Actual Weight 74.6 kg 72.8 kg
11/20/23 05:13
11/20/23 05:13
PT 13.8 Sec (11.4-14.6) 11/17/23 01:45
INR 1.08 11/17/23 01:45
APTT 29.3 Sec (23.4-35.0) 11/17/23 01:45
Magnesium 2.1 mg/dl (1.6-2.3) 11/19/23 03:24
11/18/23
04:13
Gom-D-Htcenvxmvcf Pept 6700
Physical Exam
Constitutional: No acute distress and Comfortable
EENT: Anicteric and Moist mucous membranes
Cardiovascular: Rhythm & rate is regular, JVD present and Systolic murmur present
Respiratory: Respiratory effort normal and Crackles Present
GI: Soft, Non tender and Normal bowel sounds
Neuro/Psych: Alert, Oriented and AO x 3
Data Reviewed
-
Date of Service: November 20, 2023
Medical Decision Making: Reviewed Test Results, Tests Ordered and Independent Historian Assessment
EKG: Tracing Personally Visualized and interpreted
Echo: Report Reviewed by me
X-Ray/CT/US/MRI/NUC/PET: Image Personally Visualized and interpreted
Medical Tests (PFT, Pathology etc): Image Personally Visualized and interpreted
Labs: Labs Reviewed by me
Old Records: Reviewed
Critical Care Time (in minutes): 32
[2023-11-20] MEDS: PACERONE 400 MG PO ×3 (08:00→22:43)
[2023-11-20] MEDS: CRESTOR 20 MG PO (08:01)
[2023-11-20] MEDS: ASPIR LOW (ENTERIC COATED) 81 MG PO (08:01)
[2023-11-20] MEDS: GLUCOTROL 2.5 MG PO ×2 (08:01→17:15)
[2023-11-20] MEDS: HEPARIN 5000 UNITS SC ×2 (08:02→17:06)
[2023-11-20] MEDS: COZAAR 12.5 MG PO (08:02)
[2023-11-20] MEDS: JARDIANCE 10 MG PO (08:03)
--- NOTE | 2023-11-20 09:35 | W.PN.HOSP.TC ---
Today's Communication/Plan
-
Continue with current treatment
Transfer to IVU
DC planning
Assessment / Plan
Assessment / Plan
Assessment:
Unprovoked syncope
Confirmed V-Tach, refractory with VT storm
- Coded 11/16 at 1 AM and shocked; the next day with NSVT and R on T, PVCs
- s/p dual chamber ICD ([employer] 11/17/23) placed for secondary prevention
- now transitioned to PO Amio load
- continue BB
- Echo: Severely reduced left ventricular systolic function. LV ejection fraction is 25-30% by visual assessment. There are regional wall motion abnormalities concerning for severe CAD (below). Mild mitral regurgitation.
Color flow pattern suggestive of PFO. Compared to prior study of Mar 2023, LV dysfunction is new.
Recent NSTEMI
- s/p LHC: severe CAD with occlusion of mid LAD and prox RCA. subsequent stress test showed with large areas of infarct and small olena-infarct ischemia
- continue ASA/Statin/BB
-Asymptomatic without chest pain
Ischemic cardiomyopathy
acute HFrEF
- IV Lasix prn to keep negative fluid balance
- hold PO Lasix
- continue Jardiance
- continue ARB
- continue BB
Hx of CVA - continue ASA/Statin
Type 2 DM
- continue Jardiance/glipizide
- hold MFM until discharge
- SSI
- recent A1c: 8.5%
- CREDIT RISK OFFICER team following; education provided
HLD - statin
DVT ppx: SC heparin
Code: Full
Tx: to IVU
DC home once stable from cardiology standpoint
Anticipated Discharge: 24 - 48 hours
Subjective/Interval History
-
Date of Service: November 20, 2023
No further syncope. Denies any chest pain other than pain from his insertion site of the ICD.
Denies shortness of breath. off of oxygen this morning.
Objective Data
-
Labs:
Laboratory Results
11/20/23
05:13
WBC 11.2 H
Hgb 12.1 L
Hct 36.4 L
Plt Count 358
Sodium 135
Potassium 4.7
Chloride 104
Carbon Dioxide 24
BUN 33 H
Creatinine 1.1
Glucose 109 H
Calcium 9.3
Vital Signs:
Vital Signs
Temp Pulse Resp BP Pulse Ox
98.2 F 86 19 117/71 98
11/20/23 04:00 11/20/23 08:02 11/20/23 06:00 11/20/23 08:02 11/20/23 06:00
I&O
11/19/23 11/20/23 11/21/23
06:59 06:59 06:59
Intake Total 780.8 / 797.5 1176.7 / 1176.7
Output Total 1750 / 1750 3200 / 3200
Balance -969.2 / -952.5 -2022.3 / -2022.3
Review of Systems
-
Constitutional: Denies Fever
Abdomen/GI: Denies Nausea or Vomiting
Neuro: Denies Dizzy
Physical Exam
-
General: No Apparent Distress
HEENT: Moist Mucous Membranes
Respiratory: Clear to Auscultation
Cardiac: Regular Rhythm and S1/S2
GI: Soft
Neuro: AO x 3
Data Reviewed
-
Labs: Labs Reviewed by me
--- NOTE | 2023-11-20 12:18 | PTCARENOTE ---
Update with Cardiology Dr Montoya at bedside. Pacer adjustment completed. Follow up vital sign trends ongoing. Assessment unchanged. Patient ambulated entire unit stable vitals throughout walk. Continue to follow up plan of cares.
[2023-11-20 12:31] LABS: Glucose - Point of Care 94 mg/dl (70-99)
--- NOTE | 2023-11-20 15:36 | PTCARENOTE ---
Updated report and assessment with IVU team. Continue follow up supportive cares, emotional support, and goal oriented teaching. Family updated transfer plan to IVU.
[2023-11-20 17:20] LABS: Glucose - Point of Care 126 mg/dl (70-99)
--- NOTE | 2023-11-20 17:39 | PTCARENOTE ---
Pt received from ICU at 1600. Pt alert and oriented. Denies any pain or sob. SR on the monitor, rate in the 70's. Left chest incision with aquacell intact. Ambulating in the hallway with his . No c/o offered.
[2023-11-20] MEDS: TOPROL XL 25 MG PO (22:44)
[2023-11-20 22:45] LABS: Glucose - Point of Care 110 mg/dl (70-99)
[2023-11-21] MEDS: HEPARIN 5000 UNITS SC ×3 (00:08→15:44)
--- NOTE | 2023-11-21 00:46 | PTCARENOTE ---
Denied complaints of pain or discomfort earlier when questioned. at bedside and going to stay the nite. Left chest wall ICD site wnl. SR and A-pacing on the monitor, rate in the 70's. Sleeping at present.
[2023-11-21 04:44] VITALS: BP 104/68
[2023-11-21 05:25] LABS: Hematocrit 35.1 % (39.0-52.0); Hemoglobin 11.8 g/dL (13.0-18.0); Mean Corp Hgb Conc. 33.6 g/dL (33.0-37.0); Mean Corpuscular Hgb 29.1 pg (27.0-31.0); Mean Corpuscular Volume 86.5 fL (80.0-94.0); Mean Platelet Volume 9.8 fL (7.4-10.4); Platelet Count 373 10^3/uL (130-400); Red Blood Cell Count 4.06 10^6/uL (4.70-6.10); Red Cell Dist. Width 12.9 % (11.5-14.5); White Blood Cell Count 10.1 10^3/uL (4.8-10.8)
[2023-11-21 05:55] LABS: Blood Urea Nitrogen 32 mg/dl (9-20); Calcium 9.4 mg/dl (8.4-10.2); Carbon Dioxide 25 mmol/L (22-30); Chloride 104 mmol/L (98-107); Estimated Creatinine Clearance 60 ml/min; Glucose 95 mg/dl (70-99); Potassium 4.7 mmol/L (3.5-5.1); Sodium 135 mmol/L (135-145); eGFR > 60.00
[2023-11-21 07:11] LABS: Glucose - Point of Care 87 mg/dl (70-99)
[2023-11-21] MEDS: NOVOLOG FLEXPEN-LOW RESISTANCE SC ×2 (07:41→12:16)
[2023-11-21 07:58] VITALS: BP 105/61
[2023-11-21] MEDS: CRESTOR 20 MG PO (08:34)
[2023-11-21] MEDS: GLUCOTROL 2.5 MG PO (08:34)
[2023-11-21] MEDS: ASPIR LOW (ENTERIC COATED) 81 MG PO (08:35)
[2023-11-21] MEDS: COZAAR 12.5 MG PO (08:35)
[2023-11-21] MEDS: PACERONE 400 MG PO ×2 (08:37→15:44)
[2023-11-21] MEDS: JARDIANCE 10 MG PO (08:37)
--- NOTE | 2023-11-21 09:10 | PTCARENOTE ---
Addendum entered by Stephanie Miles RN 11/21/23 13:09:
Dr. Garzon saw patients arm, po antibiotics ordered and given.
Original Note:
received patient from night RN. patient sitting up in chair c/o left forearm pain, swollen, reddened, warm to touch, warm compress applied and IV team called. they will be over to look at site although it has been greater than 24 hours since IV
amiodarone drip D/C'd. no temp. monitor shows Apaced, VSS. LCW Acuseal intact, no swelling, no oozing, no pain at site. at bedside.
--- NOTE | 2023-11-21 09:40 | W.PN.CD ---
Today's Communication / Plan
-
-Decrease amiodarone to 200 mg twice a day at discharge
-Increase metoprolol to 25 mg twice a day at discharge
-Lasix 40 mg p.o. once a day along with potassium 40 mEq every day
-Follow-up with cardiology in device clinic in 1 week
-Stable for discharge from cardiac standpoint.
Impression / Plan
-
62-year-old male with recently discovered coronary artery disease (catheterization on 11/05/2023 revealed mid LAD occlusion and chronic total proximal RCA occlusion with left to right collaterals; medical management due to late presentation anterior
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 The patient's
syncopal event was current sertraline for cardiac arrhythmia; he was just sitting at his desk at home and lost consciousness. The patient was admitted for observation and developed refractory VT whereby the patient was coded and shocked 4 times in
total as per ACLS protocol. The patient is currently lucid and did not have to be intubated. He is currently on an amiodarone drip; he did receive lidocaine 70 mg in addition to amiodarone 300 mg, epinephrine, bicarbonate, calcium, and magnesium
during the code. The patient has reproducible chest pain due to compressions. He denies shortness of breath. His and 2 sons are currently at bedside in the ICU. The patient has had no recurrence of VT on telemetry in the ICU since being on
the amiodarone drip.
Refractory VT:
-VT storm associated with short coupled PVC and start of Torsades with sustained VT with monomorphic pattern
-Recent infarct - LAD territory - ectopy with reperfusion and scar based reentry to sustain
- s/p dual chamber ICD ([employer] 11/17/23)
- atrial pacing at 85 bpm - suppressing PVC with overdrive pacing
- No more VT since the ICD-now atrial paced is decreased to 70 bpm. Only demand pacing at this time.
- On Amiodarone gtt to 400 mg TID-plan to switch to 200 mg twice daily at discharge
- Continue Toprol-XL 25 mg daily. likely would like to increase if BP allows.
- Continue residential monitor in the ICU.
- ECHO 11/18/23 - LVEF 25% with anteroseptal and inferior hypokinesis and lateral wall lety - unchanged from 11/04/23
Coronary artery disease (catheterization on 11/05/2023 revealed mid LAD occlusion and chronic total proximal RCA occlusion with left to right collaterals; medical management due to late presentation anterior AK):
-Continue aspirin, rosuvastatin, and metoprolol succinate.
Troponin elevation:
-Secondary to acute nonischemic myocardial injury in the setting of tachycardia/defibrillatory shocks.
Acute HFrEF/ICM (EF 25-30%):
-Continue Toprol-XL and losartan.
-Will resume Jardiance once stable -likely as an outpatient
Pulm Edema
-hyopxic resp failure with increasing oxygen requirements.
-CXR shows pulm / interstitial edema
- Lasix as tolerated based on his BP
- Discharge home Lasix dose is 40 mg daily and supplement with 40 mg potassium every day
Hypertension:
-Blood pressure is controlled on current management.
Hyperlipidemia:
-Continue rosuvastatin.
NIDDM:
-Hemoglobin A1c 8.5%.
-Management as per primary team; on metformin, glipizide, and Jardiance at home.
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
-Continue aspirin and statin; no occult A-fib was noted on heart monitor.
Chronic cigarette use (approximately [id number]; quit 04/02/2023)
-Patient should continue to refrain from tobacco use.
Physical Exam
Vital Signs/Labs
Vital Signs
Temp Pulse Resp BP Pulse Ox
98.9 F 70 20 105/61 97
11/21/23 07:52 11/21/23 08:37 11/21/23 07:52 11/21/23 08:37 11/21/23 07:52
11/20/23 11/21/23 11/22/23
06:59 06:59 06:59
Actual Weight 72.8 kg
11/21/23 04:55
11/21/23 04:55
PT 13.8 Sec (11.4-14.6) 11/17/23 01:45
INR 1.08 11/17/23 01:45
APTT 29.3 Sec (23.4-35.0) 11/17/23 01:45
Magnesium 2.1 mg/dl (1.6-2.3) 11/19/23 03:24
11/18/23
04:13
Qkp-I-Kviepecfkql Pept 6700
Physical Exam
Constitutional: No acute distress and Comfortable
EENT: Anicteric and Moist mucous membranes
Cardiovascular: Rhythm & rate is regular, Pedal edema is absent and JVD pressure is normal
Respiratory: Respiratory effort normal, Lungs clear to auscul. and Wheeze Absent
GI: Non tender and Normal bowel sounds
Neuro/Psych: Alert, Oriented and AO x 3
Data Reviewed
-
Date of Service: November 21, 2023
Medical Decision Making: Reviewed Test Results, Independent Historian Assessment and Test Interpretation
EKG: Tracing Personally Visualized and interpreted
Echo: Report Reviewed by me
Labs: Labs Reviewed by me
Old Records: Reviewed
--- NOTE | 2023-11-21 11:01 | W.PN.HOSP.TC ---
Addendum entered and electronically signed by Darnell Garzon MD 11/21/23 15:54:
Cardiology input noted-cleared for discharge
Cardiology recommendation including medication changes and follow-up plan noted
DC home today.
Total time of discharge 35 minutes.
Original Note:
Today's Communication/Plan
-
DC planning
Assessment / Plan
Assessment / Plan
Assessment:
Unprovoked syncope
Confirmed V-Tach, refractory with VT storm
- Coded 11/16 at 1 AM and shocked; the next day with NSVT and R on T, PVCs
- s/p dual chamber ICD ([employer] 11/17/23) placed for secondary prevention
- now transitioned to PO Amio load
- continue BB
- Echo: Severely reduced left ventricular systolic function. LV ejection fraction is 25-30% by visual assessment. There are regional wall motion abnormalities concerning for severe CAD (below). Mild mitral regurgitation.
Color flow pattern suggestive of PFO. Compared to prior study of Mar 2023, LV dysfunction is new.
Recent NSTEMI
- s/p LHC: severe CAD with occlusion of mid LAD and prox RCA. subsequent stress test showed with large areas of infarct and small olena-infarct ischemia
- continue ASA/Statin/BB
-Asymptomatic without chest pain
Ischemic cardiomyopathy
acute HFrEF
- IV Lasix prn to keep negative fluid balance
- hold PO Lasix
- continue Jardiance
- continue ARB
- continue BB
Left forearm IV infiltrate - localized without evidence of thrombophlebitis . ?Amio related . Present for more than 24 hours now and remains painful and tender to touch. Cannot rule out superimposed infection. We will start on oral antibiotics
and follow clinical course.
Hx of CVA - continue ASA/Statin
Type 2 DM
- continue Jardiance/glipizide
- hold MFM until discharge
- SSI
- recent A1c: 8.5%
- BOX SEALING INSPECTOR team following; education provided
HLD - statin
DVT ppx: SC heparin
Code: Full
Tx: to IVU
DC home once stable from cardiology standpoint
Anticipated Discharge: Within 24 hours
Subjective/Interval History
-
Date of Service: November 21, 2023
Feeling improved in general. Slept well.
Denies any shortness of breath or chest pain.
He had an IV line in the left forearm. Apparently there was a swelling which was more obvious yesterday at the IV insertion site. He has pain localized to the swelling. No fever or chills. No worsening of swelling. According to RN apparently he
had IV line and may have had amiodarone infusion through the IV line.
The swelling has been noted more than 24 hours and now indication for hyaluronic acid injections
Objective Data
-
Labs:
Laboratory Results
11/21/23
04:55
WBC 10.1
Hgb 11.8 L
Hct 35.1 L
Plt Count 373
Sodium 135
Potassium 4.7
Chloride 104
Carbon Dioxide 25
BUN 32 H
Creatinine 1.1
Glucose 95
Calcium 9.4
Vital Signs:
Vital Signs
Temp Pulse Resp BP Pulse Ox
98.9 F 70 20 105/61 96
11/21/23 07:52 11/21/23 10:00 11/21/23 07:52 11/21/23 08:37 11/21/23 08:25
I&O
11/20/23 11/21/23 11/22/23
06:59 06:59 06:59
Intake Total 1176.7 / 1176.7 241 / 241
Output Total 3200 / 3200
Balance -3 / - 241 / 241
Review of Systems
-
Constitutional: Denies Fever
EENT: Denies Sore Throat
Respiratory: Denies Cough
Abdomen/GI: Denies Abdominal Pain, Nausea or Vomiting
Neuro: Denies Dizzy
Physical Exam
-
General: No Apparent Distress
HEENT: Moist Mucous Membranes
Respiratory: Clear to Auscultation
Cardiac: Regular Rhythm and S1/S2
GI: Soft
Skin: Other (Left lateral mid to distal forearm area-there is a focal swelling with a vesicle at the top. Tender to touch. No evidence of thrombophlebitis. Concern for an IV infiltrate? Amio cannot rule out superimposed infectious infiltrate.
It is more than 24 hours of discovery .)
Neuro: AO x 3
Data Reviewed
-
Labs: Labs Reviewed by me
[2023-11-21 11:41] VITALS: BP 109/70
[2023-11-21] MEDS: VIBRAMYCIN 100 MG PO (12:12)
[2023-11-21 12:19] LABS: Glucose - Point of Care 99 mg/dl (70-99)
[2023-11-21 15:45] VITALS: BP 116/70
--- NOTE | 2023-11-21 15:53 | W.DS.TRANS ---
DC Summary - [employer]
-
Discharge Instructions:
Discharge Diagnosis/Procedures Refractory VT:
-VT storm associated with short coupled PVC and
start of Torsades with sustained VT with
monomorphic pattern
-Recent infarct - LAD territory - ectopy with
reperfusion and scar based reentry to sustain
- s/p dual chamber ICD ([employer] 11/17/23)
Acute HFrEF/ICM (EF 25-30%)
Embolic CVA (03/2023)
Diet Low Cholesterol
Activity As tolerated
Driving Restrictions No driving for 1 week
Bathing Restrictions OK to Shower
Instructions: *CBC Heart Failure Instructions
Stand-Alone Forms: DC Inst - Implanted Device
Changes to Home Medications: Yes
Discharge Medications:
DC Medications w/original date entered in [facility]
metformin 500 mg tablet,extended release 24 hr 500 mg PO BID Diabetes #60 tabs 04/05/23
aspirin 81 mg tablet,delayed release 81 mg PO DAILY Blood Clot Prevention/Tx 11/04/23
empagliflozin 10 mg tablet (Jardiance) 10 mg PO DAILY #30 tabs 11/09/23
losartan 25 mg tablet 12.5 mg (1/2 x 25 mg) PO DAILY #15 tabs 11/09/23
glipizide 5 mg tablet 2.5 mg PO BID Diabetes 11/16/23
rosuvastatin 20 mg tablet 20 mg PO DAILY High Cholesterol 11/16/23
amiodarone 200 mg tablet 200 mg PO BID #30 tabs 11/21/23
doxycycline hyclate 100 mg capsule 100 mg PO Q12 #8 caps 11/21/23
furosemide 40 mg tablet (Lasix) 40 mg PO DAILY #30 tabs 11/21/23
metoprolol succinate 25 mg tablet,extended release 24 hr (Toprol XL) 25 mg PO BID #30 tabs 11/21/23
potassium chloride 20 mEq tablet,extended release 40 meq (2 x 20 mEq) PO DAILY #60 tabs 11/21/23
Home Medication Changes
Medication-amiodarone
Change in medication-increase dose of Lasix and potassium supplementation, beta-blaine dose
Pending Results: No
--- NOTE | 2023-11-21 15:55 | W.DCSUMMARY ---
Discharge Summary
Discharge Data
Date of Admission: 11/16/23
Date of Discharge: 11/21/23
-
Pending Results: No
Hospital Course
Primary diagnosis:
Refractory ventricular tachycardia
Ventricular tachycardia storm associate with short couple of premature ventricular complexes and start of torsades with sustained ventricular tachycardia with monomorphic pattern
Recent left anterior descending artery territory infarct
[employer] dual-chamber ICD placement on 11/17/2023
Acute on chronic heart failure with reduced EF with EF of 25 to 30%
Secondary diagnosis:
Primary hypertension
Hyperlipidemia
Vmn-sautcef-hhxlkuhug diabetes mellitus with hemoglobin A1c 8.5
History of embolic CVA
Patent laura ovale
Hospital course:
Patient with recently discovered coronary artery disease [catheterization in October 2023 relieved mid LAD occlusion on chronic total proximal RCA occlusion with swbr-tm-[id number] collaterals. Medical management was recommended due to late presentation
of NC. He had cardiomyopathy with EF of 25 to 30%. 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 He did smoke for a long time with [id number] years quit and
March 2023. He admitted with syncope.
In the hospital he developed a refractory VT where an immediate cardiac arrest with shock 4 times per as well as protocol. He was started on amiodarone drip. Lidocaine drip was all visualized. Diabetes, associated with short coupled PVCs and
started torsades with sustained VT with monomorphic pattern. He had a dual-chamber ICD placed on 11/17/2023. No further VT was encountered afterwards. Amiodarone dose was decreased to 200 mg twice a day. Toprol dose was increased. He had an
echocardiogram on 11/17 which showed EF of 25% with anterior septal and inferior hypokinesis and lateral wall lety and no change from recent echo.
With regards to CAD he had no chest pains. He had a troponin elevation which was felt nonischemic myocardial injury from V. tach and defibrillation. He was continued on aspirin, statins and beta-blaine.
He also had acute CHF decompensation and was treated with diuresis. His discharge weight was 160 pounds. He was discharged on a higher dose of Lasix and potassium supplementation. Jardiance will be resumed as an outpatient once more stable.
He had an infiltrate in the right forearm where Amio was infusing. As it was discovered late no hyaluronic acid was given; no clinical evidence of this thrombophlebitis noted. He was given empirical antibiotics with doxycycline prior to discharge
as superimposed infectious infiltrate cannot be ruled out.
She will follow-up with cardiology next week for device check.
He qualifies for lung cancer screening via LDCT chest given his 19-azae-izaf history of smoking and quit in March 2023. He will follow with pulmonary as outpatient.
Consultants on board:
EP urogynecology physician-Dr. Montoya
Pulmonary-Dr. Duran
Discharge Plan
-
Patient Disposition: Home (Routine Discharge)
Discharge Diagnosis/Procedures: Refractory VT:
-VT storm associated with short coupled PVC and start of Torsades with sustained VT with monomorphic pattern
-Recent infarct - LAD territory - ectopy with reperfusion and scar based reentry to sustain
- s/p dual chamber ICD ([employer] 11/17/23)
Acute HFrEF/ICM (EF 25-30%)
Embolic CVA (03/2023)
Diet: Low Cholesterol
Activity: As tolerated
Driving Restrictions: No driving for 1 week
Bathing Restrictions: OK to Shower
Instructions: *CBC Heart Failure Instructions
Stand Alone Forms: DC Inst - Implanted Device
Referrals:
Rosalinda Grigsby CRNP [Specified Professional Personl] - 11/25/23 9:20 am (Incision check appointment)
Jason Duran MD [Active] - in four to six weeks
Prescriptions:
New
amiodarone 200 mg tablet
200 mg PO BID Qty: 30 0RF
Rx Instructions:
take twice a day till seen by cardiology in office
furosemide [Lasix] 40 mg tablet
40 mg PO DAILY Qty: 30 0RF
Rx Instructions:
dose increased on this admission
potassium chloride 20 mEq tablet extended release
40 meq PO DAILY Qty: 60 0RF
doxycycline hyclate 100 mg Capsule
100 mg PO Q12 Qty: 8 0RF
Continued
metformin 500 mg Tablet Extended Release 24 Hr
500 mg PO BID Qty: 60 0RF
aspirin 81 mg Tablet,Delayed Release (Dr/Ec)
81 mg PO DAILY
losartan 25 mg Tablet
12.5 mg PO DAILY Qty: 15 2RF
glipizide 5 mg tablet
2.5 mg PO BID
rosuvastatin 20 mg tablet
20 mg PO DAILY
Changed
metoprolol succinate [Toprol XL] 25 mg tablet extended release 24 hr
25 mg PO BID Qty: 30 0RF
Rx Instructions:
dose increased on this admission
Held
Jardiance 10 mg Tablet
10 mg PO DAILY Qty: 30 2RF
Hold Instructions: Resume on 11/25/23. till seen by cardiology
Discontinued
furosemide 20 mg Tablet
20 mg PO DAILY Qty: 90 0RF
potassium chloride [Klor-Con M20] 20 mEq tablet,ER particles/crystals
10 meq PO BID
Discharge Orders:
Discharge Patient (As Directed); Ordered 11/21/23
Ordered By: Darnell Garzon
Discharge Date and Time
Print Language: GREENLANDIC
--- NOTE | 2023-11-21 16:27 | PTCARENOTE ---
D/C instructions given to patient and , both verbalizes understanding. INT removed from right arm, reddened, tender to touch. left forearm no change from previous assessment. telemetry D/Cd', personal belongings packed and sent home with
patient. patient and are apprehensive about going home, offered emotional support. D/C to [facility] via [facility] accompanied by staff.
== END 2023-11-21 17:11 | disposition home or self-care (01) | DRG 276 ==
LOC: IVU 18:21
PROVIDERS: Internal Medicine Cardiovascular Disease; Registered Nurse; ADMITTING PHYSICIAN Internal Medicine; ATTENDING PHYSICIAN Internal Medicine; CONSULT PHYSICIAN Internal Medicine; CONSULT PHYSICIAN Internal Medicine Critical Care Medicine; EMERGENCY PHYSICIAN Emergency Medicine
PROC: 0JH608Z Insertion of Defibrillator Generator into Chest Subcutaneous Tissue and Fascia, Open Approach (ICD-10-PCS; 2023-11-17)
PROC: 02H63KZ Insertion of Defibrillator Lead into Right Atrium, Percutaneous Approach (ICD-10-PCS; 2023-11-17)
PROC: 5A2204Z Restoration of Cardiac Rhythm, Single (ICD-10-PCS; 2023-11-17)
PROC: 02HK3KZ Insertion of Defibrillator Lead into Right Ventricle, Percutaneous Approach (ICD-10-PCS; 2023-11-17)
DX: I47.29 Other ventricular tachycardia (principal); I50.23 Acute on chronic systolic (congestive) heart failure; J96.01 Acute respiratory failure with hypoxia; I5A Non-ischemic myocardial injury (non-traumatic); Q21.12 Patent foramen ovale; I25.5 Ischemic cardiomyopathy; E78.00 Pure hypercholesterolemia, unspecified; I25.10 Atherosclerotic heart disease of native coronary artery without angina pectoris; I11.0 Hypertensive heart disease with heart failure; E11.65 Type 2 diabetes mellitus with hyperglycemia; I47.21 Torsades de pointes; I25.2 Old myocardial infarction; Z79.82 Long term (current) use of aspirin; Z79.84 Long term (current) use of oral hypoglycemic drugs; Z79.899 Other long term (current) drug therapy; Z86.73 Personal history of transient ischemic attack (TIA), and cerebral infarction without residual deficits; Z87.891 Personal history of nicotine dependence
CPT/HCPCS: 93308; 33249; 36600; 71045; 80048; 80053; 82805; 82962; 83735; 83880; 84100; 84443; 84484; 85025; 85027; 85610; 85730; 93005; 99285; 99406; C1721; C1892; C1895; C1898

== ENCOUNTER 2023-12-05 10:23 | Inpatient (IN) | payer BC, SELFPAY ==
[2023-12-04 21:22] VITALS: BP 169/89
[2023-12-04 21:34] VITALS: BP 140/75
[2023-12-04 21:36] VITALS: BMI 26.9
[2023-12-04 21:36] LABS: Glucose - Point of Care 103 mg/dl (70-99)
--- NOTE | 2023-12-04 21:54 | ED.GENMED ---
History of Present Illness
General
Chief Complaint: Fainting Sensation
Source: patient, records and spouse
Exam Limitations: none
Time Seen by Provider: 12/04/23 21:33
Nursing documentation reviewed up to this point in time: agreed with
Travel History
Have you had any contact with someone who has COVID-19?: No
Do you have any symptoms of coronavirus? Fever > 100 degrees, chills, cough, shortness of breath, sore throat, loss of taste or smell, muscle aches, or headache?: No
History of Present Illness
History of Present Illness:
62-year-old male presents to the emergency department complaining of warm feeling in his chest, and feeling dizzy at about 8:15 PM tonight. No aggravating relieving factors. He does feel improved. Recent catheterization, showing multivessel CAD,
V. tach arrest, pacemaker implant
Past History
Past History
ED Past Medical History: CVA and NIDDM
Social History
Tobacco: Smoker
Alcohol: None
Review of Systems
Review of Systems
Allergies reviewed?: Yes
All Other Systems: Not applicable
Constitutional: Reports no symptoms
EENT: Reports no symptoms
Respiratory: Reports no symptoms
Cardiac: Reports chest pain and syncope (Near)
ABD/GI: Reports no symptoms
: Reports no symptoms
Musculoskeletal: Reports no symptoms
Skin: Reports no symptoms
Neurological: Reports dizzy
Endocrine: Reports no symptoms
Hematologic/Lymphatic: Reports no symptoms
Psychiatric: Reports no symptoms
Phy Exam
Physical Exam
Physical Exam:
Physical Exam
General: no apparent distress, not acutely ill
Neck: supple. no meningeal signs. normal posterior pharynx
Heart: s1/s2 regular rate and rhythm, no murmur. equal radial
pulses. Pacemaker left upper chest
HEENT: Pupils equal round reactive to light, EOMI
Lungs: no acute respiratory distress. clear bilaterally
Abdomen: normal bowel sounds. not tender. no CVAT
Neuro: alert and oriented. no focal neurological deficits cranial nerves II through XII intact
Skin: no rash
Psychiatric: well kept. interactive and cooperative
Extremities: no edema. no calf tenderness. negative homans. good distal pulses
Course
Orders/Labs/Results
Orders:
Orders
12/04/23 21:25
ECG [Electrocardiogram (*1)] Urgent
Reason for Study: Syncope
Cardiology Consult: Unknown
12/04/23 21:26
EKG- Treatment ONCE
12/04/23 21:27
Electrocardiogram (*1) Urgent
Reason for Study: Other
Other Reason for Exam: Respiratory Distress
Cardiac Monitoring- Treatment ONCE
EKG- Treatment ONCE
IV Insert/Care/Rem.- Treatment PRN
CR Chest - 2 Views Urgent
Comment:
Reason For Exam: respiratory distress
O2 Therapy [RESP] Urgent
Titrate/Wean O2 to maintain O2 sat greater than (%): 93
Special Instructions: TO MAINTAIN CONTINUOUS O2 SATS >/= 93%
Pulse Ox/cont/shift [RESP] Urgent
Quantity: 1
Special Instructions: continuous pulse ox
12/04/23 22:09
Complete Blood Count/With Diff Urgent
NT-proBNP Urgent
Troponin I Urgent
12/04/23 22:33
Comprehensive Metabolic Panel Urgent
12/05/23 00:08
Admit/Transfer Patient As Directed
Co-Sign Provider:
Level of Care: Observation services
Assign to:: Telemetry
Physician / Group: Hospitalist
Diagnosis: Palpitations, KOTA
Reason for Telemetry: Medication for Arrhythmia
Date to Stop Telemetry: 12/07/23
Time to Stop Telemetry: 11:00
12/05/23 00:13
Code Status As Directed
Resuscitation Status: Full Code
12/07/23 11:00
DC Protocol for Telemetry ONCE
Abnormal Lab Results
12/04/23 12/04/23 12/04/23
21:35 22:09 22:33
RBC 4.47 L 10^6/uL
(4.70-6.10)
Hct 37.8 L %
(39.0-52.0)
Absolute Monos (auto) 0.9 H 10^3/uL
(0.1-0.6)
Monocytes % 9.8 H %
(1.7-9.3)
Sodium 131 L mmol/L
(135-145)
BUN 42 H mg/dl
(9-20)
Creatinine 2.1 H mg/dL
(0.7-1.3)
Glucose 101 H mg/dl
(70-99)
POC Glucose 103 H mg/dl
(70-99)
12/04/23 22:09
12/04/23 22:33
Vital Signs
Initial and Last Documented VS:
Initial Vital Signs
Temp Pulse Resp BP Pulse Ox
97.5 F 70 20 169/89 100
12/04/23 21:22 12/04/23 21:22 12/04/23 21:22 12/04/23 21:22 12/04/23 21:22
Last Documented Vital Signs
Temp Pulse Resp BP Pulse Ox
97.5 F 70 16 114/64 98
12/04/23 21:22 12/05/23 01:30 12/05/23 01:30 12/05/23 01:00 12/05/23 01:30
MDM/Problems Addressed
Differential Diagnosis Includes:
ACS, dysrhythmia
MDM/Problems Addressed:
62-year-old male with acute renal failure, near syncope episode, no signs of dysrhythmia, pacemaker functioning properly. No AICD fires. Discussed with Dr. Pérez, who recommends admission for further observation.
Chronic conditions affecting care: CAD and Arrhythmia
Acute Exacerbation and/or Progression of Chronic Illness: CAD and Arrhythmia
*Radiology
Radiology exam reviewed: preliminary read by ED provider (Chest x-ray no acute findings)
*Pulse Oximetry
Patient hypoxic: no
*EKG
Interpreted by ED Provider?: Yes
EKG Intrepretation Date: 12/05/23
EKG Intrepretation Time: 21:30
Interpretation: abnormal
Comparison EKG: no changes
Heart Rate: 72
Rate: normal
Rhythm: av sequential
Dewart: normal axis
Interval: normal interval
QRS Pattern: left vent hypertrophy
Ischemia: non-specific ST changes
*[facility] [employer] Aide Interpretation
Rate: normal
Interpretation: abnormal
Heart Rate: 70
Rhythm: av sequential
*Critical Care Note
Total Time (30-74mins, 75-104mins- exclusive of procedures): Not Applicable
Data Reviewed
Review of Other/Old Records Reveals: Operative Reports (Recent AICD placement)
Source: records
Patient Management
Discussion with other providers: Hospitalist and Nailer Hand (Discussed with Dr. Pérez, and [facility])
Escalation/DeEscalation of care consider admission/obs:
Admit indicated
ED Attending Note
-
Portions of this chart may have been created with voice recognition software.� Occasional wrong word or��sound alike� substitutions may have occurred due to the inherent limitations of voice recognition software.
Discharge Plan
Departure
Patient Disposition: Admit
Date of Disposition: 12/04/23
Time of Disposition: 23:10
Admit to: IMU
Presentation/result/management discussed w/ accepting MD/DO: Hospitalist
Patient with high blood pressure during this ER visit?: Yes
Condition: Good
Discharge Problem:
Near syncope, Acute renal failure
Interventions
Interventions:
*Risk Screen - Suicide Last Done: 12/04/23 21:36
*General Assessment Last Done: 12/04/23 21:36
*Neglect/Abuse Screening Last Done: 12/04/23 21:36
ED- Fall Risk Assessment Last Done: 12/04/23 21:36
*ED COVID-19 Vaccine History Last Done: 12/04/23 21:36
ED- Cardiac Assessment Last Done: 12/04/23 21:36
ED- Neurological Assessment Last Done: 12/04/23 21:36
[2023-12-04 22:13] LABS: % Basophils 0.4 % (0-2); % Eosinophils 1.6 % (0-6); % Immature Granulocytes 0.2 % (0-0.5); % Monocytes 9.8 % (1.7-9.3); Absolute Eosinophils 0.2 10^3/uL (0-0.7); Absolute Lymphocytes 2.8 10^3/uL (1.2-3.4); Absolute Monocytes 0.9 10^3/uL (0.1-0.6); Absolute Neutrophils 5.4 10^3/uL (1.4-6.5); Hematocrit 37.8 % (39.0-52.0); Hemoglobin 13.1 g/dL (13.0-18.0); Mean Corp Hgb Conc. 34.7 g/dL (33.0-37.0); Mean Corpuscular Hgb 29.3 pg (27.0-31.0); Mean Corpuscular Volume 84.6 fL (80.0-94.0); Mean Platelet Volume 9.3 fL (7.4-10.4); Nucleated Red Blood Cells % 0 % (-); Platelet Count 278 10^3/uL (130-400); Red Blood Cell Count 4.47 10^6/uL (4.70-6.10); Red Cell Dist. Width 13.2 % (11.5-14.5); White Blood Cell Count 9.4 10^3/uL (4.8-10.8)
[2023-12-04 22:37] LABS: NT-proBNP 2290 pg/ml; Troponin I 0.023 ng/ml
[2023-12-04 22:58] LABS: ALT (SGPT) 23 U/L (0-50); AST (SGOT) 26 U/L (17-59); Albumin 4.3 g/dl (3.5-5.0); Alkaline Phosphatase 78 U/L (38-126); Blood Urea Nitrogen 42 mg/dl (9-20); Calcium 9.4 mg/dl (8.4-10.2); Carbon Dioxide 24 mmol/L (22-30); Chloride 99 mmol/L (98-107); Estimated Creatinine Clearance 31 ml/min; Glucose 101 mg/dl (70-99); Potassium 4.7 mmol/L (3.5-5.1); Sodium 131 mmol/L (135-145); Total Bilirubin 0.6 mg/dl (0.2-1.3); Total Protein 6.7 g/dl (6.3-8.2); eGFR 35.37
[2023-12-04 23:00] VITALS: BP 103/62
--- NOTE | 2023-12-04 23:52 | HPS.HSE ---
Family Physician
-
Family Physician: Alexandre De La Torre
Chief Complaint
-
Flushing
History of Present Illness
This is a 62-year-old male with a past medical history of ischemic cardiomyopathy EF of 25 to 30%, history of V. tach recently requiring external defibrillation status post AICD, diabetes, hypertension who presents to the emergency department with
an episode of feeling lightheaded or fainting sensation.
Patient reported that he been doing well at home with no symptoms since his discharge status post AICD placement approximately 2 weeks ago. Reports that he has been compliant with his medications. His weight come down from around 147 pounds to
143. Reports occasional orthostatic dizziness about really. He also reports occasional fatigue. Denies any increased lower extremity swelling. Denies any palpitations.
Reported no procedures to the health. He was driving home at around 8:30 PM when he had a flushing sensation. He felt he was rising from his chest into his neck area. There was no chest pain per se. There was no palpitations. He did not feel
lightheaded. Denies any vision changes. This lasted for less than a minute and then resolved. However he did not quite feel back to his baseline. He denies any numbness tingling. Denies any weakness. Denies any fever or chills.
On arrival in the ED initial blood pressure was 169/89, current blood pressure is around 110/60. Pulse was 70, oxygen saturation was 99%. He was afebrile. ECG shows a atrial paced rhythm at a rate of 86 without any acute changes. There is slight
downsloping of the ST segments from V4 through 6. His initial troponin was 0.02. Rhythm strip showed variable heart rate but a atrial paced rhythm. Chest x-ray was completely clear. CBC was done changed and normal. Chemistries notable for a
rising BUN to 42 and creatinine to 2.1. BNP was down to 2290.
There was an attempt at interrogation which was unsuccessful. The [facility]'s rep was consulted but unable to get here until the morning. This was discussed with Dr. Pérez who recommended observation until interrogation.
Medical History
Past Medical History
Past Medical History: Reports CAD, CHF, HTN and NIDDM
Additional Past Medical History:
VTACH s/p AICD ppm
CKD
Past Surgical History: Reports None
Social History
Tobacco: Non-smoker
Alcohol: None
Drug: None
Personal:
Living: With Family
Employment: Employed
Family History
Family History: Not pertinent
Allergies / Home Medications
Allergies reflects when Allergies were last updated in [employer].
Home Medications with original date entered in [employer]
Allergy/Medication List:
Allergies
Allergy/AdvReac Type Severity Reaction Status Date / Time
povidone-iodine Allergy Hives Verified 12/04/23 21:22
[From Betadine]
Home Medications
metformin 500 mg tablet,extended release 24 hr 500 mg PO BID Diabetes #60 tabs 04/05/23
aspirin 81 mg tablet,delayed release 81 mg PO DAILY Blood Clot Prevention/Tx 11/04/23
empagliflozin 10 mg tablet (Jardiance) 10 mg PO DAILY #30 tabs 11/09/23
losartan 25 mg tablet 12.5 mg (1/2 x 25 mg) PO DAILY #15 tabs 11/09/23
glipizide 5 mg tablet 2.5 mg PO BID Diabetes 11/16/23
rosuvastatin 20 mg tablet 20 mg PO DAILY High Cholesterol 11/16/23
amiodarone 200 mg tablet 200 mg PO BID #30 tabs 11/21/23
doxycycline hyclate 100 mg capsule 100 mg PO Q12 #8 caps 11/21/23
furosemide 40 mg tablet (Lasix) 40 mg PO DAILY #30 tabs 11/21/23
metoprolol succinate 25 mg tablet,extended release 24 hr (Toprol XL) 25 mg PO BID #30 tabs 11/21/23
potassium chloride 20 mEq tablet,extended release 40 meq (2 x 20 mEq) PO DAILY #60 tabs 11/21/23
Review of Systems
-
History Source: Patient
Constitutional: Reports No Symptoms
EENT: Reports No Symptoms
Respiratory: Reports No Symptoms
Cardiac: Reports Palpitations
Abdomen/GI: Reports No Symptoms
: Reports No Symptoms
Musculoskeletal: Reports No Symptoms
Skin: Reports No Symptoms
Endocrine: Reports No Symptoms
Hematologic/Lymphatic: Reports No Symptoms
Psych: Reports No Symptoms
Physical Exam
Vital Signs
Vital Signs
Temp Pulse Resp BP Pulse Ox
97.5 F 68 14 103/62 99
12/04/23 21:22 12/04/23 23:15 12/04/23 23:15 12/04/23 23:00 12/04/23 23:15
Physical Exam
General: Well Developed, Well Nourished, No Apparent Distress and Comfortable
HEENT: NormoCephalic, Anicteric, Moist mucous membranes, Atraumatic and PERRLA
Respiratory: Clear
Cardiac: S1/S2 and Regular Rhythm
Breast: Deferred by me
GI: Soft, Non Tender, Non Distended and Normal Bowel Sounds
Rectal: Deferred by Provider
Genito-urinary: Deferred by me
Musculoskeletal: No Clubbing, No Cyanosis and No Edema
Skin: Warm and Dry
Neuro: AO x 3
Hematologic/Lymphatic: No Lymphadenopathy
Psych: Calm
Laboratory Results
-
12/04/23 22:09
12/04/23 22:33
Laboratory Results
Total Bilirubin 0.6 mg/dl (0.2-1.3) 12/04/23 22:33
AST 26 U/L (17-59) 12/04/23 22:33
ALT 23 U/L (0-50) 12/04/23 22:33
Alkaline Phosphatase 78 U/L (38-126) 12/04/23 22:33
Troponin I 0.023 ng/ml 12/04/23 22:09
Data Reviewed
-
Diagnostic Radiology: Image Personally Visualized and interpreted
Medical Tests (Nuc Med, Echo, EKG etc): Image Personally Visualized and interpreted
Lab Data: Labs Reviewed by me
Old Records: Reviewed
Impression/Plan
-
IMPRESSION:
PLAN:
1. Pre-syncope - Patient with h/o ICM EF 25 - 30 % with apical akinesis and LAD regional hypokinesis, VTACH s/p defibrillation and s/p AICD PPM, coming in with a brief spell of flushing. No actual fainting sensation, lightheadedness or
dizziness. No weakness. Hemodynamically stable. No shock sensation. Normal troponin and no ischemia on ECG. Unable to interrogate AICD in ED. ECG showing a paced rhythm.
- admit to observation under telemetry
- awaiting [facility] rep in am, ok per Dr. Pérez
- consult cardiology
- orthostatic vs.
2. VTACH s/p AICD - Currently a paced rhythm at 70 - 86.
- continue amiodarone 200mg bid
- metoprolol 25mg bid
3. CAD -
- asa 81, statin daily
4. CHF - ICM with depressed EF as above. Appears euvolemic on exam. Xray is clear. No peripheral edema. BNP is improved. Creatinine is up to 2.1 from baseline of 1.1 at his last discharge when his diuretics was intensified. Given BUN/Cr > 20
suspect slightly prerenal and also on ARB. If stable likely acceptable change given balance of CHF.
- hold lasix for now, daily weights, d/c at lower dose
- continue minimal dose of losartan at 12.5
5. KOTA
- as above, holding jardiance as well.
- check orthostatic vs
6. DM II
- continue glipizide and metformin
- sliding scale insulin
DVT PPX - lovenox sq
Full Code
[2023-12-05] VITALS (13 sets, daily range): BP systolic 85–114; BP diastolic 55–69; PULSE 69–70; BMI 25.3
--- NOTE | 2023-12-05 02:37 | PTCARENOTE ---
Rec'd pt. into room 2255 from ED AAOx3, VSS, A-paced on the monitor. No complaints dizziness / lightheadedness/ or flushing. Pt. ambulatory with steady gait. Pt. oriented to room and plan of care discussed, understanding verbalized. Currently
resting in bed quietly.
[2023-12-05 05:16] LABS: Blood Urea Nitrogen 38 mg/dl (9-20); Calcium 9.3 mg/dl (8.4-10.2); Carbon Dioxide 24 mmol/L (22-30); Chloride 101 mmol/L (98-107); Estimated Creatinine Clearance 37 ml/min; Glucose 85 mg/dl (70-99); Magnesium 1.6 mg/dl (1.6-2.3); Potassium 4.5 mmol/L (3.5-5.1); Sodium 132 mmol/L (135-145); eGFR 42.56
[2023-12-05 07:12] LABS: Glucose - Point of Care 91 mg/dl (70-99)
[2023-12-05] MEDS: ASPIR LOW (ENTERIC COATED) 81 MG PO (08:17)
[2023-12-05] MEDS: FLUSH (NSS) 1 FLUSH IV (08:19)
[2023-12-05] MEDS: PACERONE 200 MG PO ×2 (08:19→20:06)
--- NOTE | 2023-12-05 09:40 | PTCARENOTE ---
Received patient this morning resting in bed. is at the bedside. Patient offers no complaints at this time, AM meds held until patient was seen by cardiology. A paced on the monitor, BP 85/55 when standing BP done, patient was asymptomatic.
Will continue to monitor.
--- NOTE | 2023-12-05 09:43 | CON.CAR ---
Consultation
Consultation Request
Date/Time Consultation Requested: 12/05/23, 7am
Date/Time Consultation Performed: 12/05/23, 8am
Requesting Provider: Terrell
Performing Provider: Beto
Reason for Consultation: KOTA, dizziness
Medical History
-
Chief Complaint: dizziness
History of Present Illness:
62 year-old male with recently discovered coronary artery disease (catheterization on 11/05/2023 revealed mid LAD occlusion and chronic total proximal RCA occlusion with left to right collaterals; medical management due to late presentation anterior
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
end of October, and now on amiodarone and s/p [employer] dial chamber ICD (10/28/23).
He is now re-admitted with dizziness, and found to have KOTA.
Denies CP, SOB, palps, edema, syncope.
Past Medical History
Past Medical History: Arrhythmias (VT), CAD, CHF (chronic systolic HF), CVA, HTN and Hypercholesterolemia
Past Surgical History: Cardiac (ICD ([employer] dual chamber) 10/2023)
Social History
Tobacco: Former Smoker
Family History
Family History: Early CAD (none)
Allergies / Home Medications
Allergy/AdvReac Type Severity Reaction Status Date / Time
povidone-iodine Allergy Hives Verified 12/04/23 21:22
[From Betadine]
�Medication �Instructions �Recorded �Confirmed �Type
metformin 500 mg tablet,extended 500 mg PO BID Diabetes #60 tabs 04/05/23 12/05/23 Rx
release 24 hr
aspirin 81 mg tablet,delayed 81 mg PO DAILY Blood Clot 11/04/23 12/05/23 History
release Prevention/Tx
empagliflozin 10 mg tablet 10 mg PO DAILY #30 tabs 11/09/23 12/05/23 Rx
(Jardiance)
losartan 25 mg tablet 12.5 mg (1/2 x 25 mg) PO DAILY #15 11/09/23 12/05/23 Rx
tabs
glipizide 5 mg tablet 2.5 mg PO BID Diabetes 11/16/23 12/05/23 History
rosuvastatin 20 mg tablet 20 mg PO DAILY High Cholesterol 11/16/23 12/05/23 History
amiodarone 200 mg tablet 200 mg PO BID #30 tabs 11/21/23 12/05/23 Rx
furosemide 40 mg tablet (Lasix) 40 mg PO DAILY #30 tabs 11/21/23 12/05/23 Rx
metoprolol succinate 25 mg 25 mg PO BID #30 tabs 11/21/23 12/05/23 Rx
tablet,extended release 24 hr
(Toprol XL)
potassium chloride 20 mEq 40 meq (2 x 20 mEq) PO DAILY #60 11/21/23 12/05/23 Rx
tablet,extended release tabs
clopidogrel 75 mg tablet (Plavix) 75 mg PO DAILY 12/05/23 12/05/23 History
Review of Systems
-
All other systems: Negative unless noted
Neurological: Dizzy
Physical Exam
Vital Signs
Temp Pulse Resp BP Pulse Ox
98.8 F 70 20 85/55 99
12/05/23 07:05 12/05/23 07:08 12/05/23 07:05 12/05/23 07:08 12/05/23 07:05
Lab Results
12/04/23 22:09
12/05/23 04:39
Troponin I 0.023 ng/ml 12/04/23 22:09
Nsz-K-Caxzvqrdnfc Pept 2290 pg/ml 12/04/23 22:09
Physical Exam
General: Well Developed and Well Nourished
HEENT: Normocephalic and Anicteric
Respiratory: Clear and Non Labored Respirations
Cardiac: S1/S2 (normal), Regular Rhythm, Murmur (none) and Peripheral Edema (none)
GI: Soft, Non Tender and Non Distended
Musculoskeletal: No Clubbing, No Cyanosis and No Edema
Skin: Warm and Dry
Neuro: AO x 3
Psych: Calm
Impression / Plan
-
62 year-old male with recently discovered coronary artery disease (catheterization on 11/05/2023 revealed mid LAD occlusion and chronic total proximal RCA occlusion with left to right collaterals; medical management due to late presentation anterior
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
end of October, and now on amiodarone and s/p [employer] dual chamber ICD (10/28/23). He is now re-admitted with dizziness, and found to have KOTA.
Dizziness, KOTA, hypotension
-he appears volume down with KOTA
-hold lasix, jardiance, losartan
-allow liberal PO intake today, and trend Cr
VT
-continue amiodarone
-s/p [employer] dual chamber ICD
-no VT on tele
-device interrogation
Coronary artery disease (catheterization on 11/05/2023 revealed mid LAD occlusion and chronic total proximal RCA occlusion with left to right collaterals; medical management due to late presentation anterior DE):
-Continue aspirin, plavix, rosuvastatin, and metoprolol succinate.
Chronic HFrEF/ICM (EF 25-30%):
-Continue Toprol-XL
-other meds held as described above
Hypertension:
-Blood pressure is low (see above)
Hyperlipidemia:
-Continue rosuvastatin.
NIDDM:
-Hemoglobin A1c 8.5%.
-Management as per primary team
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
-Continue aspirin and statin; no occult A-fib was noted on heart monitor.
Chronic cigarette use (approximately 23-chri-fsci; quit 04/02/2023)
-abstinence
Data Reviewed
-
EKG: Tracing Personally Visualized and interpreted (NSR, anterior infarct)
Medical Tests (Nuc Med, Echo etc): Report Reviewed by me (see note)
Labs: Labs Reviewed by me, Discussed with Physician, Discussed with Nurse, Discussed with Patient and Discussed with Family
[2023-12-05] MEDS: TOPROL XL 25 MG PO ×2 (10:02→20:06)
--- NOTE | 2023-12-05 10:04 | W.PN.HOSP.TC ---
Today's Communication/Plan
-
hold meds
cont IVF
orthostatic VS
Assessment / Plan
Assessment / Plan
pt is a 62 year old male
Pre-syncope--Patient with h/o ICM EF 25 - 30 % with apical akinesis and LAD regional hypokinesis, VTACH s/p defibrillation and s/p AICD PPM, coming in with a brief spell of flushing-- No actual fainting sensation, lightheadedness, dizziness,
weakness --BP 85/55 likely volume depleted from overdiuresis-- No shock sensation, AICD interrogated at 1AM, no issues found--Normal troponin and no ischemia on ECG--apprec cards--NSS 500mls IVF at 60ml--follow BP--agree with holding meds
VTACH s/p AICD - Currently a paced rhythm at 70 - 86-- continue amiodarone 200mg bid--metoprolol 25mg bid
CAD--asa 81, statin daily
chronic systolic CHF (EF 25-30%) without exacerbation-- Appears euvolemic to dry on exam-- Creatinine is up to 2.1 from baseline of 1.1 at his last discharge when his diuretics was intensified. Given BUN/Cr > 20 suspect slightly prerenal and also
on ARB-- hold lasix, losartan, jardiance, metformin
KOTA--Creatinine is up to 2.1 from baseline of 1.1--cont orthostatics--holding jardiance as well.
DM II--continue glipizide--stop metformin--sliding scale insulin
DVT PPX - lovenox sq
Full Code
Anticipated Discharge: 24 - 48 hours
Subjective/Interval History
-
Date of Service: December 05, 2023
pt without c/o--said he didn't feel well yesterday at home
Objective Data
-
Labs:
Laboratory Results
12/04/23 12/04/23 12/05/23
22:09 22:33 04:39
WBC 9.4
Hgb 13.1
Hct 37.8 L
Plt Count 278
Sodium Cancelled 131 L 132 L
Potassium Cancelled 4.7 4.5
Chloride Cancelled 99 101
Carbon Dioxide Cancelled 24 24
BUN Cancelled 42 H 38 H
Creatinine Cancelled 2.1 H 1.8 H
Glucose Cancelled 101 H 85
Calcium Cancelled 9.4 9.3
Total Bilirubin Cancelled 0.6
AST Cancelled 26
ALT Cancelled 23
Alkaline Phosphatase Cancelled 78
Vital Signs:
max temp for 24 hours
12/05/23
07:05
Temp 98.8 F
Vital Signs
Temp Pulse Resp BP Pulse Ox
98.8 F 70 20 85/55 99
12/05/23 07:05 12/05/23 07:08 12/05/23 07:05 12/05/23 07:08 12/05/23 07:05
I&O
12/04/23 12/05/23 12/06/23
06:59 06:59 06:59
Intake Total 240 / 240
Balance 240 / 240
Review of Systems
-
All other systems: Reviewed and negative
Physical Exam
-
General: Well Developed, Well Nourished and No Apparent Distress
HEENT: Normocephalic and Atraumatic; Negative Oxygen
Respiratory: Clear to Auscultation; Negative Wheezes, Rhonchi or Crackles
Cardiac: Regular Rhythm and S1/S2; Negative Murmur
GI: Soft, Nontender, Nondistended and Normal Bowel Sounds
Musculoskeletal: No Clubbing, No Cyanosis and No Edema
Neuro: Awake and Alert
[2023-12-05] MEDS: GLUCOTROL 2.5 MG PO (11:22)
[2023-12-05] MEDS: NSS 500 IV (11:23)
[2023-12-05 11:45] LABS: Glucose - Point of Care 116 mg/dl (70-99)
[2023-12-05 17:47] LABS: Glucose - Point of Care 67 mg/dl (70-99)
[2023-12-05 18:09] LABS: Glucose - Point of Care 115 mg/dl (70-99)
[2023-12-05] MEDS: GLUCOTROL PO (18:09)
[2023-12-05] MEDS: PLAVIX 75 MG PO (18:09)
[2023-12-05] MEDS: CRESTOR 20 MG PO (18:09)
[2023-12-05] MEDS: NSS IV (19:28)
[2023-12-05 20:11] LABS: Glucose - Point of Care 165 mg/dl (70-99)
[2023-12-05 22:06] LABS: Glucose - Point of Care 92 mg/dl (70-99)
--- NOTE | 2023-12-05 22:22 | PTCARENOTE ---
Pt. has no complaints of pain/dizziness, ambulating without difficulty. A-paced on the monitor, VSS. Verified with Dr. Pérez pt. only to get 500 ml IVF rather than continuously; IVF's dc/d after first 500 ml given. Hypoglycemia from earlier today
resolved, last blood sugar 92. Pt. resting quietly.
--- NOTE | 2023-12-05 23:14 | PTCARENOTE ---
Pt rec'd at change of shift resting with at his bedside. A paced on telemetry. call amezquiat within reach
[2023-12-06 03:38] VITALS: BP 98/65
[2023-12-06 03:46] LABS: Glucose - Point of Care 98 mg/dl (70-99)
[2023-12-06 03:55] LABS: Hematocrit 36.5 % (39.0-52.0); Hemoglobin 12.3 g/dL (13.0-18.0); Mean Corp Hgb Conc. 33.7 g/dL (33.0-37.0); Mean Corpuscular Volume 86.1 fL (80.0-94.0); Mean Platelet Volume 9.3 fL (7.4-10.4); Platelet Count 278 10^3/uL (130-400); Red Blood Cell Count 4.24 10^6/uL (4.70-6.10); Red Cell Dist. Width 13.2 % (11.5-14.5); White Blood Cell Count 7.3 10^3/uL (4.8-10.8)
[2023-12-06 03:57] VITALS: BMI 24.9
[2023-12-06 04:08] LABS: Blood Urea Nitrogen 28 mg/dl (9-20); Calcium 9.6 mg/dl (8.4-10.2); Carbon Dioxide 26 mmol/L (22-30); Chloride 106 mmol/L (98-107); Estimated Creatinine Clearance 39 ml/min; Glucose 83 mg/dl (70-99); Magnesium 1.8 mg/dl (1.6-2.3); Potassium 4.4 mmol/L (3.5-5.1); Sodium 139 mmol/L (135-145); eGFR 45.58
--- NOTE | 2023-12-06 05:21 | PTCARENOTE ---
Pt with no complaints this am. remains at pt's bedside. A paced on telemetry.
[2023-12-06 07:31] LABS: Glucose - Point of Care 105 mg/dl (70-99)
[2023-12-06 07:32] VITALS: BP 102/65
--- NOTE | 2023-12-06 08:00 | PTCARENOTE ---
VSS. A paced. seeming less anxious. 98% RA. lungs clear. independent in care. hopeful d/c this afternoon.
--- NOTE | 2023-12-06 08:36 | W.PN.CD ---
Today's Communication / Plan
-
Recheck orthostatic vital signs.
Daily weights.
Hold SGLT2i/ARB at this time.
If orthostatics are negative, we can consider discharge with outpatient kidney follow up.
Impression / Plan
-
Impression/Plan: 62 year-old male with recently discovered coronary artery disease (catheterization on 11/05/2023 revealed mid LAD occlusion and chronic total proximal RCA occlusion with left to right collaterals; medical management due to late
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
re-admitted with VT storm at end of October, and now on amiodarone and s/p St [employer] dual chamber ICD (10/28/23). He is now re-admitted with dizziness, and found to have KOTA.
#Dizziness, KOTA, hypotension
-Acute, improving.
-Hold furosemide, empagliflozin and losartan.
-[place] PO intake today, and trend Cr. NSS 500 mL given.
-He is improving. Recall that Cr will lag behind clinical picture and actual renal recovery.
-Recheck orthostatic vital signs - if negative, we can consider discharge and outpatient renal follow up.
#VT
-Continue amiodarone.
-s/p St [place] dual chamber ICD.
-No VT on telemetry.
-Device interrogation shows no VT/VF/Defibrillations.
#Coronary artery disease
-Chronic, stable.
-Catheterization on 11/05/2023 revealed mid LAD occlusion and chronic total proximal RCA occlusion with left to right collaterals; medical management due to late presentation anterior AK.
-Continue aspirin, clopidogrel, rosuvastatin, and metoprolol succinate.
#HFrEF/ICM (EF 25-30%)
-Chronic, stable.
-Continue metoprolol succinate.
-ARB/SGLT2i held in light of KOTA.
#Hypertension
-Chronic. Relatively hypotensive on presentation.
-Continue metoprolol.
-ARB on hold.
#Hyperlipidemia
-Chronic.
-Continue rosuvastatin.
#NIDDM
-Chronic.
-Hemoglobin A1c 8.5%.
-Management as per primary team.
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
-Likely paradoxical (secondary to PFO; patient declined PFO closure). RoPE score > 4.
-Continue aspirin and statin; no occult atrial fibrillation on heart monitor.
#Chronic cigarette use (approximately [id number]; quit 04/02/2023)
-Continued abstinence.
Subjective/Interval History:
Patient feels well.
Weight is down 1 kg form yesterday (?) in spite of holding furosemide, NSS 500 mL bolus.
BUN/Cr down to 28/1.7.
DATA:
TTE, 11/18/2023:
CONCLUSIONS
Normal left ventricular chamber size. Severely reduced left ventricular
systolic function.
Left ventricular ejection fraction is 25-30% by Duran's method.
LAD territory severe hypokinesis with akinesis of the apex.
Normal right ventricular size and function.
Limited valvular interrogation.
Compared to prior from November 04, 2023, no significant change.
Physical Exam
Vital Signs/Labs
Vital Signs
Temp Pulse Resp BP Pulse Ox
36.4 C 70 20 98/65 100
12/06/23 04:02 12/06/23 03:38 12/06/23 04:02 12/06/23 03:38 12/06/23 04:02
12/04/23 12/05/23 12/06/23
11:59 11:59 11:59
Actual Weight 66.7 kg 65.7 kg
12/06/23 03:45
12/06/23 03:45
Magnesium 1.8 mg/dl (1.6-2.3) 12/06/23 03:45
12/04/23
22:09
Plq-X-Yacpoblksgw Pept 2290
LAB Results
12/04/23
22:09
Troponin I 0.023
Physical Exam
Constitutional: No acute distress and Comfortable
EENT: Anicteric and Moist mucous membranes
Cardiovascular: Rhythm & rate is regular, Pedal edema is absent, JVD pressure is normal, S1S2 is normal and Murmur/rub/gallop absent
Respiratory: Respiratory effort normal, Lungs clear to auscul., Wheeze Absent, Crackles Absent and Rhonchi Absent
GI: Soft, Distention absent, Flat, Non tender and Normal bowel sounds
Neuro/Psych: AO x 3
Data Reviewed
-
Date of Service: December 06, 2023
Medical Decision Making: Reviewed Test Results, Independent Historian Assessment and Test Interpretation
EKG: Tracing Personally Visualized and interpreted and Report Reviewed by me
Echo: Tracing Personally Visualized and interpreted and Report Reviewed by me
X-Ray/CT/US/MRI/NUC/PET: Image Personally Visualized and interpreted and Report Reviewed by me
Medical Tests (PFT, Pathology etc): Image Personally Visualized and interpreted and Report Reviewed by me
Labs: Labs Reviewed by me
Old Records: Reviewed
[2023-12-06] MEDS: GLUCOTROL 2.5 MG PO (09:12)
[2023-12-06] MEDS: ASPIR LOW (ENTERIC COATED) 81 MG PO (09:12)
[2023-12-06] MEDS: TOPROL XL 25 MG PO (09:13)
[2023-12-06] MEDS: PACERONE 200 MG PO (09:13)
--- NOTE | 2023-12-06 09:34 | W.PN.HOSP.TC ---
Today's Communication/Plan
-
possible d/c if OK with cards
will need outpt blood work and closer f/u with cards
Assessment / Plan
Assessment / Plan
pt is a 62 year old male
Pre-syncope--Patient with h/o ICM EF 25 - 30 % with apical akinesis and LAD regional hypokinesis, VTACH s/p defibrillation and s/p AICD PPM, coming in with a brief spell of flushing-- No actual fainting sensation, lightheadedness, dizziness,
weakness --BP 85/55 likely volume depleted from overdiuresis-- AICD interrogated at 1AM (admission), no issues found--Normal troponin and no ischemia on ECG--apprec cards--NSS 500mls IVF at 60ml--follow BP--agree with holding meds --possible d/c if
cleared by cards
KOTA--Creatinine 2.1 on admission, 1.8, now 1.7 from baseline of 1.1---holding jardiance as well.
VTACH s/p AICD - Currently a paced rhythm at 70 - 86-- continue amiodarone 200mg bid--metoprolol 25mg bid
CAD--asa 81, statin daily
chronic systolic CHF (EF 25-30%) without exacerbation-- Appears euvolemic to dry on exam-- Creatinine is up to 2.1 from baseline of 1.1 at his last discharge when his diuretics was intensified. Given BUN/Cr > 20 suspect slightly prerenal and also
on ARB-- hold lasix, losartan, jardiance, metformin
DM II--continue glipizide--stop metformin--sliding scale insulin
DVT PPX - lovenox sq
Full Code
Anticipated Discharge: Within 24 hours
Subjective/Interval History
-
Date of Service: December 06, 2023
pt has lots of questions, including if he can go home
Objective Data
-
Labs:
Laboratory Results
12/06/23
03:45
WBC 7.3
Hgb 12.3 L
Hct 36.5 L
Plt Count 278
Sodium 139
Potassium 4.4
Chloride 106
Carbon Dioxide 26
BUN 28 H
Creatinine 1.7 H
Glucose 83
Calcium 9.6
Vital Signs:
max temp for 24 hours
12/05/23
16:09
Temp 98.6 F
Vital Signs
Temp Pulse Resp BP Pulse Ox
97.6 F 70 20 98/65 100
12/06/23 04:02 12/06/23 03:38 12/06/23 04:02 12/06/23 03:38 12/06/23 04:02
I&O
12/05/23 12/06/23 12/07/23
06:59 06:59 06:59
Intake Total 240 / 240 1460 / 1460
Balance 240 / 240 1460 / 1460
Review of Systems
-
All other systems: Reviewed and negative
Physical Exam
-
General: Well Developed, Well Nourished and No Apparent Distress
HEENT: Normocephalic and Atraumatic
Respiratory: Clear to Auscultation; Negative Wheezes or Rhonchi
Cardiac: Regular Rhythm and S1/S2; Negative Murmur
GI: Soft, Nontender, Nondistended and Normal Bowel Sounds
Musculoskeletal: No Clubbing, No Cyanosis and No Edema
Neuro: Awake and Alert
[2023-12-06 09:52] LABS: Glycohemoglobin (HgbA1c) 7.2 % (4.0-5.6)
[2023-12-06 11:25] VITALS: BP 108/68; BP 114/72; BP 118/73; PULSE 70; PULSE 72; PULSE 78
[2023-12-06 11:27] VITALS: BP 118/73
[2023-12-06 11:28] VITALS: BP 108/68
[2023-12-06 11:33] LABS: Glucose - Point of Care 115 mg/dl (70-99)
--- NOTE | 2023-12-06 13:27 | CM ---
spoke to pt in room, he is prev indep, 2 story home with 3 steps to enter. he denies any dc planning needs. discussed HF educ with pt, emailed him the [facility] group information for virual meetings per the r HF educator. plan is
for dc to home when when medically stable.
--- NOTE | 2023-12-06 14:41 | W.DCSUMMARY ---
Discharge Summary
Discharge Data
Date of Admission: 12/05/23
Date of Discharge: 12/06/23
-
Pending Results: No
Hospital Course
Primary care physician : Alexandre De La Torre
Principal Discharge diagnosis : Presyncope, acute kidney injury
Chronic Discharge diagnosis : History of V. tach status post AICD placement, coronary artery disease, chronic systolic congestive heart failure without exacerbation, type 2 diabetes mellitus
Hospital Course : Patient was a 62-year-old male with a history of chronic systolic congestive heart failure with ejection fraction of 25 to 30% and a history of V. tach requiring defibrillator and pacemaker placement who presented with an episode
of feeling lightheaded. He was doing well at home and had no symptoms for the 2 weeks and has been home since discharge. He has been compliant with his medications. He also has been faithful with his fluid restriction. Weight has come down from
147 pounds to 143 pounds. He reported occasional dizziness. He was driving home around 8:30 PM on the day of admission when he had a flushing sensation. He felt that was rising from his chest into the neck. There was no chest pain. There were
no palpitations. He did not feel specifically lightheaded. This lasted for a minute and then resolved. He did not feel back to baseline. In the emergency department blood pressure was 169/89 on arrival which then dropped to 110/60. Creatinine
was found to be 2.1 with elevated BUN of 42. Patient was admitted.
Problem #1: Presyncope. This was likely from overdiuresis and volume depletion. Patient's blood pressure dropped to 85/55 while in house. Medications were held as mentioned. Normal saline was given 500 mL with improvement. Patient is feeling
much improved this morning. His AICD was interrogated without any issues found. He had normal troponins and no ischemia on his EKG. He was seen in consultation by cardiology.
Problem #2: Acute kidney injury. This was thought to be due to volume depletion/dehydration likely from overdiuresis in combination with/exacerbated by Jardiance, Lasix, metformin, losartan. These medications were held. He was given 500 mL of
normal saline with improvement of his creatinine from 2.1 down to 1.7 at discharge (his baseline is 1.1).
Problem #3: All other medical issues. These include History of V. tach status post AICD placement, coronary artery disease, chronic systolic congestive heart failure without exacerbation, type 2 diabetes mellitus. These medical issues were stable
during his hospitalization. Medications were continued as able.
Patient is stable for discharge home at this time. If there are any questions regarding this dictation or his hospital stay, please not hesitate to call. Our office number is [phone].
Discharge Plan
-
Patient Disposition: Home (Routine Discharge)
Discharge Diagnosis/Procedures: Presyncope, acute kidney injury, history of V. tach status post AICD placement, coronary artery disease, chronic systolic congestive heart failure with ejection fraction of 25 to 30% without exacerbation, type 2
diabetes mellitus
Condition: Good
Diet: 2 Gram Sodium and Diabetic, Carb Controlled
Activity: As tolerated
Driving Restrictions: As prior to admission
Bathing Restrictions: None
Blood Work: BMP Saturday 12/09 results to cardiology
Specialty Instructions: Weigh Daily- Call MD for wt gain/loss 3 lbs overnight/5 lbs in 1 week
Referrals:
Rosalinda Grigsby CRNP [Specified Professional Personl] - 12/16/23 10:40 am
Tomy Wells DO [Active] - 01/14/24 2:20 pm (call for appointment--post hospital visit)
Alexandre De La Torre MD [Family Provider] - in less than 1 week
Prescriptions:
New
metoprolol succinate 25 mg Tablet Extended Release 24 Hr
25 mg PO BID Qty: 0 0RF
Continued
aspirin 81 mg Tablet,Delayed Release (Dr/Ec)
81 mg PO DAILY
glipizide 5 mg tablet
2.5 mg PO BID
rosuvastatin 20 mg tablet
20 mg PO DAILY
clopidogrel [Plavix] 75 mg Tablet
75 mg PO DAILY
amiodarone 200 mg tablet
200 mg PO BID Qty: 30 0RF
Rx Instructions:
take twice a day till seen by cardiology in office
Held
metformin 500 mg Tablet Extended Release 24 Hr
500 mg PO BID Qty: 60 0RF
Hold Instructions: do not resume until told to do so by your primary MD
losartan 25 mg Tablet
12.5 mg PO DAILY Qty: 15 2RF
Hold Instructions: do not resume until told to do so by cardiology
Jardiance 10 mg Tablet
10 mg PO DAILY Qty: 30 2RF
Hold Instructions: do not resume until told to do so by your corn breeder
furosemide [Lasix] 40 mg tablet
40 mg PO DAILY Qty: 30 0RF
Hold Instructions: do not take until told to resume by cardiology
Rx Instructions:
dose increased on this admission
potassium chloride 20 mEq tablet extended release
40 meq PO DAILY Qty: 60 0RF
Hold Instructions: do not take until told to resume by your corn breeder
Discontinued
metoprolol succinate [Toprol XL] 25 mg tablet extended release 24 hr
25 mg PO BID Qty: 30 0RF
Rx Instructions:
dose increased on this admission
Discharge Orders:
Discharge Patient (As Directed); Ordered 12/06/23
Ordered By: Mile Tejada
Care Plan Goals
Care Plan Goals:
Problem: Readiness for enhanced knowledge related to diagnosis and treatment plan
Goal: Understand your diagnosis and treatment plan needs, including medications if applicable.
Instructions: Know your diagnosis, underlying causes and treatment plan options, including medications if applicable. Consult with your health care team to learn about your diagnosis and treatment plan, including medications if applicable.
Discharge Date and Time
Print Language: CITIZEN OF [place]
--- NOTE | 2023-12-06 15:42 | PTCARENOTE ---
showered, iv and tele pack removed. all questions answered and d/c instructions reviewed with patient and his bedside. taken out via wheelchair and left with .
== END 2023-12-06 15:42 | disposition home or self-care (01) | DRG 683 ==
LOC: IVU 10:23
PROVIDERS: Emergency Medicine; ADMITTING PHYSICIAN Internal Medicine; ATTENDING PHYSICIAN Internal Medicine; CONSULT PHYSICIAN Internal Medicine; EMERGENCY PHYSICIAN Emergency Medicine; FAMILY PHYSICIAN Family Medicine
DX: N17.9 Acute kidney failure, unspecified (principal); I47.20 Ventricular tachycardia, unspecified; I50.22 Chronic systolic (congestive) heart failure; I25.10 Atherosclerotic heart disease of native coronary artery without angina pectoris; E11.9 Type 2 diabetes mellitus without complications; I11.0 Hypertensive heart disease with heart failure; E78.00 Pure hypercholesterolemia, unspecified; Z95.810 Presence of automatic (implantable) cardiac defibrillator; Z79.82 Long term (current) use of aspirin; Z86.73 Personal history of transient ischemic attack (TIA), and cerebral infarction without residual deficits; Z79.84 Long term (current) use of oral hypoglycemic drugs
CPT/HCPCS: 71046; 80048; 80053; 82962; 83036; 83735; 83880; 84484; 85025; 85027; 93005; 99285; 99406

== ENCOUNTER 2024-01-02 08:17 | Emergency (ER) | payer BC, SELFPAY ==
[2024-01-02 08:19] VITALS: BP 121/68
--- NOTE | 2024-01-02 08:47 | ED.GENMED ---
History of Present Illness
General
Chief Complaint: Chest Pain
Source: patient
Time Seen by Provider: 01/02/24 08:30
Travel History
Have you had any contact with someone who has COVID-19?: No
Do you have any symptoms of coronavirus? Fever > 100 degrees, chills, cough, shortness of breath, sore throat, loss of taste or smell, muscle aches, or headache?: No
History of Present Illness
History of Present Illness:
63-year-old male presents to the emergency room complaining of chest pain. Pain is located on both sides of his chest. It seems worse with movement. No shortness of breath. Patient recently hospitalized several times for an acute MD followed by
an admission for ventricular dysrhythmia and cardiac arrest. He received an ICD at that time. Last hospitalization was for renal insufficiency. He had adjustments of his medication and renal function has been improving. Patient states he did mow
his lawn yesterday on a riding mower. He used a blower to clear his driveway etc. That was an increase in his activity since his recent medical events. Patient does not have pleuritic type chest pain.
Past History
Past History
ED Past Medical History: CVA and NIDDM
Social History
Tobacco: Smoker
Alcohol: None
Phy Exam
Physical Exam
Physical Exam:
General: Awake, Alert, Oriented X3. No acute distress.
Vitals: unremarkable
Head: Atraumatic
Eyes: Pupils equal, EOMI
Throat: Airway intact, no exudates
Neck: Trachea midline
Lungs: Clear and equal b/l
Heart: Regular rate, no murmurs
Abd: Soft, Nontender, No pulsatile mass
Neuro: Nonfocal
Skin: Warm, dry, no rash
Extremities: pulses equal b/l, no edema
Scores
Heart Score for Chest Pain Patients
STEMI patient?: No
History: Slightly or Non-Suspicious
ECG: Nonspecific Repolarization
Age: >45 - <65 years
Risk Factors: >/= 3 Risk Factors or History of CAD
Troponin: </= Normal Limit
Heart Score for Chest Pain Patients: 4
Heart Score Risk: 20.3% MACE over next 6 weeks
Course
Orders/Labs/Results
Orders:
Orders
01/02/24 08:19
Electrocardiogram (*1) Urgent
Reason for Study: Chest Pain
EKG- Treatment ONCE
01/02/24 08:40
Cardiac Monitoring- Treatment ONCE
01/02/24 08:56
Basic Metabolic Panel Urgent
Complete Blood Count/With Diff Urgent
Troponin I Urgent
01/02/24 11:52
Troponin I Urgent
Abnormal Lab Results
01/02/24
08:56
RBC 4.37 L 10^6/uL
(4.70-6.10)
Hgb 12.8 L g/dL
(13.0-18.0)
Hct 38.2 L %
(39.0-52.0)
Lymphocytes % 20.3 L %
(20.5-51.1)
BUN 29 H mg/dl
(9-20)
Glucose 282 H mg/dl
(70-99)
01/02/24 08:56
01/02/24 08:56
Vital Signs
Initial and Last Documented VS:
Initial Vital Signs
Temp Pulse Resp BP Pulse Ox
99.0 F 73 16 121/68 98
01/02/24 08:19 01/02/24 08:19 01/02/24 08:19 01/02/24 08:19 01/02/24 08:19
Last Documented Vital Signs
Temp Pulse Resp BP Pulse Ox
99.0 F 70 19 111/76 99
01/02/24 08:19 01/02/24 12:45 01/02/24 12:45 01/02/24 12:00 01/02/24 12:45
MDM/Problems Addressed
Differential Diagnosis Includes:
Chest wall pain, acute coronary syndrome, costochondritis
MDM/Problems Addressed:
Patient presents with some vague chest discomfort. He has had a recent complicated cardiac history. Pain today seems atypical. EKG shows no acute ischemic changes. Troponin is normal x 2. He did perform some increased activity recently which I
think has led to him having some chest wall discomfort. Patient stable for discharge home.
Chronic conditions affecting care: HTN and CAD
*Pulse Oximetry
Patient hypoxic: no
*EKG
Interpreted by ED Provider?: Yes
Interpretation: abnormal
Heart Rate: 70
Rate: normal
Rhythm: other (atrial paced)
Interval: normal interval
QRS Pattern: normal QRS
Ischemia: non-specific ST changes
*Graphic Arts Instructor Interpretation
Rate: normal
Rhythm: other (atrial paced)
*Critical Care Note
Total Time (30-74mins, 75-104mins- exclusive of procedures): Not Applicable
Data Reviewed
Review of Other/Old Records Reveals: Progress Notes and Discharge Summary (From the past 3 hospitalizations)
Patient Management
Social determinants of health affecting care: Strong social support
ED Attending Note
-
Portions of this chart may have been created with voice recognition software.� Occasional wrong word or��sound alike� substitutions may have occurred due to the inherent limitations of voice recognition software.
Discharge Plan
Departure
Patient Disposition: Home (Routine Discharge)
Date of Disposition: 01/02/24
Time of Disposition: 12:44
Patient with high blood pressure during this ER visit?: No
Condition: Good
Discharge Problem:
Chest pain
Instructions: Chest Pain CBC Follow Up
Prescriptions:
No Action
metformin 500 mg Tablet Extended Release 24 Hr
500 mg PO BID Qty: 60 0RF
Hold Instructions: do not resume until told to do so by your primary MD
aspirin 81 mg Tablet,Delayed Release (Dr/Ec)
81 mg PO DAILY
losartan 25 mg Tablet
12.5 mg PO DAILY Qty: 15 2RF
Hold Instructions: do not resume until told to do so by cardiology
Jardiance 10 mg Tablet
10 mg PO DAILY Qty: 30 2RF
Hold Instructions: Resume on 11/25/23. till seen by cardiology
glipizide 5 mg tablet
2.5 mg PO BID
rosuvastatin 20 mg tablet
20 mg PO DAILY
furosemide [Lasix] 40 mg tablet
40 mg PO DAILY Qty: 30 0RF
Hold Instructions: do not take until told to resume by cardiology
Rx Instructions:
dose increased on this admission
potassium chloride 20 mEq tablet extended release
40 meq PO DAILY Qty: 60 0RF
Hold Instructions: do not take until told to resume by your restaurant hourly manager
clopidogrel [Plavix] 75 mg Tablet
75 mg PO DAILY
metoprolol succinate 25 mg Tablet Extended Release 24 Hr
25 mg PO BID Qty: 0 0RF
amiodarone 200 mg tablet
200 mg PO BID Qty: 30 0RF
Rx Instructions:
take twice a day till seen by cardiology in office
Referrals:
Alexandre De La Torre MD [Family Provider] -
Interventions
Interventions:
*Risk Screen - Suicide Last Done: 01/02/24 09:07
*General Assessment Last Done: 01/02/24 09:07
*Neglect/Abuse Screening Last Done: 01/02/24 09:07
ED- Fall Risk Assessment Last Done: 01/02/24 09:15
*ED COVID-19 Vaccine History Last Done: 01/02/24 08:19
*Nursing Disposition Last Done: 01/02/24 13:19
ED- Cardiac Assessment Last Done: 01/02/24 09:07
Discharge Date and Time
Discharge Date/Time: 01/02/24 13:19
Print Language: [place]AK[place]
[2024-01-02 09:00] VITALS: BP 129/70
[2024-01-02 09:10] LABS: % Basophils 0.3 % (0-2); % Eosinophils 0.6 % (0-6); % Immature Granulocytes 0.5 % (0-0.5); % Lymphocytes 20.3 % (20.5-51.1); % Monocytes 4.5 % (1.7-9.3); % Neutrophils 73.8 % (42.2-75.2); Absolute Lymphocytes 1.3 10^3/uL (1.2-3.4); Absolute Monocytes 0.3 10^3/uL (0.1-0.6); Absolute Neutrophils 4.9 10^3/uL (1.4-6.5); Hematocrit 38.2 % (39.0-52.0); Hemoglobin 12.8 g/dL (13.0-18.0); Mean Corp Hgb Conc. 33.5 g/dL (33.0-37.0); Mean Corpuscular Hgb 29.3 pg (27.0-31.0); Mean Corpuscular Volume 87.4 fL (80.0-94.0); Mean Platelet Volume 9.3 fL (7.4-10.4); Nucleated Red Blood Cells % 0 % (-); Platelet Count 276 10^3/uL (130-400); Red Blood Cell Count 4.37 10^6/uL (4.70-6.10); Red Cell Dist. Width 13.5 % (11.5-14.5); White Blood Cell Count 6.6 10^3/uL (4.8-10.8)
[2024-01-02 09:27] LABS: Blood Urea Nitrogen 29 mg/dl (9-20); Calcium 9.1 mg/dl (8.4-10.2); Carbon Dioxide 26 mmol/L (22-30); Chloride 104 mmol/L (98-107); Glucose 282 mg/dl (70-99); Potassium 4.7 mmol/L (3.5-5.1); Sodium 138 mmol/L (135-145); eGFR > 60.00
[2024-01-02 09:29] LABS: Troponin I 0.029 ng/ml
[2024-01-02 10:00] VITALS: BP 115/71
[2024-01-02 11:00] VITALS: BP 120/74
[2024-01-02 12:00] VITALS: BP 111/76
[2024-01-02 12:27] LABS: Troponin I 0.028 ng/ml
== END 2024-01-02 13:19 | disposition home or self-care (01) ==
LOC: EMR 08:17
PROVIDERS: EMERGENCY PHYSICIAN Emergency Medicine; FAMILY PHYSICIAN Family Medicine
DX: R07.89 Other chest pain (principal); I11.9 Hypertensive heart disease without heart failure; E11.9 Type 2 diabetes mellitus without complications; I25.10 Atherosclerotic heart disease of native coronary artery without angina pectoris; I25.2 Old myocardial infarction; F17.200 Nicotine dependence, unspecified, uncomplicated; Z86.73 Personal history of transient ischemic attack (TIA), and cerebral infarction without residual deficits; Z86.74 Personal history of sudden cardiac arrest
CPT/HCPCS: 99283; 80048; 84484; 85025; 93005

== ENCOUNTER 2024-01-19 08:29 | Outpatient (RCR) | payer BC, SELFPAY ==
[2024-01-03 15:15] LABS: Glucose - Point of Care 160 mg/dl (70-99)
[2024-01-03 16:11] LABS: Glucose - Point of Care 152 mg/dl (70-99)
[2024-01-05 08:20] LABS: Glucose - Point of Care 226 mg/dl (70-99)
[2024-01-05 09:10] LABS: Glucose - Point of Care 168 mg/dl (70-99)
[2024-01-10 08:30] LABS: Glucose - Point of Care 236 mg/dl (70-99)
[2024-01-10 09:15] LABS: Glucose - Point of Care 154 mg/dl (70-99)
[2024-01-12 08:07] LABS: Glucose - Point of Care 188 mg/dl (70-99)
[2024-01-12 09:07] LABS: Glucose - Point of Care 166 mg/dl (70-99)
[2024-01-14 08:10] LABS: Glucose - Point of Care 152 mg/dl (70-99)
[2024-01-14 09:08] LABS: Glucose - Point of Care 142 mg/dl (70-99)
[2024-01-17 08:21] LABS: Glucose - Point of Care 131 mg/dl (70-99)
[2024-01-17 09:17] LABS: Glucose - Point of Care 122 mg/dl (70-99)
== END 2024-01-19 23:59 | disposition home or self-care (01) ==
LOC: CRHB 08:29
PROVIDERS: ATTENDING PHYSICIAN Internal Medicine Cardiovascular Disease
DX: I50.22 Chronic systolic (congestive) heart failure (principal); I25.2 Old myocardial infarction; I25.10 Atherosclerotic heart disease of native coronary artery without angina pectoris
CPT/HCPCS: 82962; 93797; 93798

== ENCOUNTER 2024-02-21 14:01 | Outpatient (RCR) | payer BC, SELFPAY | END 2024-02-21 23:59 | disposition home or self-care (01) | LOC: CRHB 14:01 | PROVIDERS: ATTENDING PHYSICIAN Internal Medicine Cardiovascular Disease | DX: I50.22 Chronic systolic (congestive) heart failure (principal); I25.2 Old myocardial infarction; I25.10 Atherosclerotic heart disease of native coronary artery without angina pectoris | CPT/HCPCS: 93797; 93798 ==

== ENCOUNTER → 2024-02-24 08:15 | Outpatient (REF) | payer BC, SELFPAY ==
--- NOTE | 2024-02-24 09:10 | CARDSERVLU ---
Echocardiogram with Lumason completed after protocol screening completed. Allergies verified.
Patent IV site: Right forearm 22 G PC < site clear
IV site flushed with 0.9% NaCl pre and post administration.
Diluted bolus method utilized to enhance visualization of ventricular peck.
Total volume given: __4__ mL
Patient tolerated all procedures well without complications.
Heplock D/c ed at 0906, site clear, no redness, no edema. Pressure held as pt on anticoagulants, no bleeding, 2x2 applied and taped. Pt offers no complaints.
== END ==
LOC: RCS 08:15
PROVIDERS: ATTENDING PHYSICIAN Internal Medicine Cardiovascular Disease; FAMILY PHYSICIAN Family Medicine
DX: I25.5 Ischemic cardiomyopathy (principal); I47.20 Ventricular tachycardia, unspecified
CPT/HCPCS: 93308; 93321; 93325; Q9950

== ENCOUNTER 2024-03-08 15:01 | Emergency (ER) | payer BC, SELFPAY ==
[2024-03-08 15:14] VITALS: BP 154/85
[2024-03-08 15:23] LABS: % Basophils 0.3 % (0-2); % Eosinophils 1.4 % (0-6); % Immature Granulocytes 0.2 % (0-0.5); % Lymphocytes 37.4 % (20.5-51.1); % Monocytes 6.6 % (1.7-9.3); % Neutrophils 54.1 % (42.2-75.2); Absolute Eosinophils 0.1 10^3/uL (0-0.7); Absolute Lymphocytes 3.6 10^3/uL (1.2-3.4); Absolute Monocytes 0.6 10^3/uL (0.1-0.6); Absolute Neutrophils 5.2 10^3/uL (1.4-6.5); Hematocrit 41.4 % (39.0-52.0); Hemoglobin 13.7 g/dL (13.0-18.0); Mean Corp Hgb Conc. 33.1 g/dL (33.0-37.0); Mean Corpuscular Hgb 29.3 pg (27.0-31.0); Mean Corpuscular Volume 88.5 fL (80.0-94.0); Nucleated Red Blood Cells % 0 % (-); Platelet Count 299 10^3/uL (130-400); Red Blood Cell Count 4.68 10^6/uL (4.70-6.10); White Blood Cell Count 9.6 10^3/uL (4.8-10.8)
[2024-03-08 15:36] LABS: ALT (SGPT) 37 U/L (0-50); AST (SGOT) 33 U/L (17-59); Albumin 4.9 g/dl (3.5-5.0); Alkaline Phosphatase 82 U/L (38-126); Blood Urea Nitrogen 22 mg/dl (9-20); Calcium 9.6 mg/dl (8.4-10.2); Carbon Dioxide 27 mmol/L (22-30); Chloride 101 mmol/L (98-107); Glucose 166 mg/dl (70-99); Potassium 4.3 mmol/L (3.5-5.1); Sodium 136 mmol/L (135-145); Total Protein 7.3 g/dl (6.3-8.2); eGFR > 60.00
[2024-03-08 15:44] LABS: Troponin I 0.021 ng/ml
[2024-03-08 16:54] VITALS: BMI 25.5
[2024-03-08 17:00] VITALS: BP 95/75
[2024-03-08 18:01] VITALS: BP 116/87
--- NOTE | 2024-03-08 18:29 | ED.GENMED ---
History of Present Illness
General
Chief Complaint: Chest Pain
Source: patient, records and spouse
Exam Limitations: none
Time Seen by Provider: 03/08/24 16:50
Nursing documentation reviewed up to this point in time: agreed with
History of Present Illness
History of Present Illness:
63-year-old male with a past medical history of hyperlipidemia, CHF, diabetes, pacemaker/ICD who presents to the emergency room with his for evaluation of chest pain. Patient reports onset of symptoms yesterday night around midnight while he
was lying in bed�he reports a vague discomfort in the left side of his chest occasionally substernal occasionally left precordial region. No clear triggering factors noted; he says that he had an episode earlier this afternoon and took some
nitroglycerin which seemed to help. No exertional component.He denies any shortness of breath. No nausea, vomiting, diaphoresis. No edema in the legs. Of note he does say that he seems to have had increased belching. Denies any other complaints.
Past History
Past History
ED Past Medical History: CVA and NIDDM
Social History
Tobacco: Smoker
Alcohol: None
Review of Systems
Review of Systems
All Other Systems: ROS reviewed and negative except as documented in HPI and ROS
Constitutional: Denies fever or chills
Respiratory: Denies cough or trouble breathing
Cardiac: Reports chest pain; Denies palpitations
ABD/GI: Denies abdominal pain, nausea, vomiting or diarrhea
: Denies flank pain
Musculoskeletal: Denies edema, neck pain or back pain
Neurological: Denies dizzy or headache
Phy Exam
Physical Exam
Physical Exam:
General: Awake, alert, oriented x3; no acute distress
Head: Normocephalic, atraumatic
Eyes: Conjunctiva normal, sclera anicteric
Throat: Airway intact, handling secretions
Neck: Trachea midline, supple without meningismus
Lungs: Clear to auscultation bilaterally, no wheezing, rales, rhonchi
Heart: Regular rate and rhythm, no murmurs, gallops, or rubs; no chest wall tenderness
Abd: Soft, non distended, nontender
Neuro: Cranial nerves grossly intact, speech fluid
Skin: no rash
Extremities: No edema in extremities, equal pulses in all extremities
Scores
Heart Failure Risk
Heart Failure Risk Score: Not Applicable
Heart Score for Chest Pain Patients
STEMI patient?: No
History: Slightly or Non-Suspicious
ECG: Normal
Age: >45 - <65 years
Risk Factors: >/= 3 Risk Factors or History of CAD
Troponin: </= Normal Limit
Heart Score for Chest Pain Patients: 3
Heart Score Risk: 2.5% MACE over next 6 weeks
Withdrawal Assessment of Alcohol
Withdrawal Assessment Completed?: Not applicable
Course
Orders/Labs/Results
Orders:
Orders
03/08/24 15:03
Electrocardiogram (*1) Urgent
Reason for Study: Chest Pain
EKG- Treatment ONCE
03/08/24 15:12
Complete Blood Count/With Diff Urgent
Comprehensive Metabolic Panel Urgent
Troponin I Urgent
03/08/24 16:54
CR Chest - 2 Views Urgent
Comment:
Reason For Exam: chest pain
03/08/24 16:56
Interrogate Pacemaker- Treatment ONCE
03/08/24 18:39
Troponin I Urgent
Abnormal Lab Results
03/08/24
15:12
RBC 4.68 L 10^6/uL
(4.70-6.10)
Absolute Lymphs (auto) 3.6 H 10^3/uL
(1.2-3.4)
BUN 22 H mg/dl
(9-20)
Glucose 166 H mg/dl
(70-99)
03/08/24 15:12
03/08/24 15:12
Vital Signs
Initial and Last Documented VS:
Initial Vital Signs
Temp Pulse Resp BP Pulse Ox
36.8 C 70 16 154/85 99
03/08/24 15:14 03/08/24 15:14 03/08/24 15:14 03/08/24 15:14 03/08/24 15:14
Last Documented Vital Signs
Temp Pulse Resp BP Pulse Ox
36.8 C 70 15 106/63 97
03/08/24 15:14 03/08/24 19:15 03/08/24 19:15 03/08/24 19:00 03/08/24 20:00
MDM/Problems Addressed
Differential Diagnosis Includes:
GERD, angina, costochondritis, pneumothorax, pneumonia; PE considered very unlikely with intermittent mild symptoms, no shortness of breath, normal vital signs�in my judgment no further workup for PE indicated at this point
MDM/Problems Addressed:
63-year-old male with history as document presents for evaluation of intermittent vague chest pain since last night�started while he was laying flat in bed and has been intermittent since then. Only other associated symptom is some increased
belching. Mildly hypertensive in triage improved by my assessment, rest of vitals normal. Physical exam as above. EKG no changes from prior. Interrogated pacemaker no events noted. Plan to place an IV check labs including a CBC and a CMP,
serial troponins. Will check chest x-ray. Monitor for recurrence. Reassess after the above.
Labs reviewed: CBC unremarkable, CMP no clinically significant abnormalities. Initial troponin negative, repeat pending. Chest x-ray shows no acute disease. Vitals stable. Continue to monitor.
Repeat troponin negative. Patient chest pain-free, stable vitals on reassessment. Stable for discharge, reasonable to start a PPI; can follow-up with cardiology as an outpatient although low suspicion is cardiac chest pain based on full clinical
picture. Patient comfortable with this plan. All questions answered.
Chronic conditions affecting care:
CAD
Acute Exacerbation and/or Progression of Chronic Illness:
Acutely hypertensive resolved without intervention continue to monitor but no additional antihypertensives indicated at present
Acute Exacerbation and/or Progression of Chronic Illness: HTN
*Radiology
Radiology exam reviewed: preliminary read by ED provider (No acute disease on my independent review of chest x-ray)
*Pulse Oximetry
Patient hypoxic: no
*EKG
Interpreted by ED Provider?: Yes
Heart Rate: 70
Rate: normal
Rhythm: other (Atrial paced rhythm)
Ischemia: T-wave inversion (Lateral T wave abnormalities, similar to prior)
*Critical Care Note
Total Time (30-74mins, 75-104mins- exclusive of procedures): Not Applicable
Data Reviewed
Review of Other/Old Records Reveals: Labs and Records
Source: patient, records and spouse
ED Attending Note
-
Portions of this chart may have been created with voice recognition software.� Occasional wrong word or��sound alike� substitutions may have occurred due to the inherent limitations of voice recognition software.
Discharge Plan
Departure
Patient Disposition: Home (Routine Discharge)
Date of Disposition: 03/08/24
Time of Disposition: 20:31
Patient with high blood pressure during this ER visit?: Yes
Discharge Problem:
Chest pain
Instructions: Chest Pain CBC Follow Up
Prescriptions:
New
pantoprazole 40 mg tablet,delayed release (DR/EC)
40 mg PO DAILY Qty: 30 0RF
No Action
metformin 500 mg Tablet Extended Release 24 Hr
500 mg PO BID Qty: 60 0RF
aspirin 81 mg Tablet,Delayed Release (Dr/Ec)
81 mg PO DAILY
losartan 25 mg Tablet
12.5 mg PO DAILY Qty: 15 2RF
Jardiance 10 mg Tablet
10 mg PO DAILY Qty: 30 2RF
glipizide 5 mg tablet
2.5 mg PO BID
rosuvastatin 20 mg tablet
20 mg PO DAILY
furosemide [Lasix] 40 mg tablet
40 mg PO DAILY Qty: 30 0RF
Rx Instructions:
dose increased on this admission
potassium chloride 20 mEq tablet extended release
40 meq PO DAILY Qty: 60 0RF
clopidogrel [Plavix] 75 mg Tablet
75 mg PO DAILY
metoprolol succinate 25 mg Tablet Extended Release 24 Hr
25 mg PO BID Qty: 0 0RF
amiodarone 200 mg tablet
200 mg PO BID Qty: 30 0RF
Rx Instructions:
take twice a day till seen by cardiology in office
Referrals:
Chris Pérez MD [Active] - Call in 1-3 days for appt
Alexandre De La Torre MD [Family Provider] -
Activity Restrictions/Additional Instructions:
Thank you for visiting the Emergency Department at [facility].
1. Please schedule a follow up appointment as directed. Call first thing tomorrow morning to make an appointment.
2. If indicated, please take your medications as instructed and indicated on discharge paperwork.
3. If any of your symptoms do not improve, or persist, or become more severe within 6-12 hours, please return to the emergency department for further care.
4. Please return to the emergency department if you develop a headache, neck pain/stiffness, fever greater than 100.4F, chest pain, shortness of breath, persistent nausea, vomiting, slurred speech, difficulty walking, numbness/tingling, weakness,
signs of infection or any other symptoms that are worrisome to you.
Please call [phone] if you have any questions.
Interventions
Interventions:
*Risk Screen - Suicide Last Done: 03/08/24 15:06
*General Assessment Last Done: 03/08/24 20:17
*Neglect/Abuse Screening Last Done: 03/08/24 15:06
ED- Fall Risk Assessment Last Done: 03/08/24 16:54
*ED COVID-19 Vaccine History Last Done: 03/08/24 20:17
*Nursing Disposition Last Done: 03/08/24 20:27
ED- Cardiac Assessment Last Done: 03/08/24 17:37
Discharge Date and Time
Print Language: DIVEHI
[2024-03-08 19:00] VITALS: BP 106/63
[2024-03-08 19:18] LABS: Troponin I 0.021 ng/ml
== END 2024-03-08 20:35 | disposition home or self-care (01) ==
LOC: EMR 15:01
PROVIDERS: Emergency Medicine; EMERGENCY PHYSICIAN Emergency Medicine; FAMILY PHYSICIAN Family Medicine
DX: R07.89 Other chest pain (principal); E78.00 Pure hypercholesterolemia, unspecified; I11.0 Hypertensive heart disease with heart failure; I50.9 Heart failure, unspecified; E11.9 Type 2 diabetes mellitus without complications; I25.10 Atherosclerotic heart disease of native coronary artery without angina pectoris; F17.200 Nicotine dependence, unspecified, uncomplicated; Z86.73 Personal history of transient ischemic attack (TIA), and cerebral infarction without residual deficits
CPT/HCPCS: 99283; 71046; 80053; 84484; 85025; 93005

== ENCOUNTER → 2024-07-07 13:37 | Outpatient (REF) | payer BC, SELFPAY | LOC: MRI 13:37 | PROVIDERS: ATTENDING PHYSICIAN Nurse Practitioner; FAMILY PHYSICIAN Family Medicine | DX: I63.9 Cerebral infarction, unspecified (principal) | CPT/HCPCS: 70551 ==

== ENCOUNTER → 2024-07-27 08:32 | Outpatient (REF) | payer BC, SELFPAY | LOC: HWRAD 08:32 | PROVIDERS: ATTENDING PHYSICIAN Specialist; FAMILY PHYSICIAN Family Medicine | DX: N17.9 Acute kidney failure, unspecified (principal) | CPT/HCPCS: 76770 ==

== ENCOUNTER → 2024-11-06 08:12 | Outpatient (REF) | payer BC, SELFPAY | LOC: HWRAD 08:12 | PROVIDERS: ATTENDING PHYSICIAN Internal Medicine Critical Care Medicine; FAMILY PHYSICIAN Family Medicine; REFERRING PHYSICIAN Internal Medicine Cardiovascular Disease | DX: Z87.891 Personal history of nicotine dependence (principal) | CPT/HCPCS: 71271 ==

== ENCOUNTER → 2025-01-23 07:52 | Outpatient (REF) | payer BC, SELFPAY | LOC: HWRAD 07:52 | PROVIDERS: ATTENDING PHYSICIAN Family Medicine | DX: R74.8 Abnormal levels of other serum enzymes (principal); G62.9 Polyneuropathy, unspecified | CPT/HCPCS: 72110; 76700 ==

== ENCOUNTER 2025-02-19 19:06 | Emergency (ER) | payer BC, SELFPAY ==
[2025-02-19 19:07] VITALS: BP 122/78
[2025-02-19 19:38] LABS: Hematocrit 38.5 % (39.0-52.0); Hemoglobin 12.5 g/dL (13.0-18.0); Mean Corp Hgb Conc. 32.5 g/dL (33.0-37.0); Mean Corpuscular Volume 93.0 fL (80.0-94.0); Nucleated Red Blood Cells % 0 % (-); Platelet Count 265 10^3/uL (130-400); Red Cell Dist. Width 14.2 % (11.5-14.5)
[2025-02-19 19:52] LABS: ALT (SGPT) 83 U/L (0-50); AST (SGOT) 48 U/L (17-59); Albumin 4.3 g/dl (3.5-5.0); Alkaline Phosphatase 106 U/L (38-126); Blood Urea Nitrogen 25 mg/dl (9-20); Calcium 8.6 mg/dl (8.4-10.2); Carbon Dioxide 29 mmol/L (22-30); Chloride 106 mmol/L (98-107); Glucose 177 mg/dl (70-99); Potassium 4.8 mmol/L (3.5-5.1); Sodium 139 mmol/L (135-145); Total Protein 6.7 g/dl (6.3-8.2); eGFR 52.31
[2025-02-19 20:05] LABS: Troponin I 0.023 ng/ml
[2025-02-19 22:17] VITALS: BP 128/82
--- NOTE | 2025-02-19 22:52 | ED.GENMED ---
History of Present Illness
General
Chief Complaint: Chest Pain
Time Seen by Provider: 02/19/25 22:33
History of Present Illness
History of Present Illness:
64-year-old male with history of coronary artery disease, diabetes, and ventricular tachycardia status post AICD presents to the emergency department for evaluation of left-sided chest pain that began approximately 1 to 2 hours prior to arrival.
Pain was described as sharp and intermittent to the left chest wall, now resolved. He did take a nitroglycerin without improvement. Pain did not feel comparable to past heart attacks. No associated fever, chills, sweats, shortness of breath,
nausea, or vomiting. Currently asymptomatic.
Past History
Past History
ED Past Medical History: CVA and NIDDM
Social History
Tobacco: Smoker
Alcohol: None
Review of Systems
Review of Systems
Allergies reviewed?: Yes
All Other Systems: ROS reviewed and negative except as documented in HPI and ROS
Phy Exam
Physical Exam
Physical Exam:
GEN: Well appearing, NAD, WDWN
HEENT: Oral mucosa moist, no scleral icterus
Cardiac: Regular rate and rhythm, no murmur
Lung: No respiratory distress, no tachypnea, lungs clear to auscultation bilaterally
MSK: No gross deformity or injuries
Skin: Good color, no pallor or jaundice, no rashes
Neuro: AO x3, moves all extremities freely
Psych: Calm, cooperative
Scores
Heart Score for Chest Pain Patients
STEMI patient?: No
History: Slightly or Non-Suspicious
ECG: Normal
Age: >45 - <65 years
Risk Factors: >/= 3 Risk Factors or History of CAD
Troponin: </= Normal Limit
Heart Score for Chest Pain Patients: 3
Heart Score Risk: 2.5% MACE over next 6 weeks
Course
Orders/Labs/Results
Orders:
Orders
02/19/25 19:06
ECG [Electrocardiogram (*1)] Urgent
Reason for Study: Chest Pain
EKG- Treatment ONCE
02/19/25 19:22
Complete Blood Count/With Diff Urgent
Comprehensive Metabolic Panel Urgent
Troponin I Urgent
02/19/25 22:51
CR Chest - 2 Views Urgent
Comment:
Reason For Exam: chest pain
02/19/25 23:04
Troponin I Urgent
Abnormal Lab Results
02/19/25
19:22
RBC 4.14 L 10^6/uL
(4.70-6.10)
Hgb 12.5 L g/dL
(13.0-18.0)
Hct 38.5 L %
(39.0-52.0)
MCHC 32.5 L g/dL
(33.0-37.0)
BUN 25 H mg/dl
(9-20)
Creatinine 1.5 H mg/dL
(0.7-1.3)
Glucose 177 H mg/dl
(70-99)
ALT 83 H U/L
(0-50)
02/19/25 19:22
02/19/25 19:22
Vital Signs
Initial and Last Documented VS:
Initial Vital Signs
Temp Pulse Resp BP Pulse Ox
97.7 F 75 16 122/78 99
02/19/25 19:07 02/19/25 19:07 02/19/25 19:07 02/19/25 19:07 02/19/25 19:07
Last Documented Vital Signs
Temp Pulse Resp BP Pulse Ox
97.7 F 70 15 128/82 100
02/19/25 19:07 02/19/25 22:30 02/19/25 22:30 02/19/25 22:17 02/19/25 22:54
MDM/Problems Addressed
MDM/Problems Addressed:
Patient's initial and delta troponins are reassuring. Device interrogation confirmed through [facility] showing no events. The patient remained stable and pain-free in the emergency department. Likely musculoskeletal etiology, doubt angina
Comment
Comment:
EKG independently interpreted by me shows an AV paced rhythm
*Pulse Oximetry
SaO2: 100
Oxygen Mode of Delivery: Room air
Patient hypoxic: no
*Critical Care Note
Total Time (30-74mins, 75-104mins- exclusive of procedures): Not Applicable
ED Attending Note
-
Portions of this chart may have been created with voice recognition software.� Occasional wrong word or��sound alike� substitutions may have occurred due to the inherent limitations of voice recognition software.
Discharge Plan
Departure
Patient Disposition: Home (Routine Discharge)
Date of Disposition: 02/20/25
Time of Disposition: 00:14
Patient with high blood pressure during this ER visit?: No
Discharge Problem:
Atypical chest pain
Instructions: Chest Pain That Is Not Caused by the Heart (DC)
Prescriptions:
No Action
metformin 500 mg Tablet Extended Release 24 Hr
500 mg PO BID Qty: 60 0RF
aspirin 81 mg Tablet,Delayed Release (Dr/Ec)
81 mg PO DAILY
losartan 25 mg Tablet
12.5 mg PO DAILY Qty: 15 2RF
Jardiance 10 mg Tablet
10 mg PO DAILY Qty: 30 2RF
glipizide 5 mg tablet
2.5 mg PO BID
rosuvastatin 20 mg tablet
20 mg PO DAILY
furosemide [Lasix] 40 mg tablet
40 mg PO DAILY Qty: 30 0RF
Rx Instructions:
dose increased on this admission
potassium chloride 20 mEq tablet extended release
40 meq PO DAILY Qty: 60 0RF
clopidogrel [Plavix] 75 mg Tablet
75 mg PO DAILY
metoprolol succinate 25 mg Tablet Extended Release 24 Hr
25 mg PO BID Qty: 0 0RF
amiodarone 200 mg tablet
200 mg PO BID Qty: 30 0RF
Rx Instructions:
take twice a day till seen by cardiology in office
pantoprazole 40 mg tablet,delayed release (DR/EC)
40 mg PO DAILY Qty: 30 0RF
Referrals:
Alexandre De La Torre MD [Family Provider, Family Practice]
Interventions
Interventions:
*Risk Screen - Suicide Last Done: 02/19/25 19:07
*General Assessment Last Done: 02/19/25 19:07
*Neglect/Abuse Screening Last Done: 02/19/25 19:07
*ED- Fall Risk Assessment Last Done: 02/19/25 19:07
*ED COVID-19 Vaccine History Last Done: 02/19/25 19:07
Discharge Date and Time
Print Language: GERMAN
[2025-02-19 23:33] LABS: Troponin I 0.028 ng/ml
== END 2025-02-20 00:34 | disposition home or self-care (01) ==
LOC: EMR 19:06
PROVIDERS: Emergency Medicine; Physician Assistant; EMERGENCY PHYSICIAN Emergency Medicine; FAMILY PHYSICIAN Family Medicine
DX: R07.89 Other chest pain (principal); I25.10 Atherosclerotic heart disease of native coronary artery without angina pectoris; E11.9 Type 2 diabetes mellitus without complications; F17.200 Nicotine dependence, unspecified, uncomplicated; Z86.73 Personal history of transient ischemic attack (TIA), and cerebral infarction without residual deficits; Z95.810 Presence of automatic (implantable) cardiac defibrillator
CPT/HCPCS: 99285; 71046; 80053; 84484; 85025; 93005

== ENCOUNTER → 2025-03-13 12:51 | Outpatient (REF) | payer BC, SELFPAY | LOC: RSP 12:51 | PROVIDERS: ATTENDING PHYSICIAN Internal Medicine Cardiovascular Disease; FAMILY PHYSICIAN Family Medicine | DX: Z79.899 Other long term (current) drug therapy (principal) | CPT/HCPCS: 94010; 94727; 94729 ==

== ENCOUNTER → 2025-03-28 15:48 | Outpatient (REF) | payer BC, SELFPAY | LOC: RCS 15:48 | PROVIDERS: ATTENDING PHYSICIAN Nurse Practitioner Acute Care; FAMILY PHYSICIAN Family Medicine | DX: I50.22 Chronic systolic (congestive) heart failure (principal); I25.5 Ischemic cardiomyopathy | CPT/HCPCS: 93306 ==

== ENCOUNTER → 2025-05-24 10:51 | Outpatient (REF) | payer BC, SELFPAY | LOC: RAD 10:51 | PROVIDERS: ATTENDING PHYSICIAN Nurse Practitioner Family | DX: N50.89 Other specified disorders of the male genital organs (principal) | CPT/HCPCS: 76870; 93976 ==

== ENCOUNTER → 2025-05-28 08:02 | Outpatient (REF) | payer BC, SELFPAY | LOC: RAD 08:02 | PROVIDERS: ATTENDING PHYSICIAN Internal Medicine Cardiovascular Disease; FAMILY PHYSICIAN Family Medicine | DX: R20.2 Paresthesia of skin (principal) | CPT/HCPCS: 93922; 93925 ==